=== PATIENT | female | born 1990 | race Caucasian/White ===

== ENCOUNTER 2017-02-10 19:51 | Inpatient (IN) | payer SELFPAY ==
[2017-02-10] MEDS ORDERED: LORazepam TAB(*) 1 MG PO ONE ×2 (20:29→21:17)
[2017-02-10 21:53] LABS: Hematocrit 25 % (35-47); Hemoglobin 7.6 g/dl (12.0-16.0); Mean Corpuscular HGB Conc 30 g/dl (31-36); Mean Corpuscular Hemoglobin 24 pg (27-31); Mean Corpuscular Volume 78 fL (80-97); Red Cell Distribution Width 18 % (10.5-15); White Blood Count 3.4 10^3/ul (3.5-10.8)
[2017-02-10 21:56] LABS: Comments Flag Yes
[2017-02-10 21:57] LABS: Add Diff/Slide Review? Slide Review Added
[2017-02-10 22:07] LABS: ALT 143 U/L (7-52); AST 277 U/L (13-39); Acetaminophen < 15 mcg/mL; Albumin 4.3 g/dL (3.2-5.2); Alcohol 145 mg/dL (<10); Alkaline Phosphatase 132 U/L (34-104); Anion Gap 14 mmol/L (2-11); Blood Urea Nitrogen 9 mg/dL (6-24); CO2 Carbon Dioxide 23 mmol/L (22-32); Calcium 9.3 mg/dL (8.6-10.3); Carbamazepine 4.7 mcg/mL (4.0-12.0); Chloride 99 mmol/L (101-111); Creatine Kinase 45 U/L (10-223); EGFR African American 216.6 (>60); EGFR Non-African American 168.4 (>60); Globulin 3.1 g/dL (2-4); Glucose 84 mg/dL (70-100); Potassium 3.9 mmol/L (3.5-5.0); Salicylate < 2.50 mg/dL (<30); Sodium 136 mmol/L (133-145); Total Protein 7.4 g/dL (6.4-8.9)
[2017-02-10 22:16] LABS: Mean Platelet Volume 8 um3 (7.4-10.4); TSH (Thyroid Stimulating Horm) 0.81 mcIU/mL (0.34-5.60)
[2017-02-10 22:17] LABS: Macrocytosis 1+; Microcytosis 1+
[2017-02-10 22:18] LABS: Add Path Review? YES; Spherocytes 1+; Target Cells 1+
[2017-02-10] MEDS ORDERED: Thiamine IV* 100 MG, Folic Acid IV* 1 MG, Multiple Vitamin IV ADULT* 10 ML in NS 0.9% 1... IV ONE (22:21)
[2017-02-10] MEDS ORDERED: Magnesium Sulfate 2 GM IV* 2 GM/50 ML BAG IVPB ONE (22:22)
[2017-02-10 22:49] LABS: Magnesium 1.8 mg/dL (1.9-2.7)
--- NOTE | 2017-02-10 23:26 | HP ---
H&P (Free Text) History and Physical: PCP: none Date/Time of Evaluation: 01/2300 CC: tremors, alcohol withdrawal HPI: Mrs Oneal is a 26YO homeless female alcoholic tremulous and tachycardic. She last drank one 24oz beer this AM seemingly incompatible with her current serum alcohol of 145. However, when asked how much she drank last night she replies, "That's a different story." and admits to drinking approximately seven 24oz beers last night. She states she has some discomfort with deep breathing, but denies cough, congestion, F/C, N/V, abdominal pain, chest pain, palpitations , black/bloody stool, or other issues. She took tegretol earlier to see if it would help and presented when it "didn't do much". Initially she was NSR, but with ED observation she became more tremulous and developed tachycardia in the low 100s consistent with evolving delirium tremens and will be admitted for management. PMedHx alcoholism Allergies No Known Allergies Allergy (Verified 02/10/17 20:29) Ambulatory Orders carBAMazepine ER TAB(*) [Tegretol Xr TAB(*)] 200 mg PO BID 11/06/16 PSurgHx x2 SocHx: 1/2PPD cigarettes, 6-7 24oz beers daily, denies recreational drugs; [place] full code status FamHx: Mother, Father, brothers x4, & sisters x3 all healthy. One brother passed from being "decapitated by a train". ROS: as above, otherwise reviewed and all were negative Constitutional: NAD, normally developed, malnourished, unkempt, malodorous white female vitals: Vital Signs Temp 37.2 C 02/10/17 20:32 Pulse 106 02/10/17 23:00 Resp 16 02/10/17 22:19 BP 104/62 02/10/17 23:00 Pulse Ox 96 02/10/17 23:00 Intake & Output 02/09/17 02/10/17 02/10/17 23:59 11:59 23:59 Weight 53.524 kg HEENM: atraumatic; sclera/conjunctiva: non-icteric/clear; hearing: intact; oropharynx: clear, mucosa moist Neck: soft tissue: non-tender; thyroid: normal Pulmonary: clear to auscultation bilaterally, good aeration, no accessory muscle use CV: RR/RR, normal S1S2, no carotid bruit, no jugular venous distention, 2+ B DP/ PT, no edema Abdominal: soft, non-distended, non-tender, no rebound/guarding/rigidity, normoactive bowel sounds, no hepatosplenomegaly or masses, no costovertebral angle tenderness Musculoskeletal: general: grossly intact; gait: stable Integumental: normal appearance and texture of exposed skin Psychiatric orientation: AA&O to PPS affect: calm mood: cooperative eye contact: poor content: not forthcoming responses: evasive insight: poor to fair Testing: Lab Results 02/10/17 02/10/17 02/10/17 Range/Units 21:23 21:23 21:23 WBC 3.4 L (3.5-10.8) 10^3/ul RBC 3.20 L (4.0-5.4) 10^6/ul Hgb 7.6 L (12.0-16.0) g/dl Hct 25 L (35-47) % MCV 78 L (80-97) fL MCH 24 L (27-31) pg MCHC 30 L (31-36) g/dl RDW 18 H (10.5-15) % Plt Count 90 L (150-450) 10^3/ul MPV 8 (7.4-10.4) um3 Neut % (Auto) 76.4 (38-83) % Lymph % (Auto) 13.5 L (25-47) % [place] % (Auto) 8.5 (1-9) % Eos % (Auto) 0.9 (0-6) % Baso % (Auto) 0.7 (0-2) % Absolute Neuts (auto) 2.6 (1.5-7.7) 10^3/ul Absolute Lymphs (auto) 0.5 L (1.0-4.8) 10^3/ul Absolute Monos (auto) 0.3 (0-0.8) 10^3/ul Absolute Eos (auto) 0 (0-0.6) 10^3/ul Absolute Basos (auto) 0 (0-0.2) 10^3/ul Absolute Nucleated RBC 0 10^3/ul Nucleated RBC % 0.1 Normal RBC Morphology Not Reportable Microcytosis 1+ Macrocytosis 1+ Spherocytes 1+ Target Cells 1+ Elliptocytes 1+ Hem Pathologist Commnt Pending Sodium 136 (133-145) mmol/L Potassium 3.9 (3.5-5.0) mmol/L Chloride 99 L (101-111) mmol/L Carbon Dioxide 23 (22-32) mmol/L Anion Gap 14 H (2-11) mmol/L BUN 9 (6-24) mg/dL Creatinine 0.45 L (0.51-0.95) mg/dL Est GFR ( Amer) 216.6 (>60) Est GFR (Non-Af Amer) 168.4 (>60) BUN/Creatinine Ratio 20.0 (8-20) Glucose 84 (70-100) mg/dL Lactic Acid 3.2 H* (0.5-2.0) mmol/L Calcium 9.3 (8.6-10.3) mg/dL Magnesium 1.8 L (1.9-2.7) mg/dL Total Bilirubin 0.60 (0.2-1.0) mg/dL AST 277 H (13-39) U/L ALT 143 H (7-52) U/L Alkaline Phosphatase 132 H (34-104) U/L Total Creatine Kinase 45 (10-223) U/L Total Protein 7.4 (6.4-8.9) g/dL Albumin 4.3 (3.2-5.2) g/dL Globulin 3.1 (2-4) g/dL Albumin/Globulin Ratio 1.4 (1-3) TSH 0.81 (0.34-5.60) mcIU/mL Salicylates < 2.50 (<30) mg/dL Acetaminophen < 15 mcg/mL Carbamazepine 4.7 (4.0-12.0) mcg/mL Serum Alcohol 145 H (<10) mg/dL ECG, personally reviewed: NSR rate 83, no ischemia CXR: ordered, pending Impression: 26F alcoholic experiencing withdrawal DIAGNOSIS & PLAN Primary alcohol withdrawal : AST/ALT consistent, increased from prior : replete Mg++ : WAM protocol : IVFs : social media developer consult : supportive care discomfort w/ inspiration : check CXR pancytopenia : suspect toxic marrow effect of alcohol anemia, worse, newly microcytic : suspect 2nd alcoholic gastritis vs subacute/recent GI bleed : type & screen : check anemia labs : check stool for occult blood : trend H&H Admission Rational: inpatient for alcohol withdrawal not anticipated to adequately controlled w/i 48h to allow for discharge DVTp: NORBERTO Code Status: full
--- NOTE | 2017-02-10 23:29 | ED ---
renae Ospina Timothy, scribed for Jai Yang MD on 02/10/17 at 2020 . Substance Abuse/Use - HPI Summary HPI Summary: Lor Oneal is a 26 yo female presenting to [facility] with EtOH withdrawal. She is presenting with nausea, flashes of white light, shaking, chills, diarrhea 2x today, heart palpitaions for the past few days. She had one beer this morning, two beers yesterday, and her normal 1L of vodka the day before. She is on tegretol for seizures, but has not been medicating as prescribed. She was lsat in rehab 8 months ago for 28 days, voluntarily. She denies any substance use, vomiting, fever, abd pain or rapid weight loss. She is looking to get into some kind of rehab. She states she has vitamin deficiencies. She is currently homeless. Her MHx includes seizures, asthma, Hep C, anxiety, heroin abuse, alcohol abuse, tobacco use. - History Of Current Complaint Stated Complaint: ETOH WITHDRAWL Time Seen by Provider: 02/10/17 20:20 Hx Obtained From: Patient Ingestion History: Type/Name Of Drug - EtOH Overdose Characteristics: Oral Severity Initially: Moderate Severity Currently: Moderate Associated Signs And Symptoms: Palpitations, Nausea, Diarrhea, Palpitations, Other: - white flashes of light, tremors at rest, chills Related Hx: Drug/Alcohol Last Used @ - this morning, EtOH - 1 beer - Allergies/Home Medications Allergies/Adverse Reactions: Allergies Allergy/AdvReac Type Severity Reaction Status Date / Time No Known Allergies Allergy Verified 02/10/17 20:29 PMH/Surg Hx/FS Hx/Imm Hx Respiratory History: Reports: Hx Asthma GI History: Reports: Other GI Disorders - Hepatitis C Neurological History: Reports: Hx Seizures Psychiatric History: Reports: Hx Anxiety, Hx Substance Abuse - hx heroin abuse - stopped suboxone 12/2015, etoh abuse - Surgical History Surgery Procedure, Year, and Place: x2 Infectious Disease History: Reports: Hx Hepatitis - HCV Denies: Traveled Outside the [place] in Last 30 Days - Family History Known Family History: Positive: Hypertension Negative: Other - alcohol abuse - Social History Alcohol Use: Daily Alcohol Amount: one liter of vodka per day Hx Substance Use: Yes Substance Use Type: Reports: Heroin Substance Use Comment - Amount & Last Used: former heroin use per pt Hx Tobacco Use: No Smoking Status (MU): Light Every Day Tobacco Smoker Type: Cigarettes Have You Smoked in the Last Year: Yes Review of Systems Positive: Chills, Fatigue, Other - tremors Eyes: Other - white flashes ENT: Negative Positive: Palpitations Respiratory: Negative Positive: Diarrhea, Nausea. Negative: Abdominal Pain, Vomiting Genitourinary: Negative Musculoskeletal: Negative Skin: Negative Neurological: Negative Psychological: Normal All Other Systems Reviewed And Are Negative: Yes Physical Exam - Summary Physical Exam Summary: The patient is well-nourished in no acute distress and in no acute pain, she has a tremor at rest. The skin is warm and dry and skin color reflects adequate perfusion. HEENT: The head is normocephalic and atraumatic. The pupils are equal and reactive. The conjunctivae are clear and without drainage. Nares are patent and without drainage. Mouth reveals dry mucous membranes and the throat is without erythema and exudate. The external ears are intact. The ear canals are patent and without drainage. The tympanic membranes are intact. Neck is supple with full range of motion and non-tender. There are no carotid bruits. There is no neck vein distension. Respiratory: Chest is non-tender. Lungs are clear to auscultation and breath sounds are symmetrical and equal. Cardiovascular: Heart is regular rate and rhythm. There is no murmur or rub auscultated. There is no peripheral edema and distal pulses are symmetrical and equal. Abdomen: The abdomen is soft and non-tender. There are normal bowel sounds heard in all four quadrants and there is no organomegaly palpated. Musculoskeletal: There is no back pain noted. Extremities are non-tender with full range of motion. There is good capillary refill. There is no peripheral edema or calf tenderness elicited. Neurological: Patient is alert and oriented to person, place and time. The patient has symmetrical motor strength in all four extremities. Cranial nerves are grossly intact. Deep tendon reflexes are symmetrical and equal in all four extremities. Pt can perform finger to nose with no difficulty Psychiatric: The patient has an appropriate affect and does not exhibit any anxiety or depression. Triage Information Reviewed: Yes Vital Signs On Initial Exam: Initial Vital Signs Temp 98.9 F 02/10/17 20:32 Pulse 93 02/10/17 20:32 Resp 16 02/10/17 20:32 BP 120/75 02/10/17 20:32 Pulse Ox 97 02/10/17 20:32 Vital Signs Reviewed: Yes Diagnostics - Vital Signs Vital Signs Temp Pulse Resp BP Pulse Ox 02/10/17 22:39 104 95 02/10/17 22:30 106/72 02/10/17 22:21 102 96 02/10/17 22:20 93 96 02/10/17 22:19 98 16 104/59 95 02/10/17 21:06 82 16 132/76 100 02/10/17 20:49 16 02/10/17 20:32 98.9 F 93 16 120/75 97 - Laboratory Lab Results: Lab Results 02/10/17 02/10/17 02/10/17 Range/Units 21:23 21:23 21:23 WBC 3.4 L (3.5-10.8) 10^3/ul RBC 3.20 L (4.0-5.4) 10^6/ul Hgb 7.6 L (12.0-16.0) g/dl Hct 25 L (35-47) % MCV 78 L (80-97) fL MCH 24 L (27-31) pg MCHC 30 L (31-36) g/dl RDW 18 H (10.5-15) % Plt Count 90 L (150-450) 10^3/ul MPV 8 (7.4-10.4) um3 Neut % (Auto) 76.4 (38-83) % Lymph % (Auto) 13.5 L (25-47) % [place] % (Auto) 8.5 (1-9) % Eos % (Auto) 0.9 (0-6) % Baso % (Auto) 0.7 (0-2) % Absolute Neuts (auto) 2.6 (1.5-7.7) 10^3/ul Absolute Lymphs (auto) 0.5 L (1.0-4.8) 10^3/ul Absolute Monos (auto) 0.3 (0-0.8) 10^3/ul Absolute Eos (auto) 0 (0-0.6) 10^3/ul Absolute Basos (auto) 0 (0-0.2) 10^3/ul Absolute Nucleated RBC 0 10^3/ul Nucleated RBC % 0.1 Normal RBC Morphology Not Reportable Microcytosis 1+ Macrocytosis 1+ Spherocytes 1+ Target Cells 1+ Elliptocytes 1+ Hem Pathologist Commnt Pending Sodium 136 (133-145) mmol/L Potassium 3.9 (3.5-5.0) mmol/L Chloride 99 L (101-111) mmol/L Carbon Dioxide 23 (22-32) mmol/L Anion Gap 14 H (2-11) mmol/L BUN 9 (6-24) mg/dL Creatinine 0.45 L (0.51-0.95) mg/dL Est GFR ( Amer) 216.6 (>60) Est GFR (Non-Af Amer) 168.4 (>60) BUN/Creatinine Ratio 20.0 (8-20) Glucose 84 (70-100) mg/dL Lactic Acid 3.2 H* (0.5-2.0) mmol/L Calcium 9.3 (8.6-10.3) mg/dL Magnesium 1.8 L (1.9-2.7) mg/dL Total Bilirubin 0.60 (0.2-1.0) mg/dL AST 277 H (13-39) U/L ALT 143 H (7-52) U/L Alkaline Phosphatase 132 H (34-104) U/L Total Creatine Kinase 45 (10-223) U/L Total Protein 7.4 (6.4-8.9) g/dL Albumin 4.3 (3.2-5.2) g/dL Globulin 3.1 (2-4) g/dL Albumin/Globulin Ratio 1.4 (1-3) TSH 0.81 (0.34-5.60) mcIU/mL Salicylates < 2.50 (<30) mg/dL Acetaminophen < 15 mcg/mL Carbamazepine 4.7 (4.0-12.0) mcg/mL Serum Alcohol 145 H (<10) mg/dL Result Diagrams: 02/10/17 21:23 02/10/17 21:23 Lab Statement: Any lab studies that have been ordered have been reviewed, and results considered in the medical decision making process. - EKG 2032 Cardiac Rate: NL - 83 BPM EKG Interpretation: NSR @ 83 BPM, normal axis, normal EKG. Some artifact, Pt w/ tremors Course/Dx - Course Assessment/Plan: Lor Oneal is a 26 yo female presenting [facility] with EtOH withdrawal, c/o termors, chills, ausea, flashes of white light, diarrhea 2x today, and heart palpitaions for the past few days. Her H&H was low, her LFT's were high, note high lactic acid of 3.2. Pt was shaking and exhibiting signs of alcohol withdrawal in room. Though she states she only had one beer today, her serum alcohol levels were 145. After clinical examination, normal EKG, and review of her lab work, as well as discussion with Dr. Valadez, she will be admitted to [facility] for detox with alcohol withdrawal, pancytopenia, and alcohol abuse. - Diagnoses Differential Diagnosis/HQI/PQRI: Positive: Alcohol Withdrawal Provider Diagnoses: Alcohol withdrawal, Alcohol abuse, Pancytopenia - Physician Notifications Discussed Care Of Patient With: 2220 - Dr. Valadez (hospitalist) - discussed Pt condition, agrees to admit Pt. Instructed by Provider To: Admit As Inpatient Discharge - Discharge Plan Condition: Stable Disposition: ADMITTED TO [facility] Discharge Disposition Comment: admitted for alcohol withdrawal and detoxification. The documentation as recorded by the renae diaz Timothy accurately reflects the service I personally performed and the decisions made by me, Jai Yang MD.
[2017-02-11] MEDS ORDERED: Albuterol 2.5 MG/3 ML NEB.SOL* (0.083%) INH PRN (00:19)
[2017-02-11] MEDS ORDERED: Acetaminophen TAB* 325 MG PO PRN (00:19)
[2017-02-11 00:43] LABS: Corrected Retic Count 1.2 % (0.5-1.5)
[2017-02-11 00:52] LABS: Total Iron Binding Capacity 444 mcg/dL (250-450); Transferrin 317 mg/dL (203-362)
[2017-02-11 01:14] LABS: Ferritin 41.7 ng/mL (11-307)
[2017-02-11 01:16] LABS: Iron < 15 ug/dL (50-212)
[2017-02-11 01:18] LABS: Vitamin B12 962 pg/mL (180-914)
[2017-02-11 01:52] LABS: Urine Bacteria 1+ (Absent); Urine Bilirubin Negative (Negative); Urine Glucose Negative (Negative); Urine Nitrite Positive (Negative)
[2017-02-11 02:01] LABS: Benzodiazepine Urine Screen None Detected (None Detect)
[2017-02-11 02:11] LABS: Hematocrit 24 % (35-47); Hemoglobin 7.6 g/dl (12.0-16.0)
[2017-02-11 02:17] LABS: Comments Flag Yes
[2017-02-11] MEDS ORDERED: Mouth Piece, Nicotine* 1 EACH CARTRIDGE INH ONE (03:00)
[2017-02-11] MEDS: LORazepam INJ* 2 MG/ML 1 ML VIAL IV SCH ×3 (04:03→15:56)
[2017-02-11 06:27] LABS: Hematocrit 23 % (35-47); Mean Corpuscular HGB Conc 31 g/dl (31-36); Mean Corpuscular Hemoglobin 24 pg (27-31); Mean Corpuscular Volume 77 fL (80-97); Mean Platelet Volume 9 um3 (7.4-10.4); Red Cell Distribution Width 17 % (10.5-15); White Blood Count 2.3 10^3/ul (3.5-10.8)
[2017-02-11 06:28] LABS: Comments Flag Yes
[2017-02-11] MEDS: NS 0.9% 1000 ML* 1,000 ML IV SCH ×2 (07:10→17:59)
--- NOTE | 2017-02-11 07:53 | RAD ---
INDICATION: Chest pain with inspiration COMPARISON: Rib series November 06, 2016 TECHNIQUE: An AP portable view obtained at 0053 hours is submitted. FINDINGS: Bones/Soft Tissues: There are no acute bony findings. Cardiomediastinal: The cardiomediastinal silhouette is normal. Lungs: There are no infiltrates. There is no pneumothorax Pleura: There are no pleural effusions. Other: None IMPRESSION: NEGATIVE EXAMINATION.
[2017-02-11] MEDS: Multivitamins/Minerals TAB PO SCH (08:17)
[2017-02-11] MEDS: Folic Acid TAB* 1 MG PO SCH (08:17)
[2017-02-11] MEDS: Thiamine TAB* 100 MG TAB PO SCH (08:17)
[2017-02-11] MEDS ORDERED: LORazepam TAB(*) 1 MG PO ONE (10:34)
[2017-02-11] MEDS: chlordiazePOXIDE CAP* 25 MG PO SCH ×3 (10:49→20:49)
[2017-02-11] MEDS ORDERED: Loperamide CAP* 2 MG PO ONE (11:19)
--- NOTE | 2017-02-11 12:59 | PN ---
Subjective Date of Service: 02/11/17 Interval History: Patient seen and examined at bedside. Lor is sitting on edge of bed, eating breakfast. She denies CP, SOB, abd pain. She reports that her diarrhea usually goes away when she drinks alcohol; she usually has diarrhea intermittently but has never had any workup or official diagnosis of this. She reports occasional palpitations. She expressed concern for her hair falling out and flaking seen in her hair. She reports that she has "a plan" for alcohol rehab in [place] and had a ride. She does not want to go straight from [facility] to there because she wants to go get her bag that is stored "[place]where [place] Telemetry: Sinus tachycardia 100s-120s Family History: Unchanged from Admission Social History: Unchanged from Admission Past Medical History: Unchanged from Admission Objective Active Medications: Acetaminophen (Tylenol Tab*) 650 mg PO Q4H PRN PRN Reason: PAIN Last Admin: 02/11/17 04:04 Dose: 650 mg Albuterol (Ventolin 2.5 Mg/3 Ml Neb.Jo*) 2.5 mg INH Q2H PRN PRN Reason: SOB/WHEEZING Chlordiazepoxide (Librium Cap*) 50 mg PO TID [facility] Last Admin: 02/11/17 10:49 Dose: 50 mg Folic Acid (Folvite Tab*) 1 mg PO DAILY [facility] Last Admin: 02/11/17 08:17 Dose: 1 mg Heparin Sodium (Porcine) (Heparin Flush Picc/Ml/Cvc(*)) 1 - 3 ml FLUSH 0600, 1800 [facility] PRN Reason: Protocol Sodium Chloride (Ns 0.9% 1000 Ml*) 1,000 mls @ 125 mls/hr IV PER RATE [facility] Last Admin: 02/11/17 07:10 Dose: 125 mls/hr Lorazepam (Ativan Inj*) 0 mg IV .PER WAM SCORE [facility] PRN Reason: Protocol Last Admin: 02/11/17 08:16 Dose: 2 mg Multivitamins/Minerals (Theragran/Minerals Tab*) 1 tab PO DAILY [facility] Last Admin: 02/11/17 08:17 Dose: 1 tab Nicotine (Nicotine Inhaler*) 10 mg INH Q2H PRN PRN Reason: CRAVING Thiamine HCl (Vitamin B-1 Tab*) 100 mg PO DAILY [facility] Last Admin: 03/15/17 08:17 Dose: 100 mg Vital Signs 02/10/17 02/10/17 02/10/17 23:00 23:11 23:30 Temperature Pulse Rate 106 Respiratory 14 13 Rate Blood Pressure 104/62 104/62 (mmHg) O2 Sat by Pulse 96 Oximetry 02/11/17 02/11/17 02/11/17 00:11 00:20 00:30 Temperature Pulse Rate Respiratory 16 11 Rate Blood Pressure 113/69 (mmHg) O2 Sat by Pulse Oximetry 02/11/17 02/11/17 02/11/17 01:00 01:30 01:48 Temperature Pulse Rate 174 175 106 Respiratory 18 Rate Blood Pressure (mmHg) O2 Sat by Pulse 100 100 96 Oximetry 02/11/17 02/11/17 02/11/17 01:53 02:00 02:30 Temperature 98.5 F Pulse Rate 112 161 Respiratory 18 14 Rate Blood Pressure 113/69 (mmHg) O2 Sat by Pulse 99 100 Oximetry 02/11/17 02/11/17 02/11/17 03:00 03:30 03:52 Temperature 99.1 F Pulse Rate 185 170 115 Respiratory 20 Rate Blood Pressure 124/69 (mmHg) O2 Sat by Pulse 100 100 98 Oximetry 02/11/17 02/11/17 02/11/17 04:00 04:03 04:30 Temperature Pulse Rate 156 168 Respiratory 20 Rate Blood Pressure (mmHg) O2 Sat by Pulse 100 100 Oximetry 02/11/17 02/11/17 02/11/17 05:00 05:03 05:30 Temperature Pulse Rate 168 Respiratory 39 18 18 Rate Blood Pressure (mmHg) O2 Sat by Pulse 100 Oximetry 02/11/17 02/11/17 02/11/17 06:00 06:30 07:00 Temperature Pulse Rate Respiratory 14 14 14 Rate Blood Pressure (mmHg) O2 Sat by Pulse Oximetry 02/11/17 02/11/17 02/11/17 07:28 07:30 07:52 Temperature 98.9 F Pulse Rate 97 Respiratory 19 14 16 Rate Blood Pressure 122/62 (mmHg) O2 Sat by Pulse 99 Oximetry 02/11/17 02/11/17 02/11/17 08:00 08:16 08:30 Temperature Pulse Rate Respiratory 18 18 11 Rate Blood Pressure (mmHg) O2 Sat by Pulse Oximetry 02/11/17 02/11/17 02/11/17 09:00 09:16 09:30 Temperature Pulse Rate Respiratory 19 16 15 Rate Blood Pressure (mmHg) O2 Sat by Pulse Oximetry 02/11/17 02/11/17 02/11/17 09:59 10:00 10:30 Temperature Pulse Rate Respiratory 15 17 16 Rate Blood Pressure 108/64 111/64 (mmHg) O2 Sat by Pulse Oximetry 02/11/17 02/11/17 02/11/17 10:49 11:00 11:30 Temperature Pulse Rate Respiratory 18 19 15 Rate Blood Pressure (mmHg) O2 Sat by Pulse Oximetry 02/11/17 02/11/17 02/11/17 11:54 12:00 12:30 Temperature Pulse Rate Respiratory 18 17 17 Rate Blood Pressure 112/81 (mmHg) O2 Sat by Pulse Oximetry Oxygen Devices in Use Now: None Appearance: Young female, disheveled, sitting up, in NAD Eyes: PERRLA Ears/Nose/Mouth/Throat: Mucous Membranes Moist Neck: NL Appearance and Movements; NL JVP Respiratory: Symmetrical Chest Expansion and Respiratory Effort, Clear to Auscultation Cardiovascular: NL Sounds; No Murmurs; No JVD, RRR - tachycardic Abdominal: NL Sounds; No Tenderness; No Distention Extremities: No Edema Skin: - - dry skin to BLE; alopecia and significant sebhorrheic dermatatis noted to scalp Neurological: Alert and Oriented x 3 Lines/Tubes/Other Access: Clean, Dry and Intact PICC Line - midline Nutrition: Taking PO's Result Diagrams: 02/11/17 06:17 02/10/17 21:23 Additional Lab and Data: Lab Results 02/10/17 02/10/17 02/10/17 Range/Units 21:23 21:23 21:23 WBC 3.4 L (3.5-10.8) 10^3/ul RBC 3.20 L (4.0-5.4) 10^6/ul Hgb 7.6 L (12.0-16.0) g/dl Hct 25 L (35-47) % MCV 78 L (80-97) fL MCH 24 L (27-31) pg MCHC 30 L (31-36) g/dl RDW 18 H (10.5-15) % Plt Count 90 L (150-450) 10^3/ul MPV 8 (7.4-10.4) um3 Neut % (Auto) 76.4 (38-83) % Lymph % (Auto) 13.5 L (25-47) % [place] % (Auto) 8.5 (1-9) % Eos % (Auto) 0.9 (0-6) % Baso % (Auto) 0.7 (0-2) % Absolute Neuts (auto) 2.6 (1.5-7.7) 10^3/ul Absolute Lymphs (auto) 0.5 L (1.0-4.8) 10^3/ul Absolute Monos (auto) 0.3 (0-0.8) 10^3/ul Absolute Eos (auto) 0 (0-0.6) 10^3/ul Absolute Basos (auto) 0 (0-0.2) 10^3/ul Absolute Nucleated RBC 0 10^3/ul Nucleated RBC % 0.1 Normal RBC Morphology Not Reportable Microcytosis 1+ Macrocytosis 1+ Spherocytes 1+ Target Cells 1+ Elliptocytes 1+ Hem Pathologist Commnt Pending Sodium 136 (133-145) mmol/L Potassium 3.9 (3.5-5.0) mmol/L Chloride 99 L (101-111) mmol/L Carbon Dioxide 23 (22-32) mmol/L Anion Gap 14 H (2-11) mmol/L BUN 9 (6-24) mg/dL Creatinine 0.45 L (0.51-0.95) mg/dL Est GFR ( Amer) 216.6 (>60) Est GFR (Non-Af Amer) 168.4 (>60) BUN/Creatinine Ratio 20.0 (8-20) Glucose 84 (70-100) mg/dL Lactic Acid 3.2 H* (0.5-2.0) mmol/L Calcium 9.3 (8.6-10.3) mg/dL Magnesium 1.8 L (1.9-2.7) mg/dL Total Bilirubin 0.60 (0.2-1.0) mg/dL AST 277 H (13-39) U/L ALT 143 H (7-52) U/L Alkaline Phosphatase 132 H (34-104) U/L Total Creatine Kinase 45 (10-223) U/L Total Protein 7.4 (6.4-8.9) g/dL Albumin 4.3 (3.2-5.2) g/dL Globulin 3.1 (2-4) g/dL Albumin/Globulin Ratio 1.4 (1-3) TSH 0.81 (0.34-5.60) mcIU/mL Salicylates < 2.50 (<30) mg/dL Acetaminophen < 15 mcg/mL Carbamazepine 4.7 (4.0-12.0) mcg/mL Serum Alcohol 145 H (<10) mg/dL Microbiology and Other Data: Microbiology 02/11/17 11:10 Stool Occult Blood (CONSTANZA) - Final Stool Assess/Plan/Problems-Billing Assessment: Ms. Oneal is a 26 yo female with a PMH of ETOH abuse and pancytopenia who presented to the ED on 02/10/17 with tremors and tachycardia that is likely secondary to alcohol withdrawal. - Patient Problems (1) Alcohol withdrawal Code(s): F10.239 - ALCOHOL DEPENDENCE WITH WITHDRAWAL, UNSPECIFIED Comment: WAM protocol with prn lorazepam Will add Librium, as there is currently no IV access. Order for midline placed. No seizure activity noted. Continue IVF, thiamine, fall precautions. SW consult for outpatient treatment options. (2) Pancytopenia Code(s): D61.818 - OTHER PANCYTOPENIA Comment: Stool occult negative. Suspect this is secondary to liver disease and alcohol use. Will continue to trend labs. Recheck HH today and type and screen, as anemia may be contributing to tachycardia. (3) Acute seborrheic dermatitis Code(s): L21.9 - SEBORRHEIC DERMATITIS, UNSPECIFIED Comment: With hair loss. No lice noted, though it is difficult to assess scalp, as there is significant layers of dermatitis. Patient encouraged to gently wash hair with shampoo to break up scalp dermatitis. Pharmacy does not have specialty shampoos available. (4) DVT prophylaxis Code(s): VYZ5578 - Comment: Low risk NORBERTO josephemanuel Status and Disposition: Inpatient admission. SW following. Anticipate LOS >2 days.
[2017-02-11] MEDS: Moisturizing CREAM* 120 GM JAR TOPICAL SCH ×2 (14:52→20:50)
[2017-02-11] MEDS: Nicotine Inhaler* 10 MG AMP INH PRN ×2 (15:57→20:51)
[2017-02-11 18:27] LABS: Hematocrit 24 % (35-47); Hemoglobin 7.3 g/dl (12.0-16.0); Mean Corpuscular HGB Conc 30 g/dl (31-36); Mean Corpuscular Hemoglobin 24 pg (27-31); Mean Corpuscular Volume 78 fL (80-97); Mean Platelet Volume 8 um3 (7.4-10.4); Red Blood Count 3.12 10^6/ul (4.0-5.4); Red Cell Distribution Width 18 % (10.5-15)
[2017-02-11 18:28] LABS: Comments Flag Yes; White Blood Count 2.4 10^3/ul (3.5-10.8)
[2017-02-12] MEDS: NS 0.9% 1000 ML* 1,000 ML IV SCH ×2 (02:40→10:49)
[2017-02-12 04:46] LABS: Comments Flag Yes; Hematocrit 23 % (35-47); Hemoglobin 6.9 g/dl (12.0-16.0); Mean Corpuscular HGB Conc 30 g/dl (31-36); Mean Corpuscular Hemoglobin 24 pg (27-31); Mean Corpuscular Volume 78 fL (80-97); Mean Platelet Volume 8 um3 (7.4-10.4); Red Blood Count 2.94 10^6/ul (4.0-5.4); Red Cell Distribution Width 17 % (10.5-15)
[2017-02-12 04:55] LABS: Add Diff/Slide Review? Manual Diff Added
[2017-02-12 04:57] LABS: BUN/Creatinine Ratio 12.2 (8-20); Calcium 8.9 mg/dL (8.6-10.3); EGFR African American 196.3 (>60); EGFR Non-African American 152.7 (>60); Potassium 3.5 mmol/L (3.5-5.0)
[2017-02-12 05:24] LABS: Eosinophils % 3 % (0-6); Neutrophil % 51 % (38-83)
[2017-02-12 05:25] LABS: Hypochromasia 1+; Polychromasia 1+; Reactive Lymph % 2 % (0-6)
[2017-02-12] MEDS: LORazepam INJ* 2 MG/ML 1 ML VIAL IV SCH (08:05)
[2017-02-12] MEDS: Folic Acid TAB* 1 MG PO SCH (08:05)
[2017-02-12] MEDS: Thiamine TAB* 100 MG TAB PO SCH (08:05)
[2017-02-12] MEDS: chlordiazePOXIDE CAP* 25 MG PO SCH (08:05)
[2017-02-12] MEDS: Multivitamins/Minerals TAB PO SCH (08:05)
[2017-02-12] MEDS: Moisturizing CREAM* 120 GM JAR TOPICAL SCH (08:08)
[2017-02-12 10:26] VITALS: BP 103/59
--- NOTE | 2017-02-12 11:53 | PN ---
Subjective Date of Service: 02/12/17 Interval History: Ms. Oneal states that she Family History: Unchanged from Admission Social History: Unchanged from Admission Past Medical History: Unchanged from Admission Objective Active Medications: Acetaminophen (Tylenol Tab*) 650 mg PO Q4H PRN PRN Reason: PAIN Last Admin: 02/11/17 04:04 Dose: 650 mg Albuterol (Ventolin 2.5 Mg/3 Ml Neb.Jo*) 2.5 mg INH Q2H PRN PRN Reason: SOB/WHEEZING Chlordiazepoxide (Librium Cap*) 50 mg PO TID [facility] Last Admin: 02/12/17 08:05 Dose: 50 mg Folic Acid (Folvite Tab*) 1 mg PO DAILY [facility] Last Admin: 02/12/17 08:05 Dose: 1 mg Heparin Sodium (Porcine) (Heparin Flush Picc/Ml/Cvc(*)) 1 - 3 ml FLUSH 0600, 1800 [facility] PRN Reason: Protocol Last Admin: 02/12/17 05:49 Dose: Not Given Sodium Chloride (Ns 0.9% 1000 Ml*) 1,000 mls @ 125 mls/hr IV PER RATE [facility] Last Admin: 02/12/17 10:49 Dose: 125 mls/hr Lorazepam (Ativan Inj*) 0 mg IV .PER WAM SCORE [facility] PRN Reason: Protocol Last Admin: 02/12/17 08:05 Dose: 2 mg Multi-Ingredient Ointment (Hydrocerin*) 1 applic TOPICAL TID [facility] Last Admin: 02/12/17 08:08 Dose: 1 applic Multivitamins/Minerals (Theragran/Minerals Tab*) 1 tab PO DAILY [facility] Last Admin: 02/12/17 08:05 Dose: 1 tab Nicotine (Nicotine Inhaler*) 10 mg INH Q2H PRN PRN Reason: CRAVING Last Admin: 02/11/17 20:51 Dose: 10 mg Thiamine HCl (Vitamin B-1 Tab*) 100 mg PO DAILY [facility] Last Admin: 02/12/17 08:05 Dose: 100 mg Vital Signs 02/11/17 02/11/17 02/11/17 11:54 12:00 12:30 Temperature Pulse Rate Respiratory 18 17 17 Rate Blood Pressure 112/81 (mmHg) O2 Sat by Pulse Oximetry 02/11/17 02/11/17 02/11/17 12:49 13:00 13:30 Temperature Pulse Rate Respiratory 18 21 18 Rate Blood Pressure (mmHg) O2 Sat by Pulse Oximetry 02/11/17 02/11/17 02/11/17 14:00 14:52 15:17 Temperature 99.4 F Pulse Rate 112 Respiratory 16 18 Rate Blood Pressure 113/66 114/62 (mmHg) O2 Sat by Pulse 100 Oximetry 02/11/17 02/11/17 02/11/17 15:56 16:56 17:55 Temperature 99.6 F Pulse Rate 108 Respiratory 18 18 Rate Blood Pressure 105/54 (mmHg) O2 Sat by Pulse 99 Oximetry 02/11/17 02/11/17 02/11/17 20:00 20:05 20:49 Temperature 98.9 F Pulse Rate 99 Respiratory 18 18 Rate Blood Pressure 109/64 (mmHg) O2 Sat by Pulse 100 Oximetry 02/11/17 02/11/17 02/11/17 21:58 22:00 22:49 Temperature 99.5 F Pulse Rate 92 Respiratory 17 16 Rate Blood Pressure 119/76 (mmHg) O2 Sat by Pulse 100 Oximetry 02/12/17 02/12/17 02/12/17 00:04 02:00 02:07 Temperature 98.6 F 98.4 F Pulse Rate 98 77 Respiratory 16 20 20 Rate Blood Pressure 120/69 104/62 (mmHg) O2 Sat by Pulse 99 100 Oximetry 02/12/17 02/12/17 02/12/17 04:00 04:17 06:00 Temperature 98.4 F Pulse Rate 80 Respiratory 20 20 18 Rate Blood Pressure 103/63 (mmHg) O2 Sat by Pulse 100 Oximetry 02/12/17 02/12/17 02/12/17 06:05 07:52 07:53 Temperature 98.3 F 98.9 F Pulse Rate 82 84 Respiratory 20 20 20 Rate Blood Pressure 108/67 106/59 (mmHg) O2 Sat by Pulse 99 100 Oximetry 02/12/17 02/12/17 02/12/17 08:05 09:05 10:04 Temperature 99.5 F Pulse Rate 87 Respiratory 16 20 18 Rate Blood Pressure 103/59 (mmHg) O2 Sat by Pulse 99 Oximetry 02/12/17 10:41 Temperature Pulse Rate 90 Respiratory 16 Rate Blood Pressure (mmHg) O2 Sat by Pulse 98 Oximetry Oxygen Devices in Use Now: None Result Diagrams: 02/12/17 04:30 02/12/17 04:30 Additional Lab and Data: Lab Results 02/10/17 02/10/17 02/10/17 Range/Units 21:23 21:23 21:23 WBC 3.4 L (3.5-10.8) 10^3/ul RBC 3.20 L (4.0-5.4) 10^6/ul Hgb 7.6 L (12.0-16.0) g/dl Hct 25 L (35-47) % MCV 78 L (80-97) fL MCH 24 L (27-31) pg MCHC 30 L (31-36) g/dl RDW 18 H (10.5-15) % Plt Count 90 L (150-450) 10^3/ul MPV 8 (7.4-10.4) um3 Neut % (Auto) 76.4 (38-83) % Lymph % (Auto) 13.5 L (25-47) % [place]aves % (Auto) 8.5 (1-9) % Eos % (Auto) 0.9 (0-6) % Baso % (Auto) 0.7 (0-2) % Absolute Neuts (auto) 2.6 (1.5-7.7) 10^3/ul Absolute Lymphs (auto) 0.5 L (1.0-4.8) 10^3/ul Absolute Monos (auto) 0.3 (0-0.8) 10^3/ul Absolute Eos (auto) 0 (0-0.6) 10^3/ul Absolute Basos (auto) 0 (0-0.2) 10^3/ul Absolute Nucleated RBC 0 10^3/ul Nucleated RBC % 0.1 Normal RBC Morphology Not Reportable Microcytosis 1+ Macrocytosis 1+ Spherocytes 1+ Target Cells 1+ Elliptocytes 1+ Hem Pathologist Commnt Pending Sodium 136 (133-145) mmol/L Potassium 3.9 (3.5-5.0) mmol/L Chloride 99 L (101-111) mmol/L Carbon Dioxide 23 (22-32) mmol/L Anion Gap 14 H (2-11) mmol/L BUN 9 (6-24) mg/dL Creatinine 0.45 L (0.51-0.95) mg/dL Est GFR ( Amer) 216.6 (>60) Est GFR (Non-Af Amer) 168.4 (>60) BUN/Creatinine Ratio 20.0 (8-20) Glucose 84 (70-100) mg/dL Lactic Acid 3.2 H* (0.5-2.0) mmol/L Calcium 9.3 (8.6-10.3) mg/dL Magnesium 1.8 L (1.9-2.7) mg/dL Total Bilirubin 0.60 (0.2-1.0) mg/dL AST 277 H (13-39) U/L ALT 143 H (7-52) U/L Alkaline Phosphatase 132 H (34-104) U/L Total Creatine Kinase 45 (10-223) U/L Total Protein 7.4 (6.4-8.9) g/dL Albumin 4.3 (3.2-5.2) g/dL Globulin 3.1 (2-4) g/dL Albumin/Globulin Ratio 1.4 (1-3) TSH 0.81 (0.34-5.60) mcIU/mL Salicylates < 2.50 (<30) mg/dL Acetaminophen < 15 mcg/mL Carbamazepine 4.7 (4.0-12.0) mcg/mL Serum Alcohol 145 H (<10) mg/dL Microbiology and Other Data: Microbiology 02/11/17 11:10 Stool Occult Blood (CONSTANZA) - Final Stool Assess/Plan/Problems-Billing Assessment: Ms. Oneal is a 26 yo female with a PMH of ETOH abuse and pancytopenia who presented to the ED on 02/10/17 with tremors and tachycardia that is likely secondary to alcohol withdrawal. Status and Disposition: Inpatient admission. SW following. Anticipate LOS >2 days.
--- NOTE | 2017-02-12 12:01 | PN ---
Subjective Date of Service: 02/12/17 Family History: Unchanged from Admission Social History: Unchanged from Admission Past Medical History: Unchanged from Admission Objective Active Medications: Acetaminophen (Tylenol Tab*) 650 mg PO Q4H PRN Albuterol (Ventolin 2.5 Mg/3 Ml Neb.Jo*) 2.5 mg INH Q2H PRN Chlordiazepoxide (Librium Cap*) 50 mg PO TID [facility] Folic Acid (Folvite Tab*) 1 mg PO DAILY [facility] Heparin Sodium (Porcine) (Heparin Flush Picc/Ml/Cvc(*)) 1 - 3 ml FLUSH 0600, 1800 [facility] Sodium Chloride (Ns 0.9% 1000 Ml*) 1,000 mls @ 125 mls/hr IV PER RATE [facility] Lorazepam (Ativan Inj*) 0 mg IV .PER WAM SCORE [facility] Multi-Ingredient Ointment (Hydrocerin*) 1 applic TOPICAL TID [facility] Multivitamins/Minerals (Theragran/Minerals Tab*) 1 tab PO DAILY [facility] Nicotine (Nicotine Inhaler*) 10 mg INH Q2H PRN Thiamine HCl (Vitamin B-1 Tab*) 100 mg PO DAILY [facility] Vital Signs 02/11/17 02/11/17 02/11/17 12:00 12:30 12:49 Temperature Pulse Rate Respiratory 17 17 18 Rate Blood Pressure 112/81 (mmHg) O2 Sat by Pulse Oximetry 02/11/17 02/11/17 02/11/17 13:00 13:30 14:00 Temperature Pulse Rate Respiratory 21 18 16 Rate Blood Pressure 113/66 (mmHg) O2 Sat by Pulse Oximetry 02/11/17 02/11/17 02/11/17 14:52 15:17 15:56 Temperature 99.4 F Pulse Rate 112 Respiratory 18 18 Rate Blood Pressure 114/62 (mmHg) O2 Sat by Pulse 100 Oximetry 02/11/17 02/11/17 02/11/17 16:56 17:55 20:00 Temperature 99.6 F Pulse Rate 108 Respiratory 18 18 Rate Blood Pressure 105/54 (mmHg) O2 Sat by Pulse 99 Oximetry 02/11/17 02/11/17 02/11/17 20:05 20:49 21:58 Temperature 98.9 F 99.5 F Pulse Rate 99 92 Respiratory 18 Rate Blood Pressure 109/64 119/76 (mmHg) O2 Sat by Pulse 100 100 Oximetry 02/11/17 02/11/17 02/12/17 22:00 22:49 00:04 Temperature 98.6 F Pulse Rate 98 Respiratory 17 16 16 Rate Blood Pressure 120/69 (mmHg) O2 Sat by Pulse 99 Oximetry 02/12/17 02/12/17 02/12/17 02:00 02:07 04:00 Temperature 98.4 F Pulse Rate 77 Respiratory 20 20 20 Rate Blood Pressure 104/62 (mmHg) O2 Sat by Pulse 100 Oximetry 02/12/17 02/12/17 02/12/17 04:17 06:00 06:05 Temperature 98.4 F 98.3 F Pulse Rate 80 82 Respiratory 20 18 20 Rate Blood Pressure 103/63 108/67 (mmHg) O2 Sat by Pulse 100 99 Oximetry 02/12/17 02/12/17 02/12/17 07:52 07:53 08:05 Temperature 98.9 F Pulse Rate 84 Respiratory 20 20 16 Rate Blood Pressure 106/59 (mmHg) O2 Sat by Pulse 100 Oximetry 02/12/17 02/12/17 02/12/17 09:05 10:04 10:41 Temperature 99.5 F Pulse Rate 87 90 Respiratory 20 18 16 Rate Blood Pressure 103/59 (mmHg) O2 Sat by Pulse 99 98 Oximetry Oxygen Devices in Use Now: None Appearance: Unkempt female sitting up in bed in NAD Respiratory: Symmetrical Chest Expansion and Respiratory Effort, Clear to Auscultation Cardiovascular: NL Sounds; No Murmurs; No JVD, No Edema Abdominal: NL Sounds; No Tenderness; No Distention Extremities: No Edema Skin: No Rash or Ulcers Neurological: Alert and Oriented x 3, NL Muscle Strength and Tone Nutrition: Taking PO's Result Diagrams: 02/12/17 04:30 02/12/17 04:30 Additional Lab and Data: Lab Results 02/10/17 02/10/17 02/10/17 Range/Units 21:23 21:23 21:23 WBC 3.4 L (3.5-10.8) 10^3/ul RBC 3.20 L (4.0-5.4) 10^6/ul Hgb 7.6 L (12.0-16.0) g/dl Hct 25 L (35-47) % MCV 78 L (80-97) fL MCH 24 L (27-31) pg MCHC 30 L (31-36) g/dl RDW 18 H (10.5-15) % Plt Count 90 L (150-450) 10^3/ul MPV 8 (7.4-10.4) um3 Neut % (Auto) 76.4 (38-83) % Lymph % (Auto) 13.5 L (25-47) % Cotton % (Auto) 8.5 (1-9) % Eos % (Auto) 0.9 (0-6) % Baso % (Auto) 0.7 (0-2) % Absolute Neuts (auto) 2.6 (1.5-7.7) 10^3/ul Absolute Lymphs (auto) 0.5 L (1.0-4.8) 10^3/ul Absolute Monos (auto) 0.3 (0-0.8) 10^3/ul Absolute Eos (auto) 0 (0-0.6) 10^3/ul Absolute Basos (auto) 0 (0-0.2) 10^3/ul Absolute Nucleated RBC 0 10^3/ul Nucleated RBC % 0.1 Normal RBC Morphology Not Reportable Microcytosis 1+ Macrocytosis 1+ Spherocytes 1+ Target Cells 1+ Elliptocytes 1+ Hem Pathologist Commnt Pending Sodium 136 (133-145) mmol/L Potassium 3.9 (3.5-5.0) mmol/L Chloride 99 L (101-111) mmol/L Carbon Dioxide 23 (22-32) mmol/L Anion Gap 14 H (2-11) mmol/L BUN 9 (6-24) mg/dL Creatinine 0.45 L (0.51-0.95) mg/dL Est GFR ( Amer) 216.6 (>60) Est GFR (Non-Af Amer) 168.4 (>60) BUN/Creatinine Ratio 20.0 (8-20) Glucose 84 (70-100) mg/dL Lactic Acid 3.2 H* (0.5-2.0) mmol/L Calcium 9.3 (8.6-10.3) mg/dL Magnesium 1.8 L (1.9-2.7) mg/dL Total Bilirubin 0.60 (0.2-1.0) mg/dL AST 277 H (13-39) U/L ALT 143 H (7-52) U/L Alkaline Phosphatase 132 H (34-104) U/L Total Creatine Kinase 45 (10-223) U/L Total Protein 7.4 (6.4-8.9) g/dL Albumin 4.3 (3.2-5.2) g/dL Globulin 3.1 (2-4) g/dL Albumin/Globulin Ratio 1.4 (1-3) TSH 0.81 (0.34-5.60) mcIU/mL Salicylates < 2.50 (<30) mg/dL Acetaminophen < 15 mcg/mL Carbamazepine 4.7 (4.0-12.0) mcg/mL Serum Alcohol 145 H (<10) mg/dL Microbiology and Other Data: Microbiology 02/11/17 11:10 Stool Occult Blood (CONSTANZA) - Final Stool Assess/Plan/Problems-Billing Assessment: Ms. Oneal is a 26 yo female with a PMH of ETOH abuse and pancytopenia who presented to the ED on 02/10/17 with tremors and tachycardia that is likely secondary to alcohol withdrawal. - Patient Problems (1) Alcohol withdrawal Comment: Resolved. Patient anxious to get out of hospital to get more beer. SW consult for outpatient treatment options, patient apparently working to get into [facility] program though we have been unable to confirm this. (2) Pancytopenia Comment: Chronic though worsening. Stool occult negative. Iron < 15. Suspect this is secondary to liver disease and alcohol use and iron deficiency. Patient would benefit from a Hem Onc consult but is planning to leave AMA today. (3) Alcoholic liver damage Comment: Alcoholic liver disease and Hep C. Appreciate GI input. (4) Acute seborrheic dermatitis Comment: With hair loss. No lice noted, though it is difficult to assess scalp, as there is significant layers of dermatitis. Patient encouraged to gently wash hair with shampoo to break up scalp dermatitis. Pharmacy does not have specialty shampoos available. (5) DVT prophylaxis Comment: Low risk (6) Full code status Status and Disposition: Discharge AMA. Paperwork signed.
--- NOTE | 2017-02-13 02:42 | DS ---
HOSPITAL MEDICINE DISCHARGE SUMMARY: DATE OF ADMISSION: 02/10/17 DATE OF DISCHARGE: 02/12/17 PRIMARY CARE PHYSICIAN: None. ATTENDING PHYSICIAN: Alan Brantley MD *(dictation provided by Louise Landry NP ) PRIMARY DIAGNOSIS: Alcohol withdrawal. SECONDARY DIAGNOSES: 1. Severe pancytopenia. 2. Hepatitis C. 3. x2. 4. Alcoholism. 5. Smoking history. MEDICATIONS AT THE TIME OF DISCHARGE: None. HOSPITAL COURSE: Ms. Oneal is a 26-year-old female who presented to the emergency room with tremors and alcohol withdrawal on 02/10/17. Please see the dictated H and P from Dr. Sal Valadez for complete details. In brief, the patient has had reported significant alcohol intake and has significant history of alcoholism and was noted to be tremulous and tachycardic in the emergency department. Ms. Oneal was admitted to the hospital and treated with intravenous fluids and Ativan p.r.n. with this, her symptoms have improved and she only needed 1 dose of medication this morning. During this admission, Ms. Oneal had continuation of her ongoing chronic pancytopenia. Her white blood cell count on 02/12/17 today is 2.0, hemoglobin 6.9, hematocrit 23, and platelet count 63. Ms. Oneal has had consultation with Dr. Sullivan from Hematology back in September 2016. At that time, he speculated that her chronic pancytopenia was due to her alcoholism and there was no evidence of malignancy, but he did recommend that the patient have further followup if her counts remain low after being off alcohol for at least 2 weeks. Ms. Oneal has stated that she jennifer be leaving against medical advice today. She reports she will be leaving hospital to stay with her friend and then following up with [facility] regarding treatment program in [facility]. The patient believes that she is close to getting into this treatment program as looking forward to doing that. She understands that she has severe chronic alcoholism causing severe medical problems including her severe pancytopenia. She does not have a primary care physician and is not sure how she would follow up with one. She does plan to follow up with medical care as part of her treatment program. In the meantime, I have encouraged her to follow up with the [facility] if possible and to return certainly to the hospital should she have any concerning symptoms. DISPOSITION: To stay with a friend, AMA. DIET: Regular. ACTIVITY: As tolerated. FOLLOWUP PLANS: Please follow up at [facility] regarding treatment program both for treatment and for medical care. TIME SPENT: Approximately 60 minutes was spent in the discharge of this patient , more than half of the time was spent with the patient at the bedside reviewing the events leading up to this hospitalization, performing the physical examination, and reviewing my [place] [id number]/CPS #: [id number] JERAMIE
== END 2017-02-12 12:16 | disposition left against medical advice (07) | DRG 894 ==
LOC: ED 19:51 → MEDTELE 22:50
PROVIDERS: ADMIT Hospitalist; ATTEND Internal Medicine
DX: F10.239 Alcohol dependence with withdrawal, unspecified (principal); D61.818 Other pancytopenia; K70.9 Alcoholic liver disease, unspecified; B19.20 Unspecified viral hepatitis C without hepatic coma; F17.210 Nicotine dependence, cigarettes, uncomplicated; F11.90 Opioid use, unspecified, uncomplicated; D64.9 Anemia, unspecified; L21.9 Seborrheic dermatitis, unspecified; Z59.0 Homelessness
CPT/HCPCS: 36415; 71010; 80048; 80053; 80156; 80307; 80320; 80329; 81003; 81015; 82272; 82550; 82607; 82728; 82746; 83540; 83550; 83605; 83615; 83735; 84443; 84702; 85014; 85018; 85025; 85027; 85045; 85060; 86850; 86900; 86901; 87086; 93005; A9270-GY; G0480; J2060; J3411; J3475

== ENCOUNTER 2017-12-29 16:50 | Emergency (ER) | payer OTHER ==
[2017-12-29 17:02] VITALS: BP 136/80
[2017-12-29] MEDS ORDERED: Al Hydrox/Mg Hydrox/Simet LIQ* 30 ML UDC PO ONE (19:34)
[2017-12-29] MEDS ORDERED: Lidocaine 2% VISCOUS* 15 ML UDC PO ONE (19:34)
[2017-12-29 20:18] LABS: Urine Appearance Clear; Urine Blood 2+ (Negative); Urine Color Straw; Urine Ketones Negative (Negative); Urine Protein Negative (Negative); Urine Specific Gravity 1.003 (1.010-1.030); Urine Urobilinogen Negative (Negative)
--- NOTE | 2017-12-29 21:01 | RAD ---
INDICATION: Extreme dizziness. COMPARISON: There are no prior studies available for comparison. TECHNIQUE: Contiguous axial sections of the brain were obtained from the skull base to the vertex without contrast. FINDINGS: The ventricles, cisterns and sulci are enlarged consistent with diffuse atrophy. No significant focal abnormality or mass effect is seen. There is no evidence for hemorrhage. No significant focal osseous abnormality is seen. The visualized portion of the paranasal sinuses and mastoid air cells appear clear. IMPRESSION: 1. NO EVIDENCE FOR ACUTE INTRACRANIAL ABNORMALITY. 2. ATROPHY.
--- NOTE | 2017-12-29 21:08 | RAD ---
INDICATION: Dizziness. COMPARISON: There are no prior studies available for comparison. TECHNIQUE: Dual-energy PA and lateral views of the chest were obtained. FINDINGS: The heart is within normal limits in size. Mediastinal and hilar contours appear within normal limits. The lungs are clear. No pleural effusion is present. IMPRESSION: NO EVIDENCE FOR ACTIVE CARDIOPULMONARY DISEASE.
[2017-12-29 21:46] LABS: INR 0.83 (0.77-1.02)
[2017-12-29 21:55] LABS: Hematocrit 30 % (35-47); Hemoglobin 9.2 g/dl (12.0-16.0); Mean Corpuscular HGB Conc 31 g/dl (31-36); Mean Corpuscular Hemoglobin 21 pg (27-31); Mean Corpuscular Volume 70 fL (80-97); Red Cell Distribution Width 20 % (10.5-15)
[2017-12-29 21:56] LABS: ABS Basophils 0 10^3/ul (0-0.2); ABS Eosinophils 0 10^3/ul (0-0.6); ABS Lymphocytes 1.3 10^3/ul (1.0-4.8); ABS Monocytes 0.1 10^3/ul (0-0.8); ABS Neutrophils 0.6 10^3/ul (1.5-7.7); ABS Nucleated RBC 0 10^3/ul; Eosinophil % 0.4 % (0-6); Lymphocyte % 65.3 % (25-47); Mean Platelet Volume 8 um3 (7.4-10.4); Nucleated Red Blood Cells % 0.2; Platelet Count 56 10^3/ul (150-450)
--- NOTE | 2017-12-29 22:22 | ED ---
[place] Ospina Thomas, scribed for Woodrow Ray on 12/29/17 at 1938 . Dizziness - HPI Summary HPI Summary: The patient is a 27 year old female presenting to the emergency department complaining of dizziness, swollen hands bilaterally, and generalized illness for the last week. The patient additionally complains of shortness of breath. The patient denies chest pain. The patient is a current smoker and drinks daily. - History Of Current Complaint Chief Complaint: EDDizziness Stated Complaint: DIZZINESS/SWOLLEN HANDS Time Seen by Provider: 12/29/17 19:15 Hx Obtained From: Patient Onset/Duration: Still Present Timing: Weeks - 1 Severity Initially: Moderate Severity Currently: Moderate Alleviating Factor(s): Nothing Associated Signs And Symptoms: Positive: SOB, Other: - Swollen hands, generalized illness. Negative: Chest Pain - Allergies/Home Medications Allergies/Adverse Reactions: Allergies Allergy/AdvReac Type Severity Reaction Status Date / Time No Known Allergies Allergy Verified 02/10/17 20:29 PMH/Surg Hx/FS Hx/Imm Hx Endocrine/Hematology History: Reports: Hx Anemia, Other Endocrine/Hematological Disorders - pancytopenia Respiratory History: Reports: Hx Asthma GI History: Reports: Other GI Disorders - Hepatitis C Neurological History: Reports: Hx Headaches, Hx Seizures - r/t etoh detox Psychiatric History: Reports: Hx Anxiety, Hx Substance Abuse - hx heroin abuse - stopped suboxone 12/2015, etoh abuse - Surgical History Surgery Procedure, Year, and Place: x2 Infectious Disease History: No Infectious Disease History: Reports: Hx Hepatitis - HCV Denies: Traveled Outside the [place] in Last 30 Days - Family History Known Family History: Positive: Hypertension Negative: Other - alcohol abuse - Social History Alcohol Use: Daily Alcohol Amount: one liter of vodka per day Hx Substance Use: Yes Substance Use Type: Reports: None Substance Use Comment - Amount & Last Used: former heroin use per pt Hx Tobacco Use: No Smoking Status (MU): Light Every Day Tobacco Smoker Type: Cigarettes Have You Smoked in the Last Year: Yes Review of Systems Negative: Fever Negative: Chest Pain Positive: Shortness Of Breath Positive: Other - swollen hands Neurological: Other - Dizziness All Other Systems Reviewed And Are Negative: Yes Physical Exam - Summary Physical Exam Summary: Appearance: Well appearing, no pain distress Skin: warm, dry, reflects adequate perfusion Head/face: normal Eyes: EOMI, MARY ENT: normal Neck: supple, non-tender Respiratory: CTA, breath sounds present Cardiovascular: RRR, pulses symmetrical Abdomen: non-tender, soft Bowel: present Musculoskeletal: normal, strength/ROM intact Extremities: She has erythematous hands bilaterally. Neuro: normal, sensory motor intact, A&Ox3 Triage Information Reviewed: Yes Vital Signs On Initial Exam: Initial Vitals Temp Pulse Resp BP Pulse Ox 97.3 F 88 18 136/80 99 12/29/17 16:59 12/29/17 16:59 12/29/17 16:59 12/29/17 16:59 12/29/17 16:59 Vital Signs Reviewed: Yes Diagnostics - Vital Signs Vital Signs Temp Pulse Resp BP Pulse Ox 12/29/17 16:59 97.3 F 88 18 136/80 99 - Laboratory Lab Results: Lab Results 12/29/17 12/29/17 12/29/17 Range/Units 19:52 21:20 21:20 WBC 2.0 L (3.5-10.8) 10^3/ul RBC 4.30 (4.0-5.4) 10^6/ul Hgb 9.2 L (12.0-16.0) g/dl Hct 30 L (35-47) % MCV 70 L (80-97) fL MCH 21 L (27-31) pg MCHC 31 (31-36) g/dl RDW 20 H (10.5-15) % Plt Count 56 L (150-450) 10^3/ul MPV 8 (7.4-10.4) um3 Neut % (Auto) 29.0 L (38-83) % Lymph % (Auto) 65.3 H (25-47) % [place] % (Auto) 5.3 (1-9) % Eos % (Auto) 0.4 (0-6) % Baso % (Auto) 0 (0-2) % Absolute Neuts (auto) 0.6 L* (1.5-7.7) 10^3/ul Absolute Lymphs (auto) 1.3 (1.0-4.8) 10^3/ul Absolute Monos (auto) 0.1 (0-0.8) 10^3/ul Absolute Eos (auto) 0 (0-0.6) 10^3/ul Absolute Basos (auto) 0 (0-0.2) 10^3/ul Absolute Nucleated RBC 0 10^3/ul Nucleated RBC % 0.2 Hem Pathologist Commnt Pending INR (Anticoag Therapy) 0.83 (0.77-1.02) APTT 34.0 (26.0-36.3) seconds Sodium (133-145) mmol/L Potassium (3.5-5.0) mmol/L Chloride (101-111) mmol/L Carbon Dioxide (22-32) mmol/L Anion Gap (2-11) mmol/L BUN (6-24) mg/dL Creatinine (0.51-0.95) mg/dL Est GFR ( Amer) (>60) Est GFR (Non-Af Amer) (>60) BUN/Creatinine Ratio (8-20) Glucose (70-100) mg/dL Calcium (8.6-10.3) mg/dL Magnesium (1.9-2.7) mg/dL Total Bilirubin (0.2-1.0) mg/dL AST (13-39) U/L ALT (7-52) U/L Alkaline Phosphatase (34-104) U/L Total Creatine Kinase (10-223) U/L Troponin I (<0.04) ng/mL Total Protein (6.4-8.9) g/dL Albumin (3.2-5.2) g/dL Globulin (2-4) g/dL Albumin/Globulin Ratio (1-3) TSH (0.34-5.60) mcIU/mL Beta HCG, Quant mIU/mL Urine Color Straw Urine Appearance Clear Urine pH 6.0 (5-9) Ur Specific [place] 1.003 L (1.010-1.030) Urine Protein Negative (Negative) Urine Ketones Negative (Negative) Urine Blood 2+ H (Negative) Urine Nitrate Negative (Negative) Urine Bilirubin Negative (Negative) Urine Urobilinogen Negative (Negative) Ur Leukocyte Esterase Negative (Negative) Urine WBC (Auto) Absent (Absent) Urine RBC (Auto) Trace(0-2/hpf) (Absent) Ur Squamous Epith Cells Present H (Absent) Urine Bacteria 1+ H (Absent) Urine Glucose Negative (Negative) 12/29/17 Range/Units 21:20 WBC (3.5-10.8) 10^3/ul RBC (4.0-5.4) 10^6/ul Hgb (12.0-16.0) g/dl Hct (35-47) % MCV (80-97) fL MCH (27-31) pg MCHC (31-36) g/dl RDW (10.5-15) % Plt Count (150-450) 10^3/ul MPV (7.4-10.4) um3 Neut % (Auto) (38-83) % Lymph % (Auto) (25-47) % [place] % (Auto) (1-9) % Eos % (Auto) (0-6) % Baso % (Auto) (0-2) % Absolute Neuts (auto) (1.5-7.7) 10^3/ul Absolute Lymphs (auto) (1.0-4.8) 10^3/ul Absolute Monos (auto) (0-0.8) 10^3/ul Absolute Eos (auto) (0-0.6) 10^3/ul Absolute Basos (auto) (0-0.2) 10^3/ul Absolute Nucleated RBC 10^3/ul Nucleated RBC % Hem Pathologist Commnt INR (Anticoag Therapy) (0.77-1.02) APTT (26.0-36.3) seconds Sodium 137 (133-145) mmol/L Potassium 3.8 (3.5-5.0) mmol/L Chloride 99 L (101-111) mmol/L Carbon Dioxide 27 (22-32) mmol/L Anion Gap 11 (2-11) mmol/L BUN 7 (6-24) mg/dL Creatinine 0.42 L (0.51-0.95) mg/dL Est GFR ( Amer) 232.8 (>60) Est GFR (Non-Af Amer) 181.0 (>60) BUN/Creatinine Ratio 16.7 (8-20) Glucose 86 (70-100) mg/dL Calcium 9.6 (8.6-10.3) mg/dL Magnesium 1.9 (1.9-2.7) mg/dL Total Bilirubin 0.70 (0.2-1.0) mg/dL AST 443 H (13-39) U/L ALT 184 H (7-52) U/L Alkaline Phosphatase 177 H (34-104) U/L Total Creatine Kinase 76 (10-223) U/L Troponin I 0.00 (<0.04) ng/mL Total Protein 8.6 (6.4-8.9) g/dL Albumin 4.4 (3.2-5.2) g/dL Globulin 4.2 H (2-4) g/dL Albumin/Globulin Ratio 1.0 (1-3) TSH 0.64 (0.34-5.60) mcIU/mL Beta HCG, Quant < 0.60 mIU/mL Urine Color Urine Appearance Urine pH (5-9) Ur Specific [place] (1.010-1.030) Urine Protein (Negative) Urine Ketones (Negative) Urine Blood (Negative) Urine Nitrate (Negative) Urine Bilirubin (Negative) Urine Urobilinogen (Negative) Ur Leukocyte Esterase (Negative) Urine WBC (Auto) (Absent) Urine RBC (Auto) (Absent) Ur Squamous Epith Cells (Absent) Urine Bacteria (Absent) Urine Glucose (Negative) Result Diagrams: 12/29/17 21:20 12/29/17 21:20 Lab Statement: Any lab studies that have been ordered have been reviewed, and results considered in the medical decision making process. - Radiology CXR Xray Interpretation: No Acute Changes - NO EVIDENCE FOR ACUTE CARDIOPULMONARY DISEASE. Dr. Ray has reviewed this report. Radiology Interpretation Completed By: Radiologist - CT CT Brain CT Interpretation: No Acute Changes - 1. NO EVIDENCE FOR ACUTE INTRACRANIAL ABNORMALITY. 2. ATROPHY. Dr. Ray has reviewed this report. CT Interpretation Completed By: Radiologist - EKG 18:43 Cardiac Rate: NL EKG Rhythm: Sinus Rhythm - at 69 BPM EKG Interpretation: No acute changes. Dizzy Course/Dx - Course Assessment/Plan: The patient is a 27 year old female presenting to the emergency department complaining of dizziness, swollen hands bilaterally, and generalized illness for the last week. In the ED course the patient was given Maalox and viscous lidocaine. Bloodwork and urinalysis were obtained. EKG shows sinus rhythm with no acute changes. CT Brain shows 1. NO EVIDENCE FOR ACUTE INTRACRANIAL ABNORMALITY. 2. ATROPHY. CXR shows NO EVIDENCE FOR ACUTE CARDIOPULMONARY DISEASE. The patient is diagnosed with pancytopenia, alcohol abuse, and hepatitis C. I discussed the case with Dr. Seymour, hospitalist, and she states there are no indications for admission. The patient will be follow up with her primary care physician in the next three days. - Diagnoses Differential Diagnosis/HQI/PQRI: Anxiety, Labyrinthitis, Vasovagal Reaction, Other - vertigo/dizziness Provider Diagnoses: Pancytopenia, Hepatitis C, Alcohol abuse - Provider Notifications Discussed Care Of Patient With: Hilary Seymour Time Discussed With Above Provider: 22:13 Instructed by Provider To: Other - I discussed the case with Dr. Seymour, hospitalist, and she states there are no indications for admission at this time. Discharge - Discharge Plan Condition: Stable Disposition: HOME Patient Education Materials: Abuse of Alcohol (ED), Pancytopenia (DC) Referrals: Sonu Paige NP [Primary Care Provider] - 3 Days Additional Instructions: Follow up with Sonu Paige in the next three days. Return to the emergency department for any new or worsening symptoms. The documentation as recorded by the [place] diaz Thomas accurately reflects the service I personally performed and the decisions made by , Woodrow Ray.
== END 2017-12-29 22:23 | disposition home or self-care (01) ==
LOC: ED 16:50
DX: D61.818 Other pancytopenia (principal); B19.20 Unspecified viral hepatitis C without hepatic coma; F10.10 Alcohol abuse, uncomplicated; R06.02 Shortness of breath; R42 Dizziness and giddiness; F17.210 Nicotine dependence, cigarettes, uncomplicated
CPT/HCPCS: 36415; 70450; 71046; 80053; 81003; 81015; 82550; 83735; 84443; 84484; 84702; 85025; 85060; 85610; 85730; 87077; 87086; 87186; 93005; 99282

== ENCOUNTER 2018-02-08 23:28 | Inpatient (IN) | payer OTHER ==
[2018-02-09] MEDS ORDERED: Ibuprofen TAB* 600 MG PO ONE (00:11)
[2018-02-09] MEDS ORDERED: Vancomycin(*) 1,000 MG in NS 0.9% 250 ML* 250 ML IVPB ONE (00:24)
[2018-02-09] MEDS ORDERED: Piperacillin/Tazobac ADVAN(*) 3.375 GM in NS 0.9% 100 ML* 100 ML IVPB ONE (00:24)
[2018-02-09] MEDS ORDERED: NS 0.9% 100 ML* 100 ML ONE (00:48)
[2018-02-09] MEDS ORDERED: Ibuprofen PED LIQ 100 MG/5 ML UDC ONE (01:18)
[2018-02-09] MEDS: NS 0.9% 1000 ML* 1,500 ML IV ONE ×2 (02:39→03:46)
[2018-02-09 02:50] LABS: INR 1.15 (0.77-1.02)
[2018-02-09 02:59] LABS: EGFR Non-African American 107.4 (>60)
[2018-02-09 03:00] LABS: Hematocrit 20 % (35-47); Hemoglobin 6.4 g/dl (12.0-16.0); Mean Corpuscular HGB Conc 32 g/dl (31-36); Mean Corpuscular Hemoglobin 22 pg (27-31); Mean Corpuscular Volume 69 fL (80-97); Mean Platelet Volume 9 um3 (7.4-10.4); Platelet Count 68 10^3/ul (150-450); Red Blood Count 2.93 10^6/ul (4.0-5.4); Red Cell Distribution Width 20 % (10.5-15)
[2018-02-09] MEDS ORDERED: Piperacillin/Tazobac ADVAN(*) 3.375 GM in NS 0.9% 50 ML* 50 ML IVPB ONE (03:00)
[2018-02-09 03:13] LABS: Monocytes % 7 % (0-7)
[2018-02-09] MEDS ORDERED: LORazepam INJ* 2 MG/ML 1 ML VIAL IV PUSH ONE (03:25)
[2018-02-09] MEDS ORDERED: MEROPENEM IV ONE (03:40)
[2018-02-09] MEDS ORDERED: Meropenem 500MG PREMIX(*) 500 MG/50 ML BAG IV ONE (04:00)
--- NOTE | 2018-02-09 04:43 | ED ---
Marii Ospina Julia, scribed for Elfar, Abdul, MD on 02/09/18 at 0004 . Influenza-Like Illness - HPI Summary HPI Summary: This patient is a 27 year old F BIBA to [facility] accompanied by her with a chief complaint of influenza like symptoms for the best five days. Patient reports dizziness, cough, fever, n/v/d, fatigue, sore throat beginning three days ago. Patient denies bloody diarrhea. The patient rates the pain 10/10 in severity. Patient has history of hepatitis C, alcoholism since the age of 16 and a history of IV drug use. - History of Current Complaint Chief Complaint: EDFever Time Seen by Provider: 02/08/18 23:48 Hx Obtained From: Patient Onset/Duration: Lasting Days, Still Present Associated Signs & Symptoms: Fever, Cough, Sore Throat, Vomiting, Diarrhea - Allergy/Home Medications Allergies/Adverse Reactions: Allergies Allergy/AdvReac Type Severity Reaction Status Date / Time No Known Allergies Allergy Verified 02/08/18 23:57 Home Medications: Home Medications NK [No Home Medications Reported] 02/09/18 [History Confirmed 02/09/18] PMH/Surg Hx/FS Hx/Imm Hx Endocrine/Hematology History: Reports: Hx Anemia, Other Endocrine/Hematological Disorders - pancytopenia Respiratory History: Reports: Hx Asthma GI History: Reports: Other GI Disorders - Hepatitis C Neurological History: Reports: Hx Headaches, Hx Seizures - r/t etoh detox Psychiatric History: Reports: Hx Anxiety, Hx Substance Abuse - hx heroin abuse - stopped suboxone 12/2015, etoh abuse - Surgical History Surgery Procedure, Year, and Place: x2 Infectious Disease History: Yes Infectious Disease History: Reports: Hx Hepatitis - HCV Denies: Traveled Outside the [place] in Last 30 Days - Family History Known Family History: Positive: Hypertension Negative: Other - alcohol abuse - Social History Alcohol Use: Daily Alcohol Amount: one liter of vodka per day Hx Substance Use: Yes Substance Use Type: Reports: None Substance Use Comment - Amount & Last Used: former heroin use per pt Hx Tobacco Use: No Smoking Status (MU): Light Every Day Tobacco Smoker Type: Cigarettes Have You Smoked in the Last Year: Yes Review of Systems Positive: Fever Positive: Sore Throat Positive: Cough Gastrointestinal: Negative - bloody stool, Other - hematemsis Positive: Vomiting, Diarrhea, Nausea, Other All Other Systems Reviewed And Are Negative: Yes Physical Exam - Summary Physical Exam Summary: VITAL SIGNS: Reviewed. GENERAL: Patient is a well-developed and nourished female who is lying comfortable in the stretcher. Patient is not in any acute respiratory distress. HEAD AND FACE: No signs of trauma. No ecchymosis, hematomas or skull depressions. No sinus tenderness. EYES: PERRLA, EOMI x 2, No injected conjunctiva, no nystagmus. Scleral icterus EARS: Hearing grossly intact. Ear canals and tympanic membranes are within normal limits. MOUTH: Oropharynx within normal limits. NECK: Supple, trachea is midline, no adenopathy, no JVD, no carotid bruit, no c- spine tenderness, neck with full ROM. Pharyngeal erythema with questionable exudates. CHEST: Symmetric, no tenderness at palpation LUNGS: Clear to auscultation bilaterally. No wheezing or crackles. CVS: Regular rate and rhythm, S1 and S2 present, no murmurs or gallops appreciated. ABDOMEN: Soft, non-tender. No signs of distention. No rebound no guarding, and no masses palpated. Bowel sounds are normal. EXTREMITIES: FROM in all major joints, no edema, no cyanosis or clubbing. NEURO: Alert and oriented x 3. No acute neurological deficits. Speech is normal and follows commands. SKIN: Dry and warm Triage Information Reviewed: Yes Vital Signs On Initial Exam: Initial Vitals Temp Pulse Resp BP Pulse Ox 100.7 F 126 16 109/65 95 02/08/18 23:40 02/08/18 23:40 02/08/18 23:40 02/08/18 23:40 02/08/18 23:40 Vital Signs Reviewed: Yes Diagnostics - Vital Signs Vital Signs Temp Pulse Resp BP Pulse Ox 02/08/18 23:56 124 94 02/08/18 23:54 109/65 02/08/18 23:40 100.7 F 126 16 109/65 95 - Laboratory Lab Results: Lab Results 02/09/18 02/09/18 02/09/18 Range/Units 01:27 02:20 02:20 WBC (3.5-10.8) 10^3/ul RBC (4.0-5.4) 10^6/ul Hgb (12.0-16.0) g/dl Hct (35-47) % MCV (80-97) fL MCH (27-31) pg MCHC (31-36) g/dl RDW (10.5-15) % Plt Count (150-450) 10^3/ul MPV (7.4-10.4) um3 Neut % (Auto) Lymph % (Auto) [place] % (Auto) Eos % (Auto) Baso % (Auto) Absolute Neuts (auto) Absolute Lymphs (auto) Absolute Monos (auto) Absolute Eos (auto) Absolute Basos (auto) Absolute Nucleated RBC Immature Gran % (0-9) % Neutrophils % (38-83) % Band Neutrophils % (0-8) % Lymphocytes % (25-47) % Monocytes % (0-7) % Nucleated RBC % Toxic Granulation Normal RBC Morphology Hypochromasia Microcytosis Target Cells INR (Anticoag Therapy) 1.15 H (0.77-1.02) APTT 28.1 (26.0-36.3) seconds Sodium 130 L (133-145) mmol/L Potassium 3.0 L (3.5-5.0) mmol/L Chloride 98 L (101-111) mmol/L Carbon Dioxide 22 (22-32) mmol/L Anion Gap 10 (2-11) mmol/L BUN 11 (6-24) mg/dL Creatinine 0.66 (0.51-0.95) mg/dL Est GFR ( Amer) 138.2 (>60) Est GFR (Non-Af Amer) 107.4 (>60) BUN/Creatinine Ratio 16.7 (8-20) Glucose 112 H (70-100) mg/dL Lactic Acid (0.5-2.0) mmol/L Calcium 7.9 L (8.6-10.3) mg/dL Total Bilirubin 4.20 H (0.2-1.0) mg/dL AST 144 H (13-39) U/L ALT 84 H (7-52) U/L Alkaline Phosphatase 696 H (34-104) U/L C-Reactive Protein 170.47 H (< 5.00) mg/L Total Protein 6.5 (6.4-8.9) g/dL Albumin 2.2 L (3.2-5.2) g/dL Globulin 4.3 H (2-4) g/dL Albumin/Globulin Ratio 0.5 L (1-3) Beta HCG, Quant 2.19 mIU/mL Serum Alcohol 40 H (<10) mg/dL Influenza A (Rapid) Negative (Negative) Influenza B (Rapid) Negative (Negative) Group A Strep Rapid (Negative) 02/09/18 02/09/18 02/09/18 Range/Units 02:20 02:20 02:58 WBC 15.0 H (3.5-10.8) 10^3/ul RBC 2.93 L (4.0-5.4) 10^6/ul Hgb 6.4 L* (12.0-16.0) g/dl Hct 20 L (35-47) % MCV 69 L (80-97) fL MCH 22 L (27-31) pg MCHC 32 (31-36) g/dl RDW 20 H (10.5-15) % Plt Count 68 L (150-450) 10^3/ul MPV 9 (7.4-10.4) um3 Neut % (Auto) Not Reportable Lymph % (Auto) Not Reportable [place] % (Auto) Not Reportable Eos % (Auto) Not Reportable Baso % (Auto) Not Reportable Absolute Neuts (auto) Not Reportable Absolute Lymphs (auto) Not Reportable Absolute Monos (auto) Not Reportable Absolute Eos (auto) Not Reportable Absolute Basos (auto) Not Reportable Absolute Nucleated RBC Not Reportable Immature Gran % 2 (0-9) % Neutrophils % 85 H (38-83) % Band Neutrophils % 2 (0-8) % Lymphocytes % 6 L (25-47) % Monocytes % 7 (0-7) % Nucleated RBC % Not Reportable Toxic Granulation 1+ Normal RBC Morphology Not Reportable Hypochromasia 2+ Microcytosis 1+ Target Cells 1+ INR (Anticoag Therapy) (0.77-1.02) APTT (26.0-36.3) seconds Sodium (133-145) mmol/L Potassium (3.5-5.0) mmol/L Chloride (101-111) mmol/L Carbon Dioxide (22-32) mmol/L Anion Gap (2-11) mmol/L BUN (6-24) mg/dL Creatinine (0.51-0.95) mg/dL Est GFR ( Amer) (>60) Est GFR (Non-Af Amer) (>60) BUN/Creatinine Ratio (8-20) Glucose (70-100) mg/dL Lactic Acid 1.4 (0.5-2.0) mmol/L Calcium (8.6-10.3) mg/dL Total Bilirubin (0.2-1.0) mg/dL AST (13-39) U/L ALT (7-52) U/L Alkaline Phosphatase (34-104) U/L C-Reactive Protein (< 5.00) mg/L Total Protein (6.4-8.9) g/dL Albumin (3.2-5.2) g/dL Globulin (2-4) g/dL Albumin/Globulin Ratio (1-3) Beta HCG, Quant mIU/mL Serum Alcohol (<10) mg/dL Influenza A (Rapid) (Negative) Influenza B (Rapid) (Negative) Group A Strep Rapid Negative (Negative) Result Diagrams: 02/09/18 02:20 02/09/18 02:20 Lab Statement: Any lab studies that have been ordered have been reviewed, and results considered in the medical decision making process. - Radiology CXR Radiology Interpretation Completed By: ED Physician - No acute process. - Additional Comments Diagnostic Additional Comments: An abdominal US reveals, as per radiologist: Splenomegaly with echogenicity suggesting diffuse fat infiltration. ED Physician has reviewed this report. Flu Symptom Course/Dx - Course Course Of Treatment: Patient presents with influenza like symptoms for the best five days. Patient reports dizziness, cough, fever, n/v/d, fatigue, sore throat , and hematemesis beginning three days ago. Patient has history of hepatitis C , alcoholism and IV drug use. Patient has fever and RUQ abdominal pain. US is consistent with cholangitis. Lab results reveal Hgb of 6.4. Patient is given Ativan, Meropenem, and Motrin. - Diagnoses Provider Diagnoses: Fever, Anemia, possible ascending cholangitis - Physician Notifications Discussed Care Of Patient With: Sal Valadez - hospitalist Time Discussed With Above Provider: 03:09 Instructed by Provider To: Admit As Inpatient Discharge - Discharge Plan Condition: Fair Disposition: ADMITTED TO [facility] Referrals: Sonu Paige, JANE [Primary Care Provider] - The documentation as recorded by the Marii diaz Julia accurately reflects the service I personally performed and the decisions made by me, Luther Blackwood MD.
[2018-02-09] MEDS ORDERED: Albuterol 2.5 MG/3 ML NEB.SOL* (0.083%) INH PRN (05:15)
[2018-02-09] MEDS ORDERED: CMCS: Melatonin (NF) 3 MG TAB PO PRN (05:15)
[2018-02-09] MEDS ORDERED: Morphine INJ* 2 MG/ML 1 ML CARPUJECT IV PRN (05:15)
--- NOTE | 2018-02-09 05:35 | HP ---
H&P (Free Text) History and Physical: PCP: JIM Paige NP Date/Time: 02/09/2018 0500 CC: N/V/D & abdominal pain HPI: Ms Oneal is a 27YO homeless female HX of alcoholism who presents reporting 4-5 days of progressive RUQ abdominal pain associated with N/V/D, F/C , & sweats. She reports occasional black stools and an episode of black emesis ~ 4 days ago. She denies the routine use of aspirin, ibuprofen, or naproxen. She states she has not had any alcohol today and only 3 beers yesterday which is inconsistent with her current blood alcohol level of 40. She otherwise denies chest pain, SOB, cough, congestion, known sick contacts, or other issues. PMedHx alcoholism Ambulatory Orders NK [No Home Medications Reported] 02/09/18 Allergies No Known Allergies Allergy (Verified 02/08/18 23:57) PSurgHx x2 SocHx: 1/4PPD cigarettes, frequent alcohol, denies recreational drugs; [facility]; full code status FamHx: negative per patient ROS: as above, otherwise reviewed and all were negative vitals: Vital Signs Temp 38.2 C 02/08/18 23:40 Pulse 92 02/09/18 05:00 Resp 16 02/09/18 03:34 BP 110/67 02/09/18 05:00 Pulse Ox 98 02/09/18 05:00 Intake & Output 02/08/18 02/08/18 02/09/18 11:59 23:59 11:59 Intake Total 3100 Balance 3100 Weight 46.72 kg Intake: IV Fluids 3100 Constitutional: NAD, normally developed, thin white female HEENM: atraumatic; sclera/conjunctiva: mildly icteric/clear; hearing: intact; oropharynx: clear, mucosa tacky Neck: soft tissue: no nuchal rigidity; thyroid: normal Pulmonary: clear to auscultation bilaterally, good aeration, no accessory muscle use CV: RR/RR, normal S1S2, 2/6 ejection murmur, no carotid bruit, no jugular venous distention, 2+ B DP/PT, no edema Abdominal: soft, mildly distended, moderately diffusely tender worst in the RUQ , no rebound/guarding/rigidity, normoactive bowel sounds, no costovertebral angle tenderness Musculoskeletal: general: grossly intact, no tenderness to palpation Integumental: no jaundice, normal appearance and texture of exposed skin Psychiatric orientation: AA&O to PPS affect: flat mood: unpleasant eye contact: poor content: unreliable responses: timely insight: poor Testing: Lab Results 02/09/18 02/09/18 02/09/18 Range/Units 01:27 02:20 02:20 WBC (3.5-10.8) 10^3/ul RBC (4.0-5.4) 10^6/ul Hgb (12.0-16.0) g/dl Hct (35-47) % MCV (80-97) fL MCH (27-31) pg MCHC (31-36) g/dl RDW (10.5-15) % Plt Count (150-450) 10^3/ul MPV (7.4-10.4) um3 Neut % (Auto) Lymph % (Auto) [place] % (Auto) Eos % (Auto) Baso % (Auto) Absolute Neuts (auto) Absolute Lymphs (auto) Absolute Monos (auto) Absolute Eos (auto) Absolute Basos (auto) Absolute Nucleated RBC Immature Gran % (0-9) % Neutrophils % (38-83) % Band Neutrophils % (0-8) % Lymphocytes % (25-47) % Monocytes % (0-7) % Nucleated RBC % Toxic Granulation Normal RBC Morphology Hypochromasia Microcytosis Target Cells INR (Anticoag Therapy) 1.15 H (0.77-1.02) APTT 28.1 (26.0-36.3) seconds Sodium 130 L (133-145) mmol/L Potassium 3.0 L (3.5-5.0) mmol/L Chloride 98 L (101-111) mmol/L Carbon Dioxide 22 (22-32) mmol/L Anion Gap 10 (2-11) mmol/L BUN 11 (6-24) mg/dL Creatinine 0.66 (0.51-0.95) mg/dL Est GFR ( Amer) 138.2 (>60) Est GFR (Non-Af Amer) 107.4 (>60) BUN/Creatinine Ratio 16.7 (8-20) Glucose 112 H (70-100) mg/dL Lactic Acid (0.5-2.0) mmol/L Calcium 7.9 L (8.6-10.3) mg/dL Total Bilirubin 4.20 H (0.2-1.0) mg/dL AST 144 H (13-39) U/L ALT 84 H (7-52) U/L Alkaline Phosphatase 696 H (34-104) U/L C-Reactive Protein 170.47 H (< 5.00) mg/L Total Protein 6.5 (6.4-8.9) g/dL Albumin 2.2 L (3.2-5.2) g/dL Globulin 4.3 H (2-4) g/dL Albumin/Globulin Ratio 0.5 L (1-3) Beta HCG, Quant 2.19 mIU/mL Serum Alcohol 40 H (<10) mg/dL Influenza A (Rapid) Negative (Negative) Influenza B (Rapid) Negative (Negative) Group A Strep Rapid (Negative) Blood Type Antibody Screen Crossmatch 02/09/18 02/09/18 02/09/18 Range/Units 02:20 02:20 02:20 WBC 15.0 H (3.5-10.8) 10^3/ul RBC 2.93 L (4.0-5.4) 10^6/ul Hgb 6.4 L* (12.0-16.0) g/dl Hct 20 L (35-47) % MCV 69 L (80-97) fL MCH 22 L (27-31) pg MCHC 32 (31-36) g/dl RDW 20 H (10.5-15) % Plt Count 68 L (150-450) 10^3/ul MPV 9 (7.4-10.4) um3 Neut % (Auto) Not Reportable Lymph % (Auto) Not Reportable [place] % (Auto) Not Reportable Eos % (Auto) Not Reportable Baso % (Auto) Not Reportable Absolute Neuts (auto) Not Reportable Absolute Lymphs (auto) Not Reportable Absolute Monos (auto) Not Reportable Absolute Eos (auto) Not Reportable Absolute Basos (auto) Not Reportable Absolute Nucleated RBC Not Reportable Immature Gran % 2 (0-9) % Neutrophils % 85 H (38-83) % Band Neutrophils % 2 (0-8) % Lymphocytes % 6 L (25-47) % Monocytes % 7 (0-7) % Nucleated RBC % Not Reportable Toxic Granulation 1+ Normal RBC Morphology Not Reportable Hypochromasia 2+ Microcytosis 1+ Target Cells 1+ INR (Anticoag Therapy) (0.77-1.02) APTT (26.0-36.3) seconds Sodium (133-145) mmol/L Potassium (3.5-5.0) mmol/L Chloride (101-111) mmol/L Carbon Dioxide (22-32) mmol/L Anion Gap (2-11) mmol/L BUN (6-24) mg/dL Creatinine (0.51-0.95) mg/dL Est GFR ( Amer) (>60) Est GFR (Non-Af Amer) (>60) BUN/Creatinine Ratio (8-20) Glucose (70-100) mg/dL Lactic Acid 1.4 (0.5-2.0) mmol/L Calcium (8.6-10.3) mg/dL Total Bilirubin (0.2-1.0) mg/dL AST (13-39) U/L ALT (7-52) U/L Alkaline Phosphatase (34-104) U/L C-Reactive Protein (< 5.00) mg/L Total Protein (6.4-8.9) g/dL Albumin (3.2-5.2) g/dL Globulin (2-4) g/dL Albumin/Globulin Ratio (1-3) Beta HCG, Quant mIU/mL Serum Alcohol (<10) mg/dL Influenza A (Rapid) (Negative) Influenza B (Rapid) (Negative) Group A Strep Rapid (Negative) Blood Type B Positive Antibody Screen Negative Crossmatch See Detail 02/09/18 Range/Units 02:58 WBC (3.5-10.8) 10^3/ul RBC (4.0-5.4) 10^6/ul Hgb (12.0-16.0) g/dl Hct (35-47) % MCV (80-97) fL MCH (27-31) pg MCHC (31-36) g/dl RDW (10.5-15) % Plt Count (150-450) 10^3/ul MPV (7.4-10.4) um3 Neut % (Auto) Lymph % (Auto) [place] % (Auto) Eos % (Auto) Baso % (Auto) Absolute Neuts (auto) Absolute Lymphs (auto) Absolute Monos (auto) Absolute Eos (auto) Absolute Basos (auto) Absolute Nucleated RBC Immature Gran % (0-9) % Neutrophils % (38-83) % Band Neutrophils % (0-8) % Lymphocytes % (25-47) % Monocytes % (0-7) % Nucleated RBC % Toxic Granulation Normal RBC Morphology Hypochromasia Microcytosis Target Cells INR (Anticoag Therapy) (0.77-1.02) APTT (26.0-36.3) seconds Sodium (133-145) mmol/L Potassium (3.5-5.0) mmol/L Chloride (101-111) mmol/L Carbon Dioxide (22-32) mmol/L Anion Gap (2-11) mmol/L BUN (6-24) mg/dL Creatinine (0.51-0.95) mg/dL Est GFR ( Amer) (>60) Est GFR (Non-Af Amer) (>60) BUN/Creatinine Ratio (8-20) Glucose (70-100) mg/dL Lactic Acid (0.5-2.0) mmol/L Calcium (8.6-10.3) mg/dL Total Bilirubin (0.2-1.0) mg/dL AST (13-39) U/L ALT (7-52) U/L Alkaline Phosphatase (34-104) U/L C-Reactive Protein (< 5.00) mg/L Total Protein (6.4-8.9) g/dL Albumin (3.2-5.2) g/dL Globulin (2-4) g/dL Albumin/Globulin Ratio (1-3) Beta HCG, Quant mIU/mL Serum Alcohol (<10) mg/dL Influenza A (Rapid) (Negative) Influenza B (Rapid) (Negative) Group A Strep Rapid Negative (Negative) Blood Type Antibody Screen Crossmatch CXR, personally reviewed: no acute process US RUQ: FINDINGS: Liver is mildly enlarged measuring 20cm in length. Liver is echogenic suggesting diffuse fatty infiltration. There is normal vascular activity in the liver. Ther is echogenic material within the dependent gallbladder. There is no gallbladder wall thickening. The chief cardiopulmonary technologist indicates the absence of a Moreno Sign. Common bile duct is 4mm which is normal. Right kidney appears normal. Pancreas appears normal. The aorta and inferior vena cava appear normal. Impression: 27YO alcoholic female presenting with abdominal pain, N/V/D, F/C, & sweats of 4-5 days duration; ED work up is most consistent with acute alcoholic hepatitis, less likely ascending cholangiitis DIAGNOSIS & PLAN Primary abdominal pain, N/V/D, F/C, & sweats w/ elevated LFTs/bili : MRCP in AM : NPO : pipercillin/tazobactam : IVFs : blood CXs : pain control progressive microcytic anemia : suspect chronic blood loss from alcoholic gastritis : transfuse 2 units pRBCs : trend H&H : obtain stool for occult blood : consider GI consult in AM Secondary alcoholism : foster care social worker consult Admission Rational: inpatient for acutely ill young female not anticipated to be adequately improved w/i 48h to allow for discharge DVTp: NORBERTO Code Status: full
[2018-02-09] MEDS ORDERED: Piperacillin/Tazobac ADVAN(*) 3.375 GM in NS 0.9% 100 ML* 100 ML IVPB SCH (06:00)
[2018-02-09] MEDS ORDERED: Pantoprazole IV* 40 MG IV ONE (06:45)
[2018-02-09] MEDS ORDERED: Piperacillin/Tazobactam 13.5 GM IV 24 hour continuous infusion IVPB SCH ×2 (08:00)
--- NOTE | 2018-02-09 08:16 | RAD ---
INDICATION: Jaundice COMPARISON: December 28, 2015 TECHNIQUE: Longitudinal and transverse scans of the right upper quadrant were obtained. Doppler interrogation of the hepatic and portal venous system was performed. FINDINGS: Liver: There is hepatomegaly with hepatic steatosis. There are no masses . The liver measures 19.9 cm in cephalocaudal dimension. Vessels: There is normal hepatic and portal venous flow. Bile ducts: There is no evidence of intrahepatic or extrahepatic ductal dilatation. The common duct measures 0.4 cm. Gallbladder: There is gallbladder gravel or a small amount of sludge. There is no thickening gallbladder wall or pericholecystic fluid. Pancreas: The visualized pancreas appears normal Right kidney: The right kidney is normal in size and echogenicity. There are no masses or calculi. There is no evidence of hydronephrosis. The right kidney measures 12.1 x 5.0 x 6.3 cm. IVC and aorta: The aorta and superior vena cava appear normal. Fluid: There is no ascites. Other: None. IMPRESSION: GALLBLADDER SLUDGE OR GRAVEL. HEPATOMEGALY WITH HEPATIC STEATOSIS.
--- NOTE | 2018-02-09 08:22 | RAD ---
INDICATION: Fever COMPARISON: December 29, 2017 TECHNIQUE: An AP portable view obtained at 0325 hours is submitted. FINDINGS: Bones/Soft Tissues: There are no acute bony findings. Cardiomediastinal: The cardiomediastinal silhouette is normal. Lungs: There are no infiltrates. Pleura: There are no pleural effusions. Other: None IMPRESSION: NO ACTIVE DISEASE.
[2018-02-09] MEDS: Pantoprazole IV* 80 MG in NS 0.9% 250 ML* 250 ML IVPB SCH ×2 (08:45→22:16)
[2018-02-09] MEDS ORDERED: Pantoprazole IV* 40 MG IV SCH (09:00)
[2018-02-09] MEDS: NS 0.9% 1000 ML* 1,000 ML IV SCH ×2 (09:00→17:36)
[2018-02-09] MEDS ORDERED: Thiamine IV* 100 MG/ML 2 ML VIAL IV ONE (09:58)
[2018-02-09] MEDS ORDERED: KCL 20 MEQ/100 ML IVPREMIX* 20 MEQ/100 ML BAG IV SCH (10:00)
[2018-02-09] MEDS: Ondansetron INJ* 2 MG/ML VIAL IV PRN (10:14)
--- NOTE | 2018-02-09 10:21 | PN ---
Subjective Date of Service: 02/09/18 Interval History: Pt c/o epigastric pain and N/V x 2 weeks now. Hematemesis with bright red blood 2 days ago. Has had loose BM's past several days, but denies melena, BRBPR. c/o epigastric "soreness" for several days Objective Active Medications: Albuterol (Ventolin 2.5 Mg/3 Ml Neb.Jo*) 2.5 mg INH Q2H PRN PRN Reason: SOB/WHEEZING Folic Acid (Folic Acid Iv 1 Mg*) 1 mg IV ONCE ONE Stop: 02/09/18 12:01 Folic Acid (Folvite Tab*) 1 mg PO DAILY [facility] Sodium Chloride (Ns 0.9% 1000 Ml*) 1,000 mls @ 125 mls/hr IV PER RATE [facility] Last Admin: 02/09/18 09:00 Dose: 125 mls/hr Pantoprazole Sodium 80 mg/ (Sodium Chloride) 250 mls @ 25 mls/hr IVPB Q10H [facility] Last Admin: 02/09/18 08:45 Dose: 25 mls/hr Piperacillin Sod/Tazobactam (Sod 3.375 gm/ Sodium Chloride) 50 mls @ 100 mls/ hr IVPB Q6H [facility] Potassium Chloride 40 meq/ (Sodium Chloride) 270 mls @ 67.5 mls/hr IVPB ONCE ONE Stop: 02/09/18 14:59 Lorazepam (Ativan Inj*) 0 - 6 mg IM .[facility] PROTOCOL LUC PRN Reason: Protocol Melatonin (Melatonin (Nf)) 3 mg PO BEDTIME PRN; Protocol PRN Reason: Sleep Morphine Sulfate (Morphine Inj (Syringe)*) 2 mg IV Q4H PRN PRN Reason: PAIN - MILD Ondansetron HCl (Zofran Inj*) 4 mg IV Q6H PRN PRN Reason: NAUSEA Thiamine HCl (Vitamin B-1 Tab*) 100 mg PO DAILY [facility] Vital Signs - 8 hr 02/09/18 02/09/18 02/09/18 05:30 05:46 06:00 Temperature Pulse Rate 93 96 Respiratory Rate Blood Pressure 117/69 116/71 (mmHg) O2 Sat by Pulse 96 95 Oximetry 02/09/18 02/09/18 02/09/18 06:04 06:05 07:00 Temperature 99.5 F Pulse Rate 105 98 89 Respiratory 16 Rate Blood Pressure 116/71 115/83 (mmHg) O2 Sat by Pulse 96 99 92 Oximetry 02/09/18 08:00 Temperature 99.2 F Pulse Rate 93 Respiratory 16 Rate Blood Pressure 121/76 (mmHg) O2 Sat by Pulse 100 Oximetry Oxygen Devices in Use Now: None Appearance: 27 yo F in NAD, AAOx3 Eyes: PERRLA Ears/Nose/Mouth/Throat: NL Teeth, Lips, Gums, - - mucosa dry Neck: NL Appearance and Movements; NL JVP, Trachea Midline Respiratory: Clear to Auscultation Cardiovascular: NL Sounds; No Murmurs; No JVD, RRR Abdominal: - - tender in epigastrium, no rebound, no guarding, BS+ Extremities: No Clubbing, Cyanosis, - - trace pedal edema b/l Skin: No Nodules or Sclerosis Neurological: Alert and Oriented x 3, NL Muscle Strength and Tone Result Diagrams: 02/09/18 02:20 02/09/18 02:20 Additional Lab and Data: Lab Results 02/09/18 02/09/18 02/09/18 Range/Units 01:27 02:20 02:20 WBC (3.5-10.8) 10^3/ul RBC (4.0-5.4) 10^6/ul Hgb (12.0-16.0) g/dl Hct (35-47) % MCV (80-97) fL MCH (27-31) pg MCHC (31-36) g/dl RDW (10.5-15) % Plt Count (150-450) 10^3/ul MPV (7.4-10.4) um3 Neut % (Auto) Lymph % (Auto) [place] % (Auto) Eos % (Auto) Baso % (Auto) Absolute Neuts (auto) Absolute Lymphs (auto) Absolute Monos (auto) Absolute Eos (auto) Absolute Basos (auto) Absolute Nucleated RBC Immature Gran % (0-9) % Neutrophils % (38-83) % Band Neutrophils % (0-8) % Lymphocytes % (25-47) % Monocytes % (0-7) % Nucleated RBC % Toxic Granulation Normal RBC Morphology Hypochromasia Microcytosis Target Cells INR (Anticoag Therapy) 1.15 H (0.77-1.02) APTT 28.1 (26.0-36.3) seconds Sodium 130 L (133-145) mmol/L Potassium 3.0 L (3.5-5.0) mmol/L Chloride 98 L (101-111) mmol/L Carbon Dioxide 22 (22-32) mmol/L Anion Gap 10 (2-11) mmol/L BUN 11 (6-24) mg/dL Creatinine 0.66 (0.51-0.95) mg/dL Est GFR ( Amer) 138.2 (>60) Est GFR (Non-Af Amer) 107.4 (>60) BUN/Creatinine Ratio 16.7 (8-20) Glucose 112 H (70-100) mg/dL Lactic Acid (0.5-2.0) mmol/L Calcium 7.9 L (8.6-10.3) mg/dL Total Bilirubin 4.20 H (0.2-1.0) mg/dL AST 144 H (13-39) U/L ALT 84 H (7-52) U/L Alkaline Phosphatase 696 H (34-104) U/L C-Reactive Protein 170.47 H (< 5.00) mg/L Total Protein 6.5 (6.4-8.9) g/dL Albumin 2.2 L (3.2-5.2) g/dL Globulin 4.3 H (2-4) g/dL Albumin/Globulin Ratio 0.5 L (1-3) Beta HCG, Quant 2.19 mIU/mL Serum Alcohol 40 H (<10) mg/dL Influenza A (Rapid) Negative (Negative) Influenza B (Rapid) Negative (Negative) Group A Strep Rapid (Negative) 02/09/18 02/09/18 02/09/18 Range/Units 02:20 02:20 02:58 WBC 15.0 H (3.5-10.8) 10^3/ul RBC 2.93 L (4.0-5.4) 10^6/ul Hgb 6.4 L* (12.0-16.0) g/dl Hct 20 L (35-47) % MCV 69 L (80-97) fL MCH 22 L (27-31) pg MCHC 32 (31-36) g/dl RDW 20 H (10.5-15) % Plt Count 68 L (150-450) 10^3/ul MPV 9 (7.4-10.4) um3 Neut % (Auto) Not Reportable Lymph % (Auto) Not Reportable [place] % (Auto) Not Reportable Eos % (Auto) Not Reportable Baso % (Auto) Not Reportable Absolute Neuts (auto) Not Reportable Absolute Lymphs (auto) Not Reportable Absolute Monos (auto) Not Reportable Absolute Eos (auto) Not Reportable Absolute Basos (auto) Not Reportable Absolute Nucleated RBC Not Reportable Immature Gran % 2 (0-9) % Neutrophils % 85 H (38-83) % Band Neutrophils % 2 (0-8) % Lymphocytes % 6 L (25-47) % Monocytes % 7 (0-7) % Nucleated RBC % Not Reportable Toxic Granulation 1+ Normal RBC Morphology Not Reportable Hypochromasia 2+ Microcytosis 1+ Target Cells 1+ INR (Anticoag Therapy) (0.77-1.02) APTT (26.0-36.3) seconds Sodium (133-145) mmol/L Potassium (3.5-5.0) mmol/L Chloride (101-111) mmol/L Carbon Dioxide (22-32) mmol/L Anion Gap (2-11) mmol/L BUN (6-24) mg/dL Creatinine (0.51-0.95) mg/dL Est GFR ( Amer) (>60) Est GFR (Non-Af Amer) (>60) BUN/Creatinine Ratio (8-20) Glucose (70-100) mg/dL Lactic Acid 1.4 (0.5-2.0) mmol/L Calcium (8.6-10.3) mg/dL Total Bilirubin (0.2-1.0) mg/dL AST (13-39) U/L ALT (7-52) U/L Alkaline Phosphatase (34-104) U/L C-Reactive Protein (< 5.00) mg/L Total Protein (6.4-8.9) g/dL Albumin (3.2-5.2) g/dL Globulin (2-4) g/dL Albumin/Globulin Ratio (1-3) Beta HCG, Quant mIU/mL Serum Alcohol (<10) mg/dL Influenza A (Rapid) (Negative) Influenza B (Rapid) (Negative) Group A Strep Rapid Negative (Negative) Assess/Plan/Problems-Billing Assessment: 27 yo alcoholic presents with hematemesis, abd pain - Patient Problems (1) Upper GI bleed Comment: Poss Louise Solis tear cont ice chips only diet and protonix gtt Dr. Peñaloza to eval for possible EGD (2) Acute blood loss anemia Comment: due to GI bleed 2 U PRBC ordered to transfuse (3) Epigastric pain Comment: suspect gastritis, but alk phos elevated and there is gallbladder sludge on US. MRCP pending, cont Zosyn for now. No significant ascites on exam to place SBP on differential (4) Alcohol withdrawal Comment: very mild tremor noted today. Cont WAM, thiamine, folate (5) LFT elevation Comment: suspect due to ETOH hepatitis, but alk phos and bili siginficantly elevated c/w AST. MRCP pending (6) DVT prophylaxis Comment: Low risk, SCD's
[2018-02-09 10:51] LABS: Urine Appearance Clear; Urine Blood 2+ (Negative); Urine Color Amber; Urine Ketones Negative (Negative); Urine Protein 1+(30 mg/dL) (Negative); Urine Urobilinogen Negative (Negative)
[2018-02-09] MEDS ORDERED: Potassium Chloride IV* 40 MEQ in NS 0.9% 250 ML* 250 ML IVPB ONE (11:00)
[2018-02-09] MEDS: Piperacillin/Tazobac ADVAN(*) 3.375 GM in NS 0.9% 50 ML* 50 ML IVPB SCH ×3 (11:34→22:29)
[2018-02-09 11:41] LABS: Hematocrit 20 % (35-47); Hemoglobin 6.1 g/dl (12.0-16.0); Mean Corpuscular HGB Conc 31 g/dl (31-36); Mean Corpuscular Hemoglobin 22 pg (27-31); Mean Corpuscular Volume 70 fL (80-97); Mean Platelet Volume 8 um3 (7.4-10.4); Platelet Count 62 10^3/ul (150-450); Red Cell Distribution Width 20 % (10.5-15); White Blood Count 12.2 10^3/ul (3.5-10.8)
[2018-02-09] MEDS ORDERED: Folic Acid IV* 1 MG/0.2 ML SYRINGE IV ONE (12:00)
[2018-02-09 12:02] LABS: EGFR Non-African American 87.3 (>60)
[2018-02-09 12:54] LABS: Monocytes % 5 % (0-7)
[2018-02-09] MEDS: LORazepam INJ* 2 MG/ML 1 ML VIAL IM SCH (13:06)
[2018-02-09] MEDS ORDERED: Acetaminophen TAB* 325 MG PO PRN (14:49)
[2018-02-09] MEDS: Acetaminophen ADULT LIQ* 650 MG/20.3 ML UDC PO PRN ×2 (15:15→22:16)
[2018-02-09] MEDS ORDERED: diPHENhydraMINE LIQ* 12.5 MG/5 ML UDC PO PRN (16:20)
[2018-02-09] MEDS: Sucralfate TAB* 1 GM PO SCH (17:36)
[2018-02-09] MEDS ORDERED: Iohexol 300* (CONTRAST) 10 ML SDV IV ONE (17:36)
[2018-02-09 18:04] LABS: Hematocrit 23 % (35-47); Hemoglobin 7.3 g/dl (12.0-16.0)
--- NOTE | 2018-02-09 21:34 | PN ---
Progress Note - Progress Note Date of Service: 02/09/18 Note: Radiologist called notifying that Ms Oneal's CT abd/pel reveals a thickened gallbladder wall possibly representing acute cholecystitis. Also, there is heterogeneity of B kidneys concerning for B pyelonephritis (although UA was negative for bacteria and nitrates, positive WBC/RBCs), liver/spleen. Discussed with Vanessa Ledesma MD who agreed she will need an MRCP (one was ordered at admission, but she refused it today), continue ABX, & he will arrange surgical evaluation in AM. Additionally, in order to get the CT done tonight which she was refusing, I D/C' d her morphine.
--- NOTE | 2018-02-09 21:34 | RAD ---
INDICATION: Elevated liver function tests, epigastric pain evaluate for cholecystitis. COMPARISON: Comparison is made with a prior abdominal ultrasound from February 09, 2018. TECHNIQUE: A CT scan of the abdomen and pelvis was performed with intravenous and oral contrast following intravenous injection of 65 ml of Omnipaque 300 nonionic contrast. Contiguous axial sections were obtained from the lung bases through the symphysis pubis. Images were reconstructed in the coronal and sagittal planes. FINDINGS: There are patchy bilateral groundglass infiltrates present in both lower lobes. There is a trace right pleural effusion. The liver and spleen are moderately enlarged. The liver is decreased in attenuation consistent with fatty infiltration. No calcified gallstones are seen. There is thickening of the wall of the gallbladder. The pancreas appears to be within normal limits. The adrenal glands appear normal in size. The kidneys appear slightly enlarged. There is heterogeneous enhancement of the kidneys with areas of decreased attenuation present in both kidneys suspicious for pyelonephritis. There is mild bilateral perinephric stranding right greater than left. No hydronephrosis is seen. The aorta is normal in caliber and demonstrates homogeneous contrast opacification. There are mildly enlarged retroperitoneal lymph nodes which are most prominent in the left periaortic region measuring up to 1.4 cm in size. The stomach, small and large bowel appear nondistended. The appendix is not well seen. There is mild sigmoid diverticulosis without evidence for diverticulitis. The uterus is anteverted and normal in size. There is a small amount of free intraperitoneal fluid in the pelvis. No free intraperitoneal air is seen. No significant focal osseous abnormality is seen. The results of this exam were discussed Dr. Valadez. IMPRESSION: 1. BILATERAL LOWER LOBE GROUNDGLASS INFILTRATES AND TRACE RIGHT PLEURAL EFFUSION. 2. THICKENING OF THE WALL OF THE GALLBLADDER SUGGESTING THE POSSIBILITY OF ACUTE CHOLECYSTITIS. 3. HETEROGENEOUS ENHANCEMENT OF THE KIDNEYS SUGGESTIVE OF PYELONEPHRITIS. 4. HEPATOSPLENOMEGALY AND HEPATIC STEATOSIS. 5. MILDLY ENLARGED RETROPERITONEAL LYMPH NODES.
--- NOTE | 2018-02-09 22:55 | CONS ---
GASTROENTEROLOGY CONSULT: DATE: 02/09/18 CONSULTING PHYSICIAN: Enedina Sosa REASON FOR CONSULTATION: Profound microcytic anemia in a woman who reported some coffee-ground emesis 4 days ago and who has also noted intermittent dark stool with her complaint of diarrhea, which is predominantly brown to yellow. HISTORY OF PRESENT ILLNESS: This 27-year-old woman, homeless, living in the skilled nursing apparently in the last 2 months and continuing to abuse alcohol in a major way (blood alcohol 40 despite stating she has not been able to drink for 24 to 48 hours). was found to have profound anemia with hemoglobin 6.4, hematocrit 20, MCV 69. She, however, has had hemoglobins in the 7s for a year or two with MCVs under 80. She states she has been vomiting most days. Last time, it was black was 4 days ago. She denies bright red emesis. She denies NSAID use though the alcohol inconsistency is again noted. She states she has been having diarrhea right along, predominantly yellow. She has had numerous admissions for alcoholism. PAST MEDICAL HISTORY: 1. Alcoholism. 2. Alcoholic steatosis. 3. Tobacco abuse. 4. Homeless status. 5. Multiple implanted titanium jewellery appliances. 6. x2. 7. Thrombocytopenia - attributed to alcohol. SOCIAL HISTORY: Not obtainable beyond above without corroboration. No one was in the room with her today. She was asked if anyone had been able to influence her drinking or behavior and said in a rather clipped quick statement "I am an adult, I can do what I want and no one can tell me what to do." REVIEW OF SYSTEMS: No documented history of cardiac, pulmonary, or renal disease. She has had hepatitis C, followed by Dr. Patterson in the past. PHYSICAL EXAMINATION: She is a slender, chronically ill-appearing woman, lying in bed and at this time uncooperative. She is upset that people are disturbing her consistently, she cannot sleep. She is mildly icteric. There is no adenopathy. Breath sounds are intact and symmetric. Heart sounds are regular at 90. Abdomen is prominently rounded, symmetric, firm and the right upper quadrant is slightly tender. There is no involuntary guarding. She will not permit a rectal exam and had a fair amount of colloquial language stated emphatically for emphasis. LABORATORY DATA: Labs: AST 144, ALT 84, alkaline phosphatase 696, bilirubin 4.2. BUN 11, creatinine 0.66, potassium 3.0. Serum alcohol 40 (normal less than 10). IMPRESSION: This 27-year-old woman is profoundly debilitated in multiple ways from the ravages of chronic, sustained high level alcohol abuse. She has had nutritional chronic disease anemia into the 7s with an MCV under 80 for a long time such that the current hemoglobin does not appear to be the effects of massive gastrointestinal blood loss. Clearly, she could have had a Louise- Solis tear or gastritis (corroboration of her outside history would be of great interest), but there is nothing to suggest the severe, acute bleed. In that light, there is no priority to doing endoscopy urgently or emergently. It is still appropriate to give her an empiric PPI drip and get her through withdrawal. She appears to have alcoholic hepatitis, cholestatic form. The picture does not suggest acetaminophen superimposition or any other drug, although if any reliable witness comes forward, it would be of interest to get more history. Her ability to make judgements for herself has to be questioned, especially if she attempts to discharge herself in the next few days. [id number]/[facility] #: [id number] MTDD
[2018-02-10] MEDS: Piperacillin/Tazobac ADVAN(*) 3.375 GM in NS 0.9% 50 ML* 50 ML IVPB SCH ×4 (04:12→22:18)
[2018-02-10] MEDS: Acetaminophen ADULT LIQ* 650 MG/20.3 ML UDC PO PRN ×3 (04:12→18:55)
[2018-02-10] MEDS: NS 0.9% 1000 ML* 1,000 ML IV SCH ×3 (05:16→16:37)
[2018-02-10 07:56] LABS: Hematocrit 26 % (35-47); Hemoglobin 8.4 g/dl (12.0-16.0); Mean Corpuscular HGB Conc 33 g/dl (31-36); Mean Corpuscular Hemoglobin 24 pg (27-31); Mean Corpuscular Volume 73 fL (80-97); Mean Platelet Volume 9 um3 (7.4-10.4); Platelet Count 55 10^3/ul (150-450); Red Blood Count 3.52 10^6/ul (4.0-5.4); Red Cell Distribution Width 20 % (10.5-15)
[2018-02-10] MEDS ORDERED: Potassium Chloride IV* 40 MEQ in NS 0.9% 250 ML* 250 ML IVPB ONE (08:00)
[2018-02-10] MEDS ORDERED: KCL 20 MEQ/100 ML IVPREMIX* 20 MEQ/100 ML BAG IV SCH (08:00)
[2018-02-10 08:03] LABS: EGFR Non-African American 95.6 (>60)
[2018-02-10 08:21] LABS: Monocytes % 2 % (0-7)
[2018-02-10] MEDS: Folic Acid TAB* 1 MG PO SCH (08:25)
[2018-02-10] MEDS: Sucralfate TAB* 1 GM PO SCH ×3 (08:25→16:37)
[2018-02-10] MEDS: Thiamine TAB* 100 MG TAB PO SCH (08:26)
[2018-02-10] MEDS: Pantoprazole IV* 80 MG in NS 0.9% 250 ML* 250 ML IVPB SCH ×2 (09:16→11:44)
--- NOTE | 2018-02-10 09:30 | PN ---
Subjective Date of Service: 02/10/18 Interval History: Pt had a fever of 102 this aM. Had brown liquid diarrhea, no blood, or melena noted in stool.Abd pain is improved. Objective Active Medications: Acetaminophen (Tylenol Adult Liq*) 650 mg PO Q6H PRN PRN Reason: FEVER Last Admin: 02/10/18 04:12 Dose: 650 mg Albuterol (Ventolin 2.5 Mg/3 Ml Neb.Jo*) 2.5 mg INH Q2H PRN PRN Reason: SOB/WHEEZING Diphenhydramine HCl (Benadryl Liq*) 25 mg PO Q6H PRN PRN Reason: Allergy Symptoms Last Admin: 02/09/18 17:40 Dose: 25 mg Folic Acid (Folvite Tab*) 1 mg PO DAILY [facility] Last Admin: 02/10/18 08:25 Dose: Not Given Sodium Chloride (Ns 0.9% 1000 Ml*) 1,000 mls @ 125 mls/hr IV PER RATE [facility] Last Admin: 02/10/18 05:16 Dose: 125 mls/hr Pantoprazole Sodium 80 mg/ (Sodium Chloride) 250 mls @ 25 mls/hr IVPB Q10H [facility] Last Admin: 02/10/18 09:16 Dose: 25 mls/hr Piperacillin Sod/Tazobactam (Sod 3.375 gm/ Sodium Chloride) 50 mls @ 100 mls/ hr IVPB Q6H [facility] Last Admin: 02/10/18 04:12 Dose: 100 mls/hr Potassium Chloride 40 meq/ (Sodium Chloride) 270 mls @ 67.5 mls/hr IVPB ONCE ONE Stop: 02/10/18 11:59 Last Admin: 02/10/18 09:18 Dose: 67.5 mls/hr Lorazepam (Ativan Inj*) 0 - 6 mg IM .PER [facility] PROTOCOL LUC PRN Reason: Protocol Last Admin: 02/09/18 13:06 Dose: 0.5 mg Melatonin (Melatonin (Nf)) 3 mg PO BEDTIME PRN; Protocol PRN Reason: Sleep Ondansetron HCl (Zofran Inj*) 4 mg IV Q6H PRN PRN Reason: NAUSEA Last Admin: 02/09/18 10:14 Dose: 4 mg Sucralfate (Carafate*) 1 gm PO TID AC [facility] Last Admin: 02/10/18 08:25 Dose: Not Given Thiamine HCl (Vitamin B-1 Tab*) 100 mg PO DAILY [facility] Last Admin: 02/10/18 08:26 Dose: Not Given Vital Signs - 8 hr 02/10/18 02/10/18 02/10/18 01:56 02:31 04:07 Temperature 100.5 F 100.0 F 102.6 F Pulse Rate 85 73 81 Respiratory 15 16 Rate Blood Pressure 132/76 137/78 136/82 (mmHg) O2 Sat by Pulse 96 97 97 Oximetry 02/10/18 02/10/18 02/10/18 06:01 08:00 08:10 Temperature 99.7 F 100.2 F Pulse Rate 86 74 Respiratory 17 16 16 Rate Blood Pressure 141/81 136/80 (mmHg) O2 Sat by Pulse 99 98 Oximetry Oxygen Devices in Use Now: None Appearance: 27 yo f in nAD, aAOx3 Eyes: No Scleral Icterus, PERRLA Ears/Nose/Mouth/Throat: NL Teeth, Lips, Gums, Mucous Membranes Moist Neck: NL Appearance and Movements; NL JVP, Trachea Midline Respiratory: Symmetrical Chest Expansion and Respiratory Effort, Clear to Auscultation Cardiovascular: NL Sounds; No Murmurs; No JVD, RRR Abdominal: - - tender in epigastrium , no rebound, no guarding, BS+. Mild ascites present-new from yesterday Lymphatic: No Cervical Adenopathy Extremities: No Clubbing, Cyanosis, - - b/l hand and feet edema Result Diagrams: 02/10/18 07:27 02/10/18 07:27 Additional Lab and Data: Lab Results 02/09/18 02/09/18 02/09/18 Range/Units 01:27 02:20 02:20 WBC (3.5-10.8) 10^3/ul RBC (4.0-5.4) 10^6/ul Hgb (12.0-16.0) g/dl Hct (35-47) % MCV (80-97) fL MCH (27-31) pg MCHC (31-36) g/dl RDW (10.5-15) % Plt Count (150-450) 10^3/ul MPV (7.4-10.4) um3 Neut % (Auto) Lymph % (Auto) [place] % (Auto) Eos % (Auto) Baso % (Auto) Absolute Neuts (auto) Absolute Lymphs (auto) Absolute Monos (auto) Absolute Eos (auto) Absolute Basos (auto) Absolute Nucleated RBC Immature Gran % (0-9) % Neutrophils % (38-83) % Band Neutrophils % (0-8) % Lymphocytes % (25-47) % Monocytes % (0-7) % Nucleated RBC % Toxic Granulation Normal RBC Morphology Hypochromasia Microcytosis Target Cells INR (Anticoag Therapy) 1.15 H (0.77-1.02) APTT 28.1 (26.0-36.3) seconds Sodium 130 L (133-145) mmol/L Potassium 3.0 L (3.5-5.0) mmol/L Chloride 98 L (101-111) mmol/L Carbon Dioxide 22 (22-32) mmol/L Anion Gap 10 (2-11) mmol/L BUN 11 (6-24) mg/dL Creatinine 0.66 (0.51-0.95) mg/dL Est GFR ( Amer) 138.2 (>60) Est GFR (Non-Af Amer) 107.4 (>60) BUN/Creatinine Ratio 16.7 (8-20) Glucose 112 H (70-100) mg/dL Lactic Acid (0.5-2.0) mmol/L Calcium 7.9 L (8.6-10.3) mg/dL Total Bilirubin 4.20 H (0.2-1.0) mg/dL AST 144 H (13-39) U/L ALT 84 H (7-52) U/L Alkaline Phosphatase 696 H (34-104) U/L C-Reactive Protein 170.47 H (< 5.00) mg/L Total Protein 6.5 (6.4-8.9) g/dL Albumin 2.2 L (3.2-5.2) g/dL Globulin 4.3 H (2-4) g/dL Albumin/Globulin Ratio 0.5 L (1-3) Beta HCG, Quant 2.19 mIU/mL Serum Alcohol 40 H (<10) mg/dL Influenza A (Rapid) Negative (Negative) Influenza B (Rapid) Negative (Negative) Group A Strep Rapid (Negative) 02/09/18 02/09/18 02/09/18 Range/Units 02:20 02:20 02:58 WBC 15.0 H (3.5-10.8) 10^3/ul RBC 2.93 L (4.0-5.4) 10^6/ul Hgb 6.4 L* (12.0-16.0) g/dl Hct 20 L (35-47) % MCV 69 L (80-97) fL MCH 22 L (27-31) pg MCHC 32 (31-36) g/dl RDW 20 H (10.5-15) % Plt Count 68 L (150-450) 10^3/ul MPV 9 (7.4-10.4) um3 Neut % (Auto) Not Reportable Lymph % (Auto) Not Reportable [place] % (Auto) Not Reportable Eos % (Auto) Not Reportable Baso % (Auto) Not Reportable Absolute Neuts (auto) Not Reportable Absolute Lymphs (auto) Not Reportable Absolute Monos (auto) Not Reportable Absolute Eos (auto) Not Reportable Absolute Basos (auto) Not Reportable Absolute Nucleated RBC Not Reportable Immature Gran % 2 (0-9) % Neutrophils % 85 H (38-83) % Band Neutrophils % 2 (0-8) % Lymphocytes % 6 L (25-47) % Monocytes % 7 (0-7) % Nucleated RBC % Not Reportable Toxic Granulation 1+ Normal RBC Morphology Not Reportable Hypochromasia 2+ Microcytosis 1+ Target Cells 1+ INR (Anticoag Therapy) (0.77-1.02) APTT (26.0-36.3) seconds Sodium (133-145) mmol/L Potassium (3.5-5.0) mmol/L Chloride (101-111) mmol/L Carbon Dioxide (22-32) mmol/L Anion Gap (2-11) mmol/L BUN (6-24) mg/dL Creatinine (0.51-0.95) mg/dL Est GFR ( Amer) (>60) Est GFR (Non-Af Amer) (>60) BUN/Creatinine Ratio (8-20) Glucose (70-100) mg/dL Lactic Acid 1.4 (0.5-2.0) mmol/L Calcium (8.6-10.3) mg/dL Total Bilirubin (0.2-1.0) mg/dL AST (13-39) U/L ALT (7-52) U/L Alkaline Phosphatase (34-104) U/L C-Reactive Protein (< 5.00) mg/L Total Protein (6.4-8.9) g/dL Albumin (3.2-5.2) g/dL Globulin (2-4) g/dL Albumin/Globulin Ratio (1-3) Beta HCG, Quant mIU/mL Serum Alcohol (<10) mg/dL Influenza A (Rapid) (Negative) Influenza B (Rapid) (Negative) Group A Strep Rapid Negative (Negative) Microbiology and Other Data: Microbiology 02/09/18 14:50 Transfusion Reaction Culture - Preliminary Blood Bag Culture Under Incubation Transfusion Reaction Gram Stain - Final Assess/Plan/Problems-Billing Assessment: 27 yo alcoholic presents with hematemesis, abd pain - Patient Problems (1) Upper GI bleed Comment: Poss Louise Solis tear, but due to no recurrence of hematemesis cont medcical management and no EGD as per Dr. Peñaloza cont ice chips only diet and protonix gtt (2) Acute blood loss anemia Comment: due to GI bleed s/p 2 U PRBC transfused on 02/09/18 (3) Epigastric pain Comment: suspect gastritis, but alk phos elevated and there is gallbladder sludge on US. MRCP -unable to perform due to muliple piercings that pt refused to remove CT shows cholecystitis, Dr. Alejandra recommends HIDA. (4) Alcohol withdrawal Comment: very mild tremor noted today. Cont WAM, thiamine, folate (5) LFT elevation Comment: cholangitis vs cholecystitis vs ATOH hepatitis( alk phos is higher than AST elevation, makes GB disease more likely) (6) Pancytopenia Comment: Chronic though worsening due to recent hematemesis (hepatosplenomegaly and hepatic steatosis on CT) suspect due to alcoholism (7) DVT prophylaxis Comment: Low risk, SCD's
--- NOTE | 2018-02-10 09:35 | PN ---
Progress Note - Progress Note Date of Service: 02/10/18 - Gastroenterology Note: Patient seen and examined. C/o fever. Denies abdominal pain this am but admits to bloating. Bowel movements are soft brown and at times harder in consistency. Tolerating liquids. No hematemesis/nausea/emesis/melena/rectal bleeding. Vital Signs: Temp Pulse Resp BP Pulse Ox 99.7 F 86 17 141/81 99 02/10/18 06:01 02/10/18 06:01 02/10/18 06:01 02/10/18 06:01 02/10/18 06:01 Physical Examination: GENERAL: NAD. AAOx3. CV: RRR. PULM: CTAB. ABDOMEN: +BS. +distention. No R/G/R. No ttp. Negative Moreno's sign. EXTREMITIES: Warm to touch, No edema. Laboratory Last Values WBC 11.0 10^3/ul (3.5-10.8) H 02/10/18 07:27 RBC 3.52 10^6/ul (4.0-5.4) L 02/10/18 07:27 Hgb 8.4 g/dl (12.0-16.0) L 02/10/18 07:27 Hct 26 % (35-47) L 02/10/18 07:27 MCV 73 fL (80-97) L 02/10/18 07:27 MCH 24 pg (27-31) L 02/10/18 07:27 MCHC 33 g/dl (31-36) 02/10/18 07:27 RDW 20 % (10.5-15) H 02/10/18 07:27 Plt Count 55 10^3/ul (150-450) L 02/10/18 07:27 MPV 9 um3 (7.4-10.4) 02/10/18 07:27 Neut % (Auto) Not Reportable 02/10/18 07:27 Lymph % (Auto) Not Reportable 02/10/18 07:27 [place] % (Auto) Not Reportable 02/10/18 07:27 Eos % (Auto) Not Reportable 02/10/18 07:27 Baso % (Auto) Not Reportable 02/10/18 07:27 Absolute Neuts (auto) Not Reportable 02/10/18 07:27 Absolute Lymphs (auto) Not Reportable 02/10/18 07:27 Absolute Monos (auto) Not Reportable 02/10/18 07:27 Absolute Eos (auto) Not Reportable 02/10/18 07:27 Absolute Basos (auto) Not Reportable 02/10/18 07:27 Absolute Nucleated RBC Not Reportable 02/10/18 07:27 Immature Gran % 13 % (0-9) H 02/10/18 07:27 Neutrophils % 74 % (38-83) 02/10/18 07:27 Band Neutrophils % 10 % (0-8) H 02/10/18 07:27 Lymphocytes % 10 % (25-47) L 02/10/18 07:27 Monocytes % 2 % (0-7) 02/10/18 07:27 Eosinophils % 1 % (0-6) 02/10/18 07:27 Basophils % 0 % (0-2) 02/10/18 07:27 Myelocytes % 3 % (0-1) H 02/10/18 07:27 Nucleated RBC % Not Reportable 02/10/18 07:27 Abs Neuts (Manual) 8.1 10^3/ul (1.5-7.7) H 02/10/18 07:27 Abs Monocytes (Manual) 0.2 10^3/ul (0-0.8) 02/10/18 07:27 Absolute Eos (Manual) 0.1 10^3/ul (0-0.6) 02/10/18 07:27 Abs Basophils (Manual) 0 10^3/ul (0-0.2) 02/10/18 07:27 Toxic Granulation 2+ 02/09/18 11:15 Normal RBC Morphology Not Reportable 02/10/18 07:27 Polychromasia 1+ 02/09/18 11:15 Hypochromasia 1+ 02/10/18 07:27 Anisocytosis 1+ 02/10/18 07:27 Microcytosis 1+ 02/09/18 02:20 Target Cells 1+ 02/10/18 07:27 Stomatocytes 2+ 02/09/18 11:15 INR (Anticoag Therapy) 1.15 (0.77-1.02) H 02/09/18 02:20 APTT 28.1 seconds (26.0-36.3) 02/09/18 02:20 Sodium 132 mmol/L (133-145) L 02/10/18 07:27 Potassium 3.2 mmol/L (3.5-5.0) L 02/10/18 07:27 Chloride 104 mmol/L (101-111) 02/10/18 07:27 Carbon Dioxide 22 mmol/L (22-32) 02/10/18 07:27 Anion Gap 6 mmol/L (2-11) 02/10/18 07:27 BUN 4 mg/dL (6-24) L 02/10/18 07:27 Creatinine 0.73 mg/dL (0.51-0.95) 02/10/18 07:27 Est GFR ( Amer) 123.0 (>60) 02/10/18 07:27 Est GFR (Non-Af Amer) 95.6 (>60) 02/10/18 07:27 BUN/Creatinine Ratio 5.5 (8-20) L 02/10/18 07:27 Glucose 81 mg/dL (70-100) 02/10/18 07:27 Lactic Acid 1.4 mmol/L (0.5-2.0) 02/09/18 02:20 Calcium 6.9 mg/dL (8.6-10.3) L 02/10/18 07:27 Magnesium 1.1 mg/dL (1.9-2.7) L 02/10/18 07:27 Total Bilirubin 5.20 mg/dL (0.2-1.0) H 02/10/18 07:27 Direct Bilirubin 3.60 mg/dL (0.03-0.18) H 02/09/18 11:15 Indirect Bilirubin 1.2 mg/dL (0.3-1.0) H 02/09/18 11:15 AST 130 U/L (13-39) H 02/10/18 07:27 ALT 73 U/L (7-52) H 02/10/18 07:27 Alkaline Phosphatase 585 U/L (34-104) H 02/10/18 07:27 Ammonia 39 mol/L (16-53) 02/10/18 07:27 C-Reactive Protein 170.47 mg/L (< 5.00) H 02/09/18 02:20 Total Protein 5.8 g/dL (6.4-8.9) L 02/10/18 07:27 Albumin 1.9 g/dL (3.2-5.2) L 02/10/18 07:27 Globulin 3.9 g/dL (2-4) 02/10/18 07:27 Albumin/Globulin Ratio 0.5 (1-3) L 02/10/18 07:27 Lipase 32 U/L (11.0-82.0) 02/10/18 07:27 Beta HCG, Quant 2.19 mIU/mL 02/09/18 02:20 Urine Color [place]lin 02/09/18 09:18 Urine Appearance Clear 02/09/18 09:18 Urine pH 5.0 (5-9) 02/09/18 09:18 Ur Specific [place] 1.010 (1.010-1.030) 02/09/18 09:18 Urine Protein 1+(30 mg/dl) (Negative) A 02/09/18 09:18 Urine Ketones Negative (Negative) 02/09/18 09:18 Urine Blood 2+ (Negative) A 02/09/18 09:18 Urine Nitrate Negative (Negative) 02/09/18 09:18 Urine Bilirubin Negative (Negative) 02/09/18 09:18 Urine Urobilinogen Negative (Negative) 02/09/18 09:18 Ur Leukocyte Esterase 3+ (Negative) A 02/09/18 09:18 Urine WBC (Auto) 3+(>20/hpf) (Absent) A 02/09/18 09:18 Urine RBC (Auto) 3+(>10/hpf) (Absent) A 02/09/18 09:18 Ur Squamous Epith Cells Present (Absent) A 02/09/18 09:18 Urine Bacteria Absent (Absent) 02/09/18 09:18 Urine Glucose Negative (Negative) 02/09/18 09:18 Urine Opiates Screen None detected (None Detect) 02/09/18 09:18 Ur Barbiturates Screen None detected (None Detect) 02/09/18 09:18 Ur Phencyclidine Scrn None detected (None Detect) 02/09/18 09:18 Ur Amphetamines Screen None detected (None Detect) 02/09/18 09:18 U Benzodiazepines Scrn None detected (None Detect) 02/09/18 09:18 Urine Cocaine Screen None detected (None Detect) 02/09/18 09:18 U Cannabinoids Screen None detected (None Detect) 02/09/18 09:18 Serum Alcohol 40 mg/dL (<10) H 02/09/18 02:20 Influenza A (Rapid) Negative (Negative) 02/09/18 01:27 Influenza B (Rapid) Negative (Negative) 02/09/18 01:27 Group A Strep Rapid Negative (Negative) 02/09/18 02:58 Blood Type B Positive 02/09/18 02:20 Antibody Screen Negative 02/09/18 02:20 Crossmatch See Detail 02/09/18 02:20 Donor Unit # [id number] 02/09/18 14:50 Post-Trans Blood Type B Positive 02/09/18 14:50 Post-Trans GENE Negative 02/09/18 14:50 27 yo female who is homeless with etoh abuse presented with coffee-ground emesis , elevated LFTs and HCV. CT revealed possible acute cholecystitis. Surgery was consulted for further evaluation. Tolerating clear liquids without emesis since admission. She was also noted to be anemic and is s/p 2 units or prbcs. 1. Coffee-ground emesis - resolved. ~Resolved since admission. ~Tolerating clear liquids. 2. Acute blood loss anemia ~Hgb 6.1-->8.4 today s/p 2 units of prbcs. ~No evidence of active bleeding. ~I had an extensive discussion with patient and she is refusing EGD for further evaluation to rule out esophageal varices vs PUD vs Louise Solis Tear. Discussed with Dr. Sosa. Will hold off on EGD since emesis has resolved and hgb remains stable for now. 3. Elevated LFTs with thrombocytopenia ~Likely from alcoholic hepatitis with underlying untreated HCV. ~Patient has symptomatically improved. ~INR 1.3 on admission. ~HIDA was negative for acute cholecystitis. Surgery recs appreciated. No plans for surgery. ~Abdominal US and CT imaging revealed hepatic steatosis and hepatosplenomegaly. No hepatic masses were seen. ~Discussed with Dr. Sosa. Patient has a previous history of HCV. Recommend repeating hepatitis panel. Viral load and genotyping may be done as outpatient. Will also need an AFP for HCC surveillance. ~Monitor LFTs. 4. ETOH-abuse ~[facility] protocol 5. Hx of HCV D/w Dr. Sosa. Please call any issues or concerns. Shadia Jin D.O.
--- NOTE | 2018-02-10 10:30 | CONSULT ---
Consult Consult: Surgical consult dictated Impression/Plan: RUQ abdominal pain Elevated LFTs, more total juana and alk phosph than transaminases; ? possible cholecystitis HIDA scan already arranged Fever, continue antipyretics and antibiotics No signs of acute abdomen Will continue to follow
[2018-02-10] MEDS ORDERED: Mouth Piece, Nicotine* 1 EACH CARTRIDGE INH PRN ×2 (13:57)
[2018-02-10] MEDS: Nicotine Inhaler* 10 MG AMP INH PRN ×2 (14:13→16:37)
--- NOTE | 2018-02-10 15:07 | RAD ---
INDICATION: Abdominal pain evaluate for cholecystitis. Comparison: Comparison is made with a prior CT of the abdomen and pelvis from February 09, 2018. Technique: The patient was given an intravenous injection of 6.8 mCi of technetium 99m Choletec intravenously and multiple images of the right upper quadrant were obtained. FINDINGS: The images demonstrate normal homogeneous uptake of radiopharmaceutical in the liver. No significant focal abnormality is seen. There is also prompt visualization of the extrahepatic bile ducts and gallbladder. There is delayed visualization of the small bowel which is not seen and distal approximately 3 hours postinjection. IMPRESSION: 1. NORMAL FILLING OF THE GALLBLADDER WITH RADIOPHARMACEUTICAL, NO EVIDENCE FOR ACUTE CHOLECYSTITIS. 2. DELAYED VISUALIZATION OF THE SMALL BOWEL.
--- NOTE | 2018-02-10 17:38 | CONS ---
CC: Dr. Peñaloza, GI * CONSULTATION REPORT: DATE OF CONSULT: 02/10/18 PATIENT OF: Sal Valadez MD REFERRED TO: Joe Alejandra MD REASON FOR CONSULT: 1. Elevated liver enzymes. 2. Right upper quadrant pain. 3. Concern for cholecystitis. CHIEF COMPLAINT: Abdominal pain and jaundice. HISTORY OF PRESENT ILLNESS: Lor is a 27-year-old female who presented to the emergency room last night with complaints of 4 to 5 days' history of progressively worsening right upper quadrant abdominal pain. The patient has been living in the [facility] in the past 2 months and has a significant past medical history of chronic alcoholism. She has been describing worsening abdominal pain localized to the right upper quadrant with associated nausea, vomiting, diarrhea as well as fever and chills. She also reports occasional black stools with 1 episode of coffee-black emesis 4 days ago. She described the pain as being dull, achy with sharp episodes and not related to food consumption. She has had similar pains in the past localized to her right side that she contributed to a known liver disease. She has history of hepatitis C due to remote history of IV drug abuse. She denies any use of aspirin or other NSAID's lately. She notes that she has not had any alcohol for the past 2 days and has been taking only 3 beers on average daily, trying to quit drinking altogether. She was noted to have a blood alcohol level of 40 during her ED visit. Given her ongoing symptoms and laboratory workup that showed significant elevated liver enzymes including bilirubin of 4 as well as clinical jaundice, the patient was admitted under medical services for further evaluation. The patient was seen last night in consultation with GI by Dr. Peñaloza. It was thought that the patient did not have any evidence of an acute GI blood loss, but was found also to be profoundly anemic with hemoglobin of 6.4. She received 2 units of packed red blood cells and she was feeling much better this morning. She continued to have intermittent pain, however, her fever and chills has not resolved despite taking Tylenol on a regular basis. She had a CT scan of the abdomen and pelvis last night as well that revealed a thickened gallbladder wall as well as sludge in the common bile duct with possibility of acute cholecystitis. Given the findings of her CT scan , we were asked to see the patient for further evaluation of possible cholecystitis versus cholestasis. PAST MEDICAL HISTORY: As mentioned above, significant for chronic alcoholism; however, the patient notes not having any alcohol for the past couple of days, in contrast to her blood alcohol level of 40 during her ED visit last night. She also had history of hepatitis C due to a remote use of IV drugs. PAST SURGICAL HISTORY: Significant for C-sections x2. CURRENT MEDICATIONS: She does not take any medications at home. ALLERGIES: There is no known drug allergies. FAMILY HISTORY: Noncontributory. SOCIAL HISTORY: The patient is a smoker who smokes on an average, few cigarettes to a quarter pack per day. She notes again not having any alcohol in the past couple of days and has been cutting it down to 3 beers per day for the past couple of weeks. She has remote history of IV drug abuse; however, she denies any recreational drugs at this time. She has been staying at the [facility] for the past 2 months; however, she informs me that her fiance and herself are getting an apartment leased this Thursday. REVIEW OF SYSTEMS: See HPI, otherwise negative. She denies any headache, dizziness, blurred vision or double vision. She admits to occasional palpitation and light tremors, but denies any chest pain, shortness of breath, cough or wheezing. She admits to sore throat at times due to frequent vomiting in the past, but denies any recent contact with flu or strep throat. She admits to right upper quadrant abdominal pain with associated nausea, vomiting, fever and chills. Denies any back pain, flank pain, dysuria, hematuria, or urinary frequency. PHYSICAL EXAM: General: She is a pleasant young female, appears stated age and in no acute distress or discomfort at the time of consultation. Vitals: Her recent set of vital signs was temperature of 100.2, pulse of 74, blood pressure of 136/80, respirations of 16 and O2 saturation of 98% on room air. HEENT: Head is normocephalic, atraumatic. Sclerae icteric. PERRLA, EOMs intact. Oropharynx pink and moist. Neck: Supple, trachea midline. No cervical adenopathy noted. Lungs: Clear to auscultation bilaterally. Heart: Regular rate and rhythm. Normal S1, S2 without rubs, murmurs or gallops. Back : With normal curvature. No CVA tenderness. Breast exam: Deferred at this time. Abdomen: Soft and nondistended. There is moderate right upper quadrant tenderness noted with deep palpation. The lower hepatic edge is noted to be at least 3 fingerbreadths below the costal margin. There is no hernias, masses, or evidence of Caput medusae. Moreno's sign was positive. Extremities: Without cyanosis or clubbing. There is some 1+ edema noted to both hands bilaterally extending from the rest to the dorsum, more prominent on her left hand. Neurologic: Grossly intact. There was no evidence of any resting tremor or agitation. Rectal exam: Deferred at this time. DIAGNOSTIC STUDIES/LAB DATA: Her most recent CBC this morning was white count of 11,000; hemoglobin of 8.4, corrected from 6.4 last night; hematocrit of 26; platelets of 55,000. Her INR is 1.15. Her comprehensive metabolic panel was sodium of 132, potassium 3.2, BUN of 4, creatinine of 0.7. Her LFTs with total bilirubin up to 5.2 this morning from 4.2 last night. Her transaminases are slightly high with 130 and 73 respectively. Alkaline phosphatase is 585 and her C- reactive protein is 170. Accessory diagnostic data: The patient had a CT scan and an ultrasound last night. Her ultrasound of the right upper quadrant revealed evidence of gallbladder sludge as well as hepatomegaly and hepatic steatosis. Her CT scan that was done later on the same night revealed evidence of thickening of the gallbladder wall suggesting possible acute cholecystitis. ASSESSMENT AND PLAN: A 27-year-old female with longstanding history of chronic alcoholism and hepatitis C who was admitted last night with worsening right upper quadrant abdominal pain, fever, elevated liver enzymes and possibility for a GI blood loss with profound anemia. I went on and discussed with the patient the finding of her exam. She appears to be comfortable at this time; however, there was some concern regarding the possibility of acute cholecystitis versus cholestasis. She appears to be clinically jaundiced with markedly elevated LFTs, more so than her transaminases suggesting the possibility of biliary obstruction. Case was discussed with Dr. Alejandra and we will obtain a HIDA scan this morning. I discussed with her rationale, indication, risks and benefits of any surgical intervention if needed. I also discussed with her the possibility of cholecystotomy tube insertion if her LFT numbers do not come down. Again, she has multiple comorbidities related to her chronic alcoholism and will be all addressed with the medical and GI team. Thank you for this consultation. MONTSERRAT SALAZAR [id number]/CPS #: [id number] MTDAndi
[2018-02-10] MEDS: Omeprazole CAP* 20 MG PO SCH (20:51)
[2018-02-10] MEDS: LORazepam INJ* 2 MG/ML 1 ML VIAL IM SCH (22:28)
[2018-02-11] MEDS: Acetaminophen ADULT LIQ* 650 MG/20.3 ML UDC PO PRN ×4 (01:51→22:51)
[2018-02-11] MEDS: LORazepam INJ* 2 MG/ML 1 ML VIAL IM SCH (01:54)
[2018-02-11] MEDS: Piperacillin/Tazobac ADVAN(*) 3.375 GM in NS 0.9% 50 ML* 50 ML IVPB SCH ×4 (04:14→22:39)
[2018-02-11 06:26] LABS: Hematocrit 29 % (35-47); Hemoglobin 9.6 g/dl (12.0-16.0); Mean Corpuscular HGB Conc 33 g/dl (31-36); Mean Corpuscular Hemoglobin 25 pg (27-31); Mean Corpuscular Volume 74 fL (80-97); Mean Platelet Volume 9 um3 (7.4-10.4); Platelet Count 72 10^3/ul (150-450); Red Blood Count 3.94 10^6/ul (4.0-5.4); Red Cell Distribution Width 20 % (10.5-15)
[2018-02-11 06:30] LABS: EGFR Non-African American 132.6 (>60)
[2018-02-11] MEDS ORDERED: Magnesium Sulf 4 GM/100 ML IV* 4,000 MG/100 ML BAG IVPB ONE (07:22)
[2018-02-11] MEDS: Magnesium Oxide TAB* 400 MG PO SCH (08:12)
[2018-02-11] MEDS: Folic Acid TAB* 1 MG PO SCH (08:12)
[2018-02-11] MEDS: Omeprazole CAP* 20 MG PO SCH ×2 (08:12→22:39)
[2018-02-11] MEDS: Sucralfate TAB* 1 GM PO SCH ×3 (08:13→16:48)
[2018-02-11] MEDS: Thiamine TAB* 100 MG TAB PO SCH (08:13)
--- NOTE | 2018-02-11 09:12 | PN ---
Progress Note - Progress Note Date of Service: 02/11/18 SOAP: Subjective: Patient seen and examined at bedside. Reports doing much better today. Minimal RUQ pain, less frequent, still has intermittent fever over night. Denies nausea or vomiting. HIDA scan reviewed from yesterday, normal GB filling. Objective: Awake and alert, eating breakfast, clear liquids, comfortable Temp 100.8, no tachycardia Abdomen soft, ND, mild RUQ tenderness No guarding or rigidity. Labs noted, total bili trending down to 3.9, WBC normal HIDA scan reviewed Assessment: A 27 y/o female with RUQ abdominal pain, likely related to her alcoholic hepatitis, no evidence of cholecystitis Plan: Medical management per hospitalist team Please call us if any surgical concerns Sign off patient.
--- NOTE | 2018-02-11 13:50 | PN ---
Subjective Date of Service: 02/11/18 Interval History: Pt feels much better. appetite good, abd pain resolved Objective Active Medications: Acetaminophen (Tylenol Adult Liq*) 650 mg PO Q6H PRN PRN Reason: FEVER Last Admin: 02/11/18 08:12 Dose: 650 mg Albuterol (Ventolin 2.5 Mg/3 Ml Neb.Jo*) 2.5 mg INH Q2H PRN PRN Reason: SOB/WHEEZING Device (Nicotine Mouth Piece*) 1 each INH .USE WITH NICOTROL PRN PRN Reason: CRAVING Last Admin: 02/10/18 14:13 Dose: 1 each Diphenhydramine HCl (Benadryl Liq*) 25 mg PO Q6H PRN PRN Reason: Allergy Symptoms Last Admin: 02/09/18 17:40 Dose: 25 mg Folic Acid (Folvite Tab*) 1 mg PO DAILY [facility] Last Admin: 02/11/18 08:12 Dose: 1 mg Piperacillin Sod/Tazobactam (Sod 3.375 gm/ Sodium Chloride) 50 mls @ 100 mls/ hr IVPB Q6H [facility] Last Admin: 02/11/18 10:47 Dose: 100 mls/hr Lorazepam (Ativan Inj*) 0 - [address] [facility] PROTOCOL [facility] PRN Reason: Protocol Last Admin: 02/11/18 01:54 Dose: 0.5 mg Magnesium Oxide (Magox 400 Tab*) 800 mg PO DAILY [facility] Last Admin: 02/11/18 08:12 Dose: 800 mg Melatonin (Melatonin (Nf)) 3 mg PO BEDTIME PRN; Protocol PRN Reason: Sleep Nicotine (Nicotine Inhaler*) 10 mg INH Q2H PRN PRN Reason: CRAVING Last Admin: 02/10/18 16:37 Dose: 10 mg Omeprazole (Prilosec Cap*) 20 mg PO BID [facility] Last Admin: 02/11/18 08:12 Dose: 20 mg Ondansetron HCl (Zofran Inj*) 4 mg IV Q6H PRN PRN Reason: NAUSEA Last Admin: 02/09/18 10:14 Dose: 4 mg Sucralfate (Carafate*) 1 gm PO TID AC [facility] Last Admin: 02/11/18 10:47 Dose: 1 gm Thiamine HCl (Vitamin B-1 Tab*) 100 mg PO DAILY [facility] Last Admin: 02/11/18 08:13 Dose: 100 mg Vital Signs - 8 hr 02/11/18 02/11/18 02/11/18 06:08 08:00 08:06 Temperature 100.8 F Pulse Rate 79 63 Respiratory 16 12 Rate Blood Pressure 135/85 130/74 (mmHg) O2 Sat by Pulse 100 96 98 Oximetry 02/11/18 10:00 Temperature Pulse Rate Respiratory 16 Rate Blood Pressure (mmHg) O2 Sat by Pulse Oximetry Oxygen Devices in Use Now: None Appearance: 27 yo F in nAD, aAOx3 Eyes: PERRLA Ears/Nose/Mouth/Throat: NL Teeth, Lips, Gums, Mucous Membranes Moist Neck: NL Appearance and Movements; NL JVP, Trachea Midline Respiratory: Symmetrical Chest Expansion and Respiratory Effort, - - faint baibasiliar crackles Cardiovascular: NL Sounds; No Murmurs; No JVD, RRR Abdominal: - - small ascites noted, NT Lymphatic: No Cervical Adenopathy Extremities: No Clubbing, Cyanosis, - - hand and feet edema resolving Skin: No Nodules or Sclerosis, - - jaundice Neurological: Alert and Oriented x 3, NL Muscle Strength and Tone Result Diagrams: 02/11/18 06:06 02/11/18 06:06 Additional Lab and Data: Lab Results 02/09/18 02/09/18 02/09/18 Range/Units 01:27 02:20 02:20 WBC (3.5-10.8) 10^3/ul RBC (4.0-5.4) 10^6/ul Hgb (12.0-16.0) g/dl Hct (35-47) % MCV (80-97) fL MCH (27-31) pg MCHC (31-36) g/dl RDW (10.5-15) % Plt Count (150-450) 10^3/ul MPV (7.4-10.4) um3 Neut % (Auto) Lymph % (Auto) [place] % (Auto) Eos % (Auto) Baso % (Auto) Absolute Neuts (auto) Absolute Lymphs (auto) Absolute Monos (auto) Absolute Eos (auto) Absolute Basos (auto) Absolute Nucleated RBC Immature Gran % (0-9) % Neutrophils % (38-83) % Band Neutrophils % (0-8) % Lymphocytes % (25-47) % Monocytes % (0-7) % Nucleated RBC % Toxic Granulation Normal RBC Morphology Hypochromasia Microcytosis Target Cells INR (Anticoag Therapy) 1.15 H (0.77-1.02) APTT 28.1 (26.0-36.3) seconds Sodium 130 L (133-145) mmol/L Potassium 3.0 L (3.5-5.0) mmol/L Chloride 98 L (101-111) mmol/L Carbon Dioxide 22 (22-32) mmol/L Anion Gap 10 (2-11) mmol/L BUN 11 (6-24) mg/dL Creatinine 0.66 (0.51-0.95) mg/dL Est GFR ( Amer) 138.2 (>60) Est GFR (Non-Af Amer) 107.4 (>60) BUN/Creatinine Ratio 16.7 (8-20) Glucose 112 H (70-100) mg/dL Lactic Acid (0.5-2.0) mmol/L Calcium 7.9 L (8.6-10.3) mg/dL Total Bilirubin 4.20 H (0.2-1.0) mg/dL AST 144 H (13-39) U/L ALT 84 H (7-52) U/L Alkaline Phosphatase 696 H (34-104) U/L C-Reactive Protein 170.47 H (< 5.00) mg/L Total Protein 6.5 (6.4-8.9) g/dL Albumin 2.2 L (3.2-5.2) g/dL Globulin 4.3 H (2-4) g/dL Albumin/Globulin Ratio 0.5 L (1-3) Beta HCG, Quant 2.19 mIU/mL Serum Alcohol 40 H (<10) mg/dL Influenza A (Rapid) Negative (Negative) Influenza B (Rapid) Negative (Negative) Group A Strep Rapid (Negative) 02/09/18 02/09/18 02/09/18 Range/Units 02:20 02:20 02:58 WBC 15.0 H (3.5-10.8) 10^3/ul RBC 2.93 L (4.0-5.4) 10^6/ul Hgb 6.4 L* (12.0-16.0) g/dl Hct 20 L (35-47) % MCV 69 L (80-97) fL MCH 22 L (27-31) pg MCHC 32 (31-36) g/dl RDW 20 H (10.5-15) % Plt Count 68 L (150-450) 10^3/ul MPV 9 (7.4-10.4) um3 Neut % (Auto) Not Reportable Lymph % (Auto) Not Reportable [place] % (Auto) Not Reportable Eos % (Auto) Not Reportable Baso % (Auto) Not Reportable Absolute Neuts (auto) Not Reportable Absolute Lymphs (auto) Not Reportable Absolute Monos (auto) Not Reportable Absolute Eos (auto) Not Reportable Absolute Basos (auto) Not Reportable Absolute Nucleated RBC Not Reportable Immature Gran % 2 (0-9) % Neutrophils % 85 H (38-83) % Band Neutrophils % 2 (0-8) % Lymphocytes % 6 L (25-47) % Monocytes % 7 (0-7) % Nucleated RBC % Not Reportable Toxic Granulation 1+ Normal RBC Morphology Not Reportable Hypochromasia 2+ Microcytosis 1+ Target Cells 1+ INR (Anticoag Therapy) (0.77-1.02) APTT (26.0-36.3) seconds Sodium (133-145) mmol/L Potassium (3.5-5.0) mmol/L Chloride (101-111) mmol/L Carbon Dioxide (22-32) mmol/L Anion Gap (2-11) mmol/L BUN (6-24) mg/dL Creatinine (0.51-0.95) mg/dL Est GFR ( Amer) (>60) Est GFR (Non-Af Amer) (>60) BUN/Creatinine Ratio (8-20) Glucose (70-100) mg/dL Lactic Acid 1.4 (0.5-2.0) mmol/L Calcium (8.6-10.3) mg/dL Total Bilirubin (0.2-1.0) mg/dL AST (13-39) U/L ALT (7-52) U/L Alkaline Phosphatase (34-104) U/L C-Reactive Protein (< 5.00) mg/L Total Protein (6.4-8.9) g/dL Albumin (3.2-5.2) g/dL Globulin (2-4) g/dL Albumin/Globulin Ratio (1-3) Beta HCG, Quant mIU/mL Serum Alcohol (<10) mg/dL Influenza A (Rapid) (Negative) Influenza B (Rapid) (Negative) Group A Strep Rapid Negative (Negative) Microbiology and Other Data: Microbiology 02/09/18 14:50 Transfusion Reaction Culture - Preliminary Blood Bag Culture Under Incubation Transfusion Reaction Gram Stain - Final Assess/Plan/Problems-Billing Assessment: 27 yo alcoholic presents with hematemesis, abd pain - Patient Problems (1) Upper GI bleed Comment: Poss Louise Solis tear, but due to no recurrence of hematemesis cont medical management and no EGD . Pt refused tolerating soft diet , on PPI BID (2) Acute blood loss anemia Comment: due to GI bleed s/p 2 U PRBC transfused on 02/09/18 (3) Epigastric pain Comment: suspect gastritis, resolved (4) Alcohol withdrawal Comment: no tremor noted today. cont thiamine, folate (5) LFT elevation Comment: ETOH hepatitis. Gallbladder disease r/o by HIDA scan (6) Pancytopenia Comment: Chronic though worsening due to recent hematemesis (hepatosplenomegaly and hepatic steatosis on CT) suspect due to alcoholism (7) Fever Comment: Had SIRS at admission. H/o vomiting with b/l lower lobe infitrates on CT-suspect pt has aspiration pneumonia that was present at admission cont Zosyn (8) DVT prophylaxis Comment: Low risk, SCD's Status and Disposition: inpatient
[2018-02-11] MEDS: LORazepam TAB(*) 0.5 MG PO PRN (16:48)
[2018-02-12] MEDS: Piperacillin/Tazobac ADVAN(*) 3.375 GM in NS 0.9% 50 ML* 50 ML IVPB SCH ×2 (04:53→11:25)
[2018-02-12] MEDS: LORazepam TAB(*) 0.5 MG PO PRN (04:58)
[2018-02-12] MEDS: Nicotine Inhaler* 10 MG AMP INH PRN (04:58)
[2018-02-12 08:32] LABS: EGFR Non-African American 151.5 (>60)
[2018-02-12] MEDS ORDERED: Magnesium Sulfate IV* 3 GM in NS 0.9% 100 ML* 100 ML IVPB ONE (09:26)
[2018-02-12] MEDS ORDERED: Magnesium Sulfate 2 GM IV IVPB ONE (09:45)
[2018-02-12] MEDS: Omeprazole CAP* 20 MG PO SCH (10:07)
[2018-02-12] MEDS: Magnesium Oxide TAB* 400 MG PO SCH (10:07)
[2018-02-12] MEDS: Folic Acid TAB* 1 MG PO SCH (10:07)
[2018-02-12] MEDS: Sucralfate TAB* 1 GM PO SCH ×2 (10:07→14:15)
[2018-02-12] MEDS: Thiamine TAB* 100 MG TAB PO SCH (10:08)
[2018-02-12] MEDS ORDERED: Magnesium Sulfate 1 GM IV* 1 GM/100 ML BAG IV ONE (10:45)
[2018-02-12] MEDS: Ondansetron INJ* 2 MG/ML VIAL IV PRN (11:25)
[2018-02-12] MEDS: Acetaminophen ADULT LIQ* 650 MG/20.3 ML UDC PO PRN (11:25)
[2018-02-12 15:00] VITALS: BP 121/67
--- NOTE | 2018-02-13 07:44 | DS ---
CC: Dr. Christina; Dr. Jin; Dr. Peñaloza; Dr. Alejandra DISCHARGE SUMMARY: DATE OF ADMISSION: 02/09/18 DATE OF DISCHARGE: 02/12/18 PRIMARY CARE PROVIDER: Dr. Christina. DISCHARGE DIAGNOSES: 1. Elevation of liver function tests, likely due to alcoholic hepatitis, which was acute. 2. Microcytic anemia due to acute gastrointestinal bleed, likely due to gastritis or Louise-Solis tear in a patient with a history of chronic anemia and pancytopenia related to alcoholism. 3. Severe hypomagnesemia. 4. Mild hyponatremia. 5. Aspiration pneumonia. 6. Alcohol withdrawal. SECONDARY DIAGNOSES: 1. History of alcoholism. 2. History of pancytopenia due to alcoholism. 3. History of hepatitis C. MEDICATIONS AT DISCHARGE: Include: 1. Thiamine 100 mg p.o. daily. 2. Folic acid 1 mg daily. 3. Augmentin 500 mg b.i.d. for a total of 5 days. 4. BuSpar 7.5 mg b.i.d. 5. Magnesium oxide 800 mg daily. 6. Prilosec 20 mg b.i.d. 7. Carafate 1 g 3 times a day with meals. The patient is recommended to have complete metabolic panel drawn in approximately 5 days with results to be sent to Dr. Christina. The patient is scheduled with Dr. Christina for first visit for her primary care provider appointment on 02/23/18 at 1:45 p.m. CONSULTATIONS DURING THE HOSPITAL STAY: Included: 1. Dr. Peñaloza from Gastroenterology. 2. Dr. Jin from Gastroenterology. 3. Dr. Alejandra from Surgery. LABORATORY DATA AND STUDIES PERFORMED DURING THE HOSPITAL STAY: Included, on , sodium of 127, potassium 3.6, chloride 98, carbon dioxide 20, BUN 4, creatinine 0.49, calcium of 7.3, magnesium of 1.5 prior to IV repletion. At discharge, total bilirubin of 3.3, AST of 79, ALT of 51, alkaline phosphatase of 552. Lipase was noted to be 32 on 02/10/18. Quantitative beta-HCG was 2.19 on admission. Influenza testing was negative on admission. CBC at the time of discharge showed a white blood cell count of 7.0, hemoglobin of 9.6, hematocrit of 29, MCV of 74, and platelets of 72. Urine tox screen was negative. Serum alcohol was at 40 on admission. HIDA scan obtained on 02/10/18, impression: "Normal distribution of the radiopharmaceutical in the gallbladder . No evidence of acute cholecystitis. Delayed visualization of the small bowel." CT of the abdomen and pelvis obtained on 02/09/18, impression: "Bilateral lower lobe ground-glass infiltrates and trace of right pleural effusion. Thickening of wall of the gallbladder suggesting possibility of acute cholecystitis. Heterogeneous enhancement of the kidney suggestive of pyelonephritis. Hepatosplenomegaly and hepatic steatosis. Mildly enlarged retroperitoneal lymph nodes." Microbiology test showed stool that was negative for blood on 02/10/18. Blood cultures obtained on 02/09/18 were negative for growth. Urine cultures obtained on 02/09/18 showed no growth. Abdominal ultrasound obtained on admission, impression: "Gallbladder sludge or gravel. Hepatomegaly with hepatic steatosis. The common bile duct measured 0.4 cm." Portable chest x-ray on admission, impression: "No active disease." HOSPITALIZATION COURSE: Lor Oneal is a 27-year-old female with a history of alcoholism, hepatitis C, and pancytopenia due to chronic liver disease due to alcoholism, who presented to the hospital complaining of severe abdominal pain and nausea and vomiting for several days. The patent had been drinking alcohol including larger beers and hard liquor up to admission. She was noted to have marked elevation of liver function tests and on initial abdominal ultrasound, there is question cholecystitis. With an LFT elevation, the lipase was obtained, which was unremarkable. Subsequent CT of the abdomen also questioned cholecystitis and Surgery was asked to consult the patient's case. Dr. Alejandra recommended HIDA scan, which was unremarkable. At this point, gallbladder disease was ruled out. The patient also complained of hemoptysis a couple of days prior to admission. With hemoglobin at 6 on admission, it was likely related to gastritis or Louise - Solis tear. Gastroenterology was consulted by Dr. Davin Anguiano, who saw the patient in consultation. Initially, the patient was not a good candidate for procedures due to withdrawal and later on, she refused to have an upper endoscopy. Having said that, her subsequent stool occult for blood was negative. She was transfused 2 units during her hospital stay and continued to have stable hemoglobin thereafter. She was initially placed on Protonix drips which then were transitioned to proton pump inhibitor twice a day with good results. She also was placed on Carafate with good results and tolerated diet without any problems at the time of discharge and with no abdominal pain or tenderness at discharge. In regards to her alcoholism withdrawal, the patient was placed on Ativan withdrawal protocol as well as thiamine and folate. She had mild withdrawal symptoms and was treated with Ativan accordingly. production line worker saw the patient in consultation and the patient refused any further help with her alcohol problem. She stated that she is aware of the need of not to drink. She was also counseled by myself multiple times during the hospital stay and she was told by myself that she could suffer a liver failure if she does not stop drinking. She is well aware of that and she has promised me that she is not going to drink alcohol after discharge. The patient had continued fevers for several days during her hospital stay. Initially, it was thought to be cholecystitis and she was placed on Zosyn. Nevertheless, cholecystitis was ruled out as noted above. She was noted to have bilateral ground-glass patchy opacities on her lungs and with her history of nausea and vomiting while intoxicated, aspiration pneumonia likely present on admission was diagnosed. The patient was continued to be treated with Zosyn with good results throughout her hospital stay. She is going to be discharged on Augmentin for the next 5 days. The patient's magnesium level was very low during the patient's hospital stay and that was repleted with intravenous magnesium. She is also going to be continued on magnesium p.o., as an outpatient. The patient has a history of anxiety and used BuSpar in the past. I prescribed the patient BuSpar at discharge. PHYSICAL EXAMINATION AT THE TIME OF DISCHARGE: Blood pressure 137/87, heart rate of 66 and regular, respiratory rate 16, oxygen saturation 100% on room air , temperature 98.7. General: The patient is a very pleasant, 27-year-old female who is in no acute distress. Alert, awake, and oriented x3. HEENT: Head is atraumatic, normocephalic. Eyes: Pupils are equal and reactive to light and accommodation. Oropharynx clear. Mucosa moist. Neck: Supple. No JVD, no bruits bilaterally. Cardiovascular: Regular rate and rhythm. No murmur. Respiratory: Clear to auscultation bilaterally. Abdomen: Slightly protuberant, soft, nontender. Bowel sounds in all 4 quadrants. Extremities: There is no edema, pulses +2 bilaterally. There is no clubbing or cyanosis. Evaluation of the skin, the patient is slightly jaundiced with no evidence of ecchymotic areas or rashes. Neuro Evaluation: Speech clear. Cranial nerves II through XII grossly intact. Motor strength is 5/5 bilaterally. Please also note that on the day of discharge, the patient's sodium level was noted to be 127. She has history of mild hyponatremia and had also in the past in the low 130s levels. At this point, I do not suspect that this is an acute change that needs to be further monitored as an intpatient especially if the patient feels so much better and is pain free. I recommended for the patient to drink plenty of liquids and continue with regular diet as tolerated. Her complete metabolic panel, she should have as an outpatient drawn in approximately 5 days and follow up with Dr. Christina with a visit 5 days later. Please note that this is short summary of this patient's hospitalization. Please refer to further medical records for details. TIME SPENT: Approximately 45 minutes was spent on the patient's discharge. [id number]/[facility] #: [id number] JERAMIE
== END 2018-02-12 14:40 | disposition home or self-care (01) | DRG 280 ==
LOC: ED 23:28 → MED 02-09 05:11
PROVIDERS: ADMIT Hospitalist; ATTEND Internal Medicine
PROC: 30233N1 Transfusion of Nonautologous Red Blood Cells into Peripheral Vein, Percutaneous Approach (ICD-10-PCS; principal; 2018-02-09)
DX: K70.10 Alcoholic hepatitis without ascites (principal); K29.71 Gastritis, unspecified, with bleeding; J69.0 Pneumonitis due to inhalation of food and vomit; D61.818 Other pancytopenia; J90 Pleural effusion, not elsewhere classified; K22.6 Gastro-esophageal laceration-hemorrhage syndrome; D62 Acute posthemorrhagic anemia; F10.239 Alcohol dependence with withdrawal, unspecified; E87.1 Hypo-osmolality and hyponatremia; F41.9 Anxiety disorder, unspecified; Y90.2 Blood alcohol level of 40-59 mg/100 ml; D50.9 Iron deficiency anemia, unspecified; F17.210 Nicotine dependence, cigarettes, uncomplicated; R25.1 Tremor, unspecified; N28.89 Other specified disorders of kidney and ureter; R16.2 Hepatomegaly with splenomegaly, not elsewhere classified; K76.0 Fatty (change of) liver, not elsewhere classified; R59.0 Localized enlarged lymph nodes; Z82.49 Family history of ischemic heart disease and other diseases of the circulatory system; Z72.89 Other problems related to lifestyle; Z86.19 Personal history of other infectious and parasitic diseases; Z59.0 Homelessness; E83.42 Hypomagnesemia
CPT/HCPCS: 36415; 71045; 74177; 76705; 78226; 80048; 80053; 80076; 80307; 80320; 81003; 81015; 82140; 82272; 83605; 83690; 83735; 84702; 85014; 85018; 85025; 85027; 85610; 85730; 86078; 86140; 86850; 86900; 86901; 86922; 87040; 87086; 87502; 87651; 99284; 99406; A9270-GY; A9537; G0480; J2060; J2185; J2405; J2543; J3411; J3475; J3480; P9040; Q9967

== ENCOUNTER 2019-03-29 16:48 | Observation (INO) | payer OTHER ==
--- NOTE | 2019-03-29 20:01 | ED ---
Neurological HPI - HPI Summary HPI Summary: This patient is a 28 year old F presenting to ED with a chief complaint of seizure at 1500 today. Patient reports recently being unable to hold down food. She admits to vomiting, nausea, and dizziness. She drank a few sips of alcohol today prior to the seizure. Per spouse, patient experienced dizzy spell after drinking alcohol. Patient rates the pain 0/10 in intensity. Patient was supposed to receive bloodwork to check liver enzymes two months ago due to PMHx of hepatitis C and acute liver failure requiring blood transfusion. She has also previously had one seizure but has not seen a neurologist. Patient does not use drugs but she does smoke tobacco. Patient currently takes Ativan, Suboxone, and gabapentin. PMHx of anemia, pancytopenia, asthma, hepatitis C, seizures r/t EtOH detox, headaches, anxiety, and substance abuse (heroin/EtOH), but no DM, HTN. PSHx of x2. FHx of HTN. Patient states she drinks one pint vodka daily, however her claims she drinks one half-gallon per day. She is a light every day tobacco smoker, and a former heroin user. - History of Current Complaint Chief Complaint: EDSeizure Stated Complaint: SEIZURE,LIVER PER PT Time Seen by Provider: 03/29/19 19:44 Hx Obtained From: Patient, Family/Sand Technologist Onset/Duration: Sudden Onset, Started hours ago - 1500 today Timing: Sudden Onset Current Severity: Mild Number of Seizures: 1 - Lasting 5 minutes, per nurse Pain Intensity: 3 Pain Scale Used: 0-10 Numeric Character: Dizzy, Other: - Nausea, Vomiting Aggravating: Alcohol/Drug Ingestion, Alcohol/Drug Withdrawal Alleviating: Nothing Associated Signs and Symptoms: Positive: Dizziness, Seizure, Nausea/Vomiting, Decreased Oral Intake, Change in Diet - Unable to hold food down Similar Episode/Dx as: One year ago, per spouse Related Hx: Alcohol/Drug Abuse, Seizure - Additional Pertinent History Primary Care Physician: CRISTA - Allergy/Home Medications Allergies/Adverse Reactions: Allergies Allergy/AdvReac Type Severity Reaction Status Date / Time No Known Allergies Allergy Verified 03/29/19 17:07 PMH/Surg Hx/FS Hx/Imm Hx Endocrine/Hematology History: Reports: Hx Anemia, Other Endocrine/Hematological Disorders - pancytopenia Denies: Hx Diabetes Cardiovascular History: Denies: Hx Hypertension Respiratory History: Reports: Hx Asthma GI History: Reports: Other GI Disorders - Hepatitis C Sensory History: Denies: Hx Contacts or Glasses, Hx Hearing Aid, Other Sensory Impairments Opthamlomology History: Denies: Hx Contacts or Glasses, Other Sensory Impairments Neurological History: Reports: Hx Headaches, Hx Seizures - r/t etoh detox Psychiatric History: Reports: Hx Anxiety, Hx Substance Abuse - hx heroin abuse - stopped suboxone 12/2015, etoh abuse - Surgical History Surgery Procedure, Year, and Place: x2 Hx Anesthesia Reactions: No - Immunization History Date of Tetanus Vaccine: unk Date of Influenza Vaccine: unk Infectious Disease History: No Infectious Disease History: Reports: Hx Hepatitis - Hepatits C Denies: Hx Human Immunodeficiency Virus (HIV), Hx of Known/Suspected MRSA, Hx Shingles, Hx Tuberculosis, Hx Known/Suspected VRE, Traveled Outside the [place] in Last 30 Days - Family History Known Family History: Positive: Hypertension Negative: Other - alcohol abuse - Social History Alcohol Use: Daily Alcohol Amount: one pint of vodka per day Hx Substance Use: Yes Substance Use Type: Reports: None Substance Use Comment - Amount & Last Used: former heroin use per pt Hx Tobacco Use: Yes Smoking Status (MU): Light Every Day Tobacco Smoker Type: Cigarettes Have You Smoked in the Last Year: Yes Review of Systems Negative: Fever Positive: Vomiting, Nausea Neurological: Other - Dizziness All Other Systems Reviewed And Are Negative: Yes Physical Exam - Summary Physical Exam Summary: VITAL SIGNS: Reviewed. GENERAL: Patient is a well-developed and nourished female who is lying comfortable in the stretcher.Patient is not in any acute respiratory distress. HEAD AND FACE: No signs of trauma. No ecchymosis, hematomas or skull depressions. No sinus tenderness. EYES: PERRLA, EOMI x 2, No injected conjunctiva, no nystagmus. No photophobia. EARS: Hearing grossly intact. Ear canals and tympanic membranes are within normal limits. MOUTH: Oropharynx within normal limits. NECK: Supple, trachea is midline, no adenopathy, no JVD, no carotid bruit, no c- spine tenderness, neck with full ROM. No meningeal signs, no Kernig's or brudzinskis signs. CHEST: Symmetric, no tenderness at palpation LUNGS: Clear to auscultation bilaterally. No wheezing or crackles. CVS: Regular rate and rhythm, S1 and S2 present, no murmurs or gallops appreciated. ABDOMEN: Soft, non-tender. No signs of distention. No rebound no guarding, and no masses palpated. Bowel sounds are normal. EXTREMITIES: FROM in all major joints, no edema, no cyanosis or clubbing. NEURO: Alert and oriented x 3. No acute neurological deficits. Speech is normal and follows commands. SKIN: Dry and warm GCS: 15 Triage Information Reviewed: Yes Vital Signs On Initial Exam: Initial Vitals Temp Pulse Resp BP Pulse Ox 98.0 F 120 16 124/93 96 03/29/19 16:59 03/29/19 16:59 03/29/19 16:59 03/29/19 16:59 03/29/19 16:59 Vital Signs Reviewed: Yes Procedures - Ultrasound No standard instances Ultrasound: normal - Bedside US was used to establish IV access and obtain bloodwork Diagnostics - Vital Signs Vital Signs Temp Pulse Resp BP Pulse Ox 03/29/19 19:02 98.3 F 99 15 118/80 98 03/29/19 16:59 98.0 F 120 16 124/93 96 - Laboratory Result Diagrams: 03/29/19 20:33 03/29/19 20:33 Lab Statement: Any lab studies that have been ordered have been reviewed, and results considered in the medical decision making process. - EKG 2147 Cardiac Rate: NL - 87 BPM EKG Rhythm: Sinus Rhythm ST Segment: Normal Summary of EKG Findings: NSR 87 BPM, no ST elevation, normal axis Re-Evaluation - Re-Evaluation First Eval Re-Evaluation Time: 19:59 Comment: Bedside US was used to place IV and obtain bloodwork. Second Eval Re-Evaluation Time: 21:34 Comment: Discussed results with patient. Patient will be admitted to hospital under Dr. Velasquez. Patient understands and agrees with this plan. Course/Dx - Course Assessment/Plan: This patient is a 28-year-old female who presents to the emergency department with a chief complaint of having a seizure. The patient reports that she is an alcoholic and the last drink she had was this morning. Patient has a history 1 seizure before when she was withdrawing. Patient also reports that she has history of liver failure. She has no other complaints. And blood work shows a wbcs of 3.4, red blood cells of 3.3, hemoglobin 11.1, hematocrit 33 and platelets. Sodium 129, potassium at 3.2 for which the patient was given potassium chloride by mouth. Glucose is 102, lactic acid is 2.9, total bilirubin is 2.1, GGT is 602, AST 178, AST of 69, alkaline phosphatase of 181, ammonia 65, serum alcohol is 58. In the ED course the patient was given IV fluids, and she has remained hemodynamically stable. In the ED course the patient was given lactulose. I discussed my physical exam findings and test results with Dr. Velasquez and she accepted the patient for admission. I also spoke with the patient about getting detox appropriately through inpatient detox and she understands and agrees. - Diagnoses Provider Diagnoses: Hepatic encephalopathy, Liver failure, Jaundice, Hypokalemia - Physician Notifications Discussed Care Of Patient With: Meaghan Velasquez Time Discussed With Above Provider: 21:32 Instructed by Provider To: Admit As Inpatient - Discussed the patient case with Dr. Velasquez hospitalist who accepted the patient for admission. Patient will be admitted with dx of hepatic encephalopathy, liver failure, jaundice, and hypokalemia. Discharge - Sign-Out/Discharge Documenting (check all that apply): Patient Departure - admit Patient Received Moderate/Deep Sedation with Procedure: No - Discharge Plan Condition: Good Disposition: ADMITTED TO [facility] Referrals: Jenn Morgan NP [Primary Care Provider] - - Billing Disposition and Condition Condition: GOOD Disposition: Admitted to [facility] - Attestation Statements Document Initiated by Zhange: Yes Documenting Scribe: Jose C Gong Provider For Whom Joe is Documenting (Include Credential): Torey Gomez MD Scribe Attestation: I, Jose C Gong, scribed for Torey Gomez MD on 03/29/19 at 2200. Scribe Documentation Reviewed: Yes Provider Attestation: The documentation as recorded by the joe, Jose C Gong accurately reflects the service I personally performed and the decisions made by me, Torey Gomez MD Status of Scribe Document: Viewed
[2019-03-29] MEDS ORDERED: NS 0.9% 1000 ML** 1,000 ML IV ONE (20:33)
[2019-03-29 20:59] LABS: Hematocrit 33 % (33-41); Hemoglobin 11.1 g/dL (12.0-16.0); Mean Corpuscular HGB Conc 34 g/dL (31-36); Mean Corpuscular Hemoglobin 34 pg (27-31); Mean Corpuscular Volume 100 fL (80-97); Red Cell Distribution Width 18 % (10.5-15); White Blood Count 3.4 10^3/uL (3.5-10.8)
[2019-03-29 21:00] LABS: Activated Partial Thrombo Time 28.3 seconds (26.0-36.3); INR 1.15 (0.82-1.09)
[2019-03-29 21:06] LABS: Albumin 3.3 g/dL (3.2-5.2); Albumin/Globulin Ratio 0.8 (1-3); BUN/Creatinine Ratio 6.9 (8-20); Calcium 8.6 mg/dL (8.6-10.3); EGFR African American 116.7 (>60); EGFR Non-African American 96.5 (>60); Globulin 4.1 g/dL (2-4); Potassium 3.2 mmol/L (3.5-5.0); Total Bilirubin 2.1 mg/dL (0.2-1.0); Total Protein 7.4 g/dL (6.4-8.9)
[2019-03-29] MEDS ORDERED: Potassium Chlor TAB* 20 MEQ TAB.ER PO ONE (21:20)
[2019-03-29 21:22] LABS: ABS Basophils 0 10^3/ul (0-0.2); ABS Eosinophils 0 10^3/ul (0-0.6); ABS Lymphocytes 1.3 10^3/ul (1.0-4.8); ABS Monocytes 0.3 10^3/ul (0-0.8); ABS Neutrophils 1.7 10^3/ul (1.5-7.7); ABS Nucleated RBC 0 10^3/ul; Alcohol 58 mg/dL (<10); Eosinophil % 0.6 %; Lymphocyte % 39.9 %; Mean Platelet Volume 10.5 fL (7.4-10.4); Nucleated Red Blood Cells % 0.4; Platelet Count 38 10^3/uL (150-450)
[2019-03-29 21:49] LABS: Magnesium 1.4 mg/dL (1.9-2.7)
[2019-03-29] MEDS ORDERED: Acetaminophen TAB* 325 MG ONE (22:09)
[2019-03-29] MEDS ORDERED: Acetaminophen TAB* 325 MG PO ONE (22:11)
[2019-03-29 22:17] LABS: Urine Appearance Cloudy; Urine Bacteria 2+ (Absent); Urine Bilirubin Negative (Negative); Urine Blood 1+ (Negative); Urine Color Amber; Urine Glucose Negative (Negative); Urine Ketones Negative (Negative); Urine Nitrite Positive (Negative); Urine Protein 1+(30 mg/dL) (Negative); Urine Red Blood Cell Trace(0-2/hpf) (Absent); Urine Specific Gravity 1.011 (1.010-1.030); Urine Squamous Epithelial Cell Present (Absent); Urine Urobilinogen Positive (Negative); Urine White Blood Cell 2+(11-20/hpf) (Absent)
[2019-03-29 22:48] LABS: C Reactive Protein 2.42 mg/L (<8.01)
[2019-03-29 22:56] LABS: HCG Pregnancy < 0.60 mIU/mL
[2019-03-30] MEDS ORDERED: NS 0.9% 1000 ML** 1,000 ML IV SCH (00:15)
[2019-03-30] MEDS ORDERED: Acetaminophen TAB* 325 MG PO PRN (00:20)
[2019-03-30] MEDS ORDERED: Thiamine IV* 100 MG/ML 2 ML VIAL IM ONE (00:20)
[2019-03-30] MEDS ORDERED: LORazepam INJ* 2 MG/ML 1 ML VIAL IV PUSH SCH (01:00)
[2019-03-30] MEDS ORDERED: Lorazepam PYXIS KEY PRN (01:09)
[2019-03-30] MEDS ORDERED: Ondansetron INJ* 2 MG/ML VIAL IV PRN (01:18)
[2019-03-30] MEDS ORDERED: NICOTINE 4 MG MT PRN (06:10)
--- NOTE | 2019-03-30 06:33 | HP ---
HISTORY AND PHYSICAL: DATE OF ADMISSION: 03/29/19 PRIMARY CARE PROVIDER: CÉSAR Anna, NIGHAT Durbin. CAR INSTALLATIONS SUPERVISOR: Hillary Chand, patient's mother. CODE STATUS: Full. SOURCE OF INFORMATION: HPI is obtained from chart as well as interview with the patient, who is a fair historian. CHIEF COMPLAINT: Seizure. HISTORY OF PRESENT ILLNESS: This is a 28-year-old female with past medical history of polysubstance abuse with distant IV drug abuse, currently in remission on medication-assisted therapy, and with current ongoing alcohol use disorder; severe with dependence, chronic hepatitis C who presents tonight with witnessed seizure in the setting of alcohol use. She and her were at [facility] getting toiletries and she went to the bathroom. She felt odd and asked for help and staff there said as she lowered to the ground, she began to have a tonic-clonic seizure for roughly 5 minutes. No bladder or bowel incontinence and was noted to have upper extremity and lower extremity mild shaking. No tongue biting and responsive somewhat during the event, although she has no recollection of that. She has no headaches and no vision changes as a result, and because of the witnessed seizure at [facility], she was sent to the emergency room. Patient reports she has had a seizure in the past and this is also in the setting of alcohol use, but has never been diagnosed as having seizure disorder and did not have seizures as a child. Furthermore, she says that she usually drinks a pint of vodka daily, but for the last 2 days, she has been feeling more weak and lethargic and that she has been drinking less, really only a couple of beers per day, and she has felt like she has been going into mild alcohol withdrawal with shaking and nausea. Otherwise, she denies chest pain, new belly or urinary tract symptoms, or new neurologic symptoms. ER COURSE: In the emergency room, temperature is 99, heart rate 73, respiratory rate is 18, satting 100% on room air, blood pressure is 121/67. Labs are drawn , which show hyponatremia, hypokalemia, ammonia is elevated at 65, LFTs are elevated, and she has an elevated lactic acid, and UA was done which was concerning for UTI. Furthermore, she has pancytopenia. An EKG was done, which shows sinus tachycardia. The hospitalists were asked to evaluate this patient for concern for acute alcohol withdrawal with multiple electrolyte abnormalities. PAST MEDICAL HISTORY: 1. Polysubstance use disorder with heroin and IV drug use in the past, in remission for 8 years, on intermittent medication-assisted therapy. 2. Alcohol use disorder, severe, current/ongoing, complicated by dependence. 3. Anxiety. 4. Elevated LFTs. 5. Hepatitis C, chronic. 6. Pancytopenia. PAST SURGICAL HISTORY: . MEDICATIONS: The patient reports: 1. Folic acid 1 mg p.o. daily. 2. Omeprazole 20 mg p.o. b.i.d. 3. Sucralfate 1 g p.o. t.i.d. 4. Thiamine 100 mg p.o. daily. 5. Buspirone 7.5 mg p.o. b.i.d. 6. Magnesium oxide 800 mg p.o. daily. The patient reports she does not take any of these medications, although she does report that she takes Suboxone 8 mg strips divided up over the course of the day. I did check her [employer] and there is no evidence of her being prescribed Suboxone, although she reports she gets it at [facility]. ALLERGIES: No known drug allergies. FAMILY HISTORY: Reports that her parents are healthy. SOCIAL HISTORY: Patient lives with her , currently domiciled and on disability. Alcohol use is currently daily with daily consumption of 1 pint of vodka. Tobacco use is quarter pack per day with a [id number] history. Illicits: She currently denies IV drug use. Does have a history of heroin abuse. REVIEW OF SYSTEMS: Constitutional: Positive for malaise. Negative for fevers or chills. HEENT: Denies headaches, vision changes, sore throat. Cardiovascular: Denies chest pain, palpitations, orthopnea. Respiratory: Denies shortness of breath, cough, pleuritic chest pain. GI: Denies nausea, vomiting, diarrhea, or abdominal pain. : Denies dysuria or hematuria. Musculoskeletal: Denies myalgias, arthralgias. Skin: Denies any rashes or lesions. Neurologic: Denies focal weakness or numbness, although does report the witnessed seizure, although she has no postictal component. Psychiatric: Denies depression or anxiety. Endocrine: Denies polyuria or polydipsia. Heme: Denies new bruising, bleeding, or lymphadenopathy. PHYSICAL EXAMINATION GENERAL APPEARANCE: This is a well-appearing, slightly tremulous young woman, sitting up in bed, in no acute distress. at bedside. She is A and O x3. VITAL SIGNS: At the time of physical exam are temperature 98.3, blood pressure 118/80, pulse rate 99, oxygen saturation 98% on room air, respiratory rate 15. HEENT: Normocephalic, atraumatic. Pupils are equal and reactive. Extraocular muscles intact. Sclerae are faintly icteric. She has dry mucous membranes and no other oral lesions. NECK: Supple with no supraclavicular or cervical lymphadenopathy. CHEST: Chest has diffuse rhonchi throughout right lung, but no other crackles or areas of focal consolidation. CARDIAC: Sinus tachycardia with no murmurs, rubs, or gallops. ABDOMEN: Belly is soft and nontender, nondistended. She does have a possible positive fluid wave. No caput. No spider angiomata. No tenderness to palpation in right upper quadrant, although she does have palpable liver edge. EXTREMITIES: She has no lower extremity edema and 2+ pedal pulses bilaterally. MUSCULOSKELETAL: She moves all 4 extremities spontaneously. NEUROLOGIC: Her cranial nerves II through XII are intact. She has 5/5 strength in all 4 extremities and sensation is intact. She does have mild [id number] tremulousness and she has no asterixis noted. She is A and O x4. Her speech is fluent and clear. DIAGNOSTIC STUDIES/LAB DATA: White blood cell count is 3.4, hemoglobin is 11.1 , hematocrit is 33, platelets are 38. INR is 1.15. Sodium is 129, potassium is 3.2, chloride is 94, carbon dioxide is 25, anion gap is 10, BUN is 5, creatinine 0.72, glucose 102, lactic acid is 2.9. Total bilirubin is 2.10, GTT is 602, AST is 178, ALT is 69, alkaline phosphatase 181, ammonia 65, lipase is 48. UA is done which is positive for proteins, blood, nitrites, leuk esterase, white blood cells, and bacteria with squamous epithelial cells. EKG was done which showed sinus tachycardia with no acute findings. Labs and EKG reviewed by myself. ASSESSMENT AND PLAN: This is a 28-year-old female with past medical history of polysubstance abuse, currently with ongoing alcohol use disorder and dependence , chronic hepatitis C, and history of elevated LFTs and pancytopenia who presents tonight with a witnessed seizure, likely secondary to alcohol withdrawal, also with electrolyte abnormalities, elevated LFTs. 1. Seizure. The patient had a witnessed seizure and has no postictal state. Her neurologic exam is intact and she is A and O x4. Most likely, this is in the setting of known alcohol withdrawal. We will continue to monitor her from an alcohol withdrawal protocol and we will hold on neurology consult at this time. 2. Alcohol use disorder, current withdrawal. Patient has signs and symptoms of mild withdrawal on admission. We will place her on [facility] with IV lorazepam, thiamine, folate, fluid resuscitation, and electrolyte resuscitation. A social work consult has been placed. Patient is already placed in some form of groups with [facility]. She has done, she reports, 13 inpatient rehabilitation stays and none of them has been successful. Last period of extended sobriety was several years ago with her first child, unable to be sustained. She expresses very little interest in inpatient rehabilitation, although she reports that she would continue with intensive outpatient rehabilitation if she was able to withdraw safely within the hospital. 3. Elevated LFTs, history of known chronic hepatitis C as well as signs of decompensation with possible positive ascites, new jaundice, prolonged INR, and symptoms concerning for advancing to cirrhosis. An abdominal ultrasound was ordered and we will follow up on these images as needed. 4. Electrolyte abnormalities. We will replete potassium and magnesium and hydrate with IV fluids to correct lactic acidosis. 5. Pancytopenia. This is most likely secondary in the setting of bone marrow suppression from chronic alcohol use disorder and we will continue to monitor. 6. Polysubstance use disorder. The patient reports she is on medication- assistive therapy with Suboxone. She has no prescription for Suboxone seen in the [facility] [employer] monitoring system, so we will hold currently on this admission. She reports that it is prescribed to her. We can reach out to the [facility] tomorrow to see if this is, in fact, part of her treatment plan. I have a low threshold to resume medication-assisted therapy if she is to also withdraw from opiates. 7. DVT prophylaxis. We will ambulate this patient. She is low risk and her platelets are low at baseline. 8. Diet. N.p.o. for ultrasound status. 9. Disposition. She is stable for admission to the [address] [place] [address]. 10. Code status. Full. TIME SPENT: Forty minutes were spent in the planning of this admission with over half of that spent at the bedside of the patient providing direct patient care. The plan of care was discussed with the patient and her , who are agreeable to inpatient admission and further help with sobriety and safe withdrawal. [id number]/[facility] #: [id number] JERAMIE
[2019-03-30] MEDS ORDERED: Nicotine PATCH 14 MG/24 HR* PATCH ONE (06:54)
[2019-03-30] MEDS: Nicotine PATCH 14 MG/24 HR* PATCH TRANSDERM SCH ×3 (06:56→07:42)
[2019-03-30] MEDS ORDERED: Permethrin 1% LOTION* 59 ML BTL TOPICAL ONE (08:54)
[2019-03-30] MEDS ORDERED: Folic Acid TAB* 1 MG PO SCH (09:00)
[2019-03-30] MEDS ORDERED: Magnesium Oxide TAB* 400 MG PO SCH (09:00)
[2019-03-30] MEDS ORDERED: busPIRone TAB* 15 MG PO SCH (09:00)
--- NOTE | 2019-03-30 09:03 | PN ---
Subjective Date of Service: 03/30/19 Interval History: HOSPITALIST PROGRESS NOTE Patient seen and examined at bedside. Care reviewed and d/w Alis Jimenez RN. She offers no complaints at this time. Has had multiple seizures in the past and was treated with Tegretol. She stopped taking it 3 years ago because "it didn't make me feel well". States she had only 2 "big" seizures, the others were "small". Contacted her PCP - patient is on Lorazepam as outpatient, but continues to drink. She was treated for lice as outpatient, but reportedly still has significant infestation. Family History: Unchanged from Admission Social History: Unchanged from Admission Past Medical History: Unchanged from Admission Objective Active Medications: Acetaminophen (Tylenol Tab*) 650 mg PO Q4H PRN PRN Reason: PAIN Lorazepam (Ativan Inj*) 0 - 3 [address] IV PUSH .[facility] PROTOCOL LUC; Protocol Magnesium Oxide (Magox 400 Tab*) 400 mg PO DAILY [facility] Miscellaneous (Ativan Pyxis Miranda) 1 ea N/A .PYXIS MIRANDA PRN PRN Reason: PER PROTOCOL Multivitamins/Minerals (Theragran/Minerals Tab*) 1 tab PO DAILY [facility] Nicotine (Nicotine Patch 14 Mg/24 Hr*) 1 patch TRANSDERM DAILY [facility] Last Admin: 03/30/19 07:42 Dose: Not Given Nicotine Polacrilex (Nicotine Lozenge*) 4 mg MT Q2H PRN PRN Reason: CRAVINGS Ondansetron HCl (Zofran Inj*) 4 mg IV Q6H PRN PRN Reason: NAUSEA Pharmacy Profile Note (Nicotine Patch Removal Note*) 1 note PATCH OFF 2100 [facility] Potassium Chloride (Klor Con Er Tab*) 20 meq PO TID [facility] Thiamine HCl (Vitamin B-1 Tab*) 100 mg PO DAILY [facility] Vital Signs - 8 hr 03/30/19 03/30/19 03/30/19 01:08 01:26 01:40 Temperature 98.5 F 97.9 F 97.8 F Pulse Rate 84 77 72 Respiratory 17 16 16 Rate Blood Pressure 89/61 112/80 112/80 (mmHg) O2 Sat by Pulse 97 99 100 Oximetry 03/30/19 03/30/19 02:14 08:29 Temperature 98.3 F 98.5 F Pulse Rate 87 80 Respiratory 20 20 Rate Blood Pressure 112/80 117/78 (mmHg) O2 Sat by Pulse 100 99 Oximetry Oxygen Devices in Use Now: None Appearance: Young lady, disheveled appearance, lying in bed in NAD. Eyes: No Scleral Icterus Ears/Nose/Mouth/Throat: Mucous Membranes Moist Neck: Trachea Midline Respiratory: Symmetrical Chest Expansion and Respiratory Effort, Clear to Auscultation Cardiovascular: RRR - Normal S1 and S2 Extremities: No Edema Neurological: Alert and Oriented x 3, NL Muscle Strength and Tone, - - Mild extremities tremors Result Diagrams: 03/29/19 20:33 03/29/19 20:33 Assess/Plan/Problems-Billing Assessment: - Patient Problems (1) Seizure disorder Comment: - Patient has known h/o seizure disorder and was actually on Tegretol in the past. - Suspect this episode now is secondary to UTI lowering her seizure threshold and possible withdrawal as her alcohol level was 58. - Continue Lorazepam taper. - Seizure precautions. - Will request Neurology consult. (2) Alcohol withdrawal Comment: - Continue WAM protocol. (3) UTI (urinary tract infection) Comment: - Urine culture growing E. coli >100k colonies. - Start Ceftriaxone and follow sensitivity. (4) Lice infested hair Comment: - Permethrin treatment today. (5) Hepatitis C Comment: - Known hepatitis C, probably progressing to cirrhosis with addition of alcohol. - US showed fatty infiltration of the liver. - If patient agrees with blood tests, will send further hepatitis C w/u as patient has not had this done as outpatient. Initially she declined midline placement and was not sure if she would stay in the hospital, but now in agreement. (6) Polysubstance abuse Comment: - Medication list confirmed with PCP - continue Suboxone. (7) DVT prophylaxis Comment: - SCDs. (8) Full code status Status and Disposition: Inpatient.
[2019-03-30 09:57] LABS: Hepatitis B Surface Antigen Nonreactive (Nonreactive)
[2019-03-30 10:23] LABS: Hepatitis C Antibody High Reactive (Nonreactive)
[2019-03-30] MEDS: Potassium Chlor TAB* 20 MEQ TAB.ER PO SCH ×3 (10:25→20:51)
[2019-03-30] MEDS: Thiamine TAB* 100 MG TAB PO SCH (10:25)
[2019-03-30] MEDS: Multivitamins/Minerals TAB PO SCH (10:25)
[2019-03-30] MEDS: Magnesium Oxide TAB* 400 MG PO SCH (10:25)
[2019-03-30] MEDS ORDERED: Nicotine Lozenge* mini 4 MG LOZNG.MINI MT PRN (11:53)
[2019-03-30] MEDS ORDERED: Calcium Carbonate CHEW TAB* 500 MG (TUMS) PO PRN (16:43)
[2019-03-30] MEDS: cefTRIAXone(*) 1 GM in NS 0.9% 50 ML* 50 ML IVPB SCH (17:33)
[2019-03-30] MEDS: LORazepam TAB(*) 1 MG PO SCH (17:33)
[2019-03-30] MEDS: Nicotine Patch Removal NOTE PATCH OFF SCH (20:54)
[2019-03-31] MEDS: LORazepam TAB(*) 1 MG PO SCH ×3 (01:31→21:46)
[2019-03-31] MEDS: Nicotine PATCH 14 MG/24 HR* PATCH TRANSDERM SCH (08:22)
[2019-03-31] MEDS: Magnesium Oxide TAB* 400 MG PO SCH (08:27)
[2019-03-31] MEDS: Potassium Chlor TAB* 20 MEQ TAB.ER PO SCH ×3 (08:27→21:47)
[2019-03-31] MEDS: Thiamine TAB* 100 MG TAB PO SCH (08:27)
[2019-03-31] MEDS: Multivitamins/Minerals TAB PO SCH (08:27)
[2019-03-31] MEDS ORDERED: Magnesium Sulfate 1 GM IV* 1 GM/100 ML BAG IV ONE ×2 (09:46→16:28)
--- NOTE | 2019-03-31 11:43 | CONS ---
NEUROLOGY CONSULTATION NOTE: DATE OF CONSULT: 03/31/19 CONSULTING PROVIDER: Dr. Nu Tejada. REASON FOR CONSULT: Seizure. CHIEF COMPLAINT: Seizure. HISTORY OF PRESENT ILLNESS: Lor Oneal is a 28-year-old right-handed female with a past medical history of alcohol abuse, polysubstance abuse, who consumes a quarter pint of hard liquor and 2 to 3 bottles of beer a day, chronic hepatitis C, who presented to [facility] on 03/29/19 with a witnessed seizure. The patient stated that she was with her fiance at [facility] getting supplies and doing laundry. She felt abnormal and slightly confused and asked the staff for help. She then developed generalized tonic-clonic seizures , which were witnessed by staff members there at [facility]. She stated that she may have had seizures for approximately 4 to 5 minutes. She had jerking of the upper and lower extremities. She had no tongue biting. She denied any incontinence of bowel or bladder function. Following the seizure, the patient had slight confusion, but was able to return to her baseline status after 10 to 15 minutes. The patient currently denied any seizures since hospitalization. She denied any headaches, visual disturbance, swallowing difficulty, speech problem, or focal weakness or paresthesias. The patient stated that she had a similar episode 3 years ago and was placed on carbamazepine. She was unable to tolerate the medication. According to Dr. Tejada whom I discussed the case with , the patient's PCP, apparently the patient possibly had seizures as a child, but had a total of 2 generalized convulsions over the years. In the ED, the patient was found to have a WBC of 3.4, hemoglobin of 11.1, hematocrit of 33, platelet count of 38. Sodium of 129, potassium 3.2, chloride of 94, glucose of 102, lactic acid of 2.9, calcium 8.6, magnesium 1.4. AST of 178, ALT of 69, GGT of 602, ammonia level of 65. Urinalysis shows a presence of pyuria with the presence of 2+ urine bacteria, 1+ leukocyte esterase, and wbc count. Serum alcohol level is 58. Urine toxicology screen was not completed. PAST MEDICAL HISTORY: Polysubstance abuse, alcohol use, anxiety disorder, hepatitis C, pancytopenia, elevated LFTs. PAST SURGICAL HISTORY: . MEDICATIONS: 1. Zofran 4 mg p.o. every 8 hours as needed. 2. Vitamin B complex. 3. Albuterol 2 puffs inhaled every 4 hours as needed. 4. Magnesium oxide 400 mg p.o. daily. 5. Lorazepam 0.5 mg p.o. q.12 hours as needed. 6. Dulera 2 puffs inhaled b.i.d. 7. Gabapentin 300 mg p.o. t.i.d. 8. Citalopram oxalate 10 mg p.o. daily. ALLERGIES: No known drug allergies. FAMILY HISTORY: No family history of stroke or seizures. SOCIAL HISTORY: The patient lives with her fiance. She denied any physical or sexual abuse. She drinks approximately 1 pint of hard liquor and 2 to 3 beers a day. She is informed me that she used to drink a liter of alcohol in the past. She smokes tobacco half a pack per day. She currently denied any IV drug use. She does have history of heroin abuse. REVIEW OF SYSTEMS: A 14-point review of systems was obtained and otherwise negative, except for what was mentioned in the HPI. PHYSICAL EXAM: Vital Signs: Temperature of 98.7, pulse of 90, respiratory rate of 18, oxygen saturation of 97%, blood pressure of 113/79. General: Ill- appearing, frail female in no acute distress. Head: Normocephalic, atraumatic. Eyes: Conjunctivae/corneas are clear. Neck is supple and symmetrical. Lungs are clear to auscultation bilaterally. Extremities: Normal range of motion. Skin: No skin lesions or laceration. Psych: Affect is broad and depressed mood. She denied any suicidal or homicidal ideation. Please note that the patient is currently being treated for a lice. Precautions were followed. Neurological Examination: Mental Status: She is awake, alert and oriented to person, place, time, and general circumstances. She has mild psychomotor slowing. Cranial Nerves: Normal to confrontation bilaterally. Pupils mid range and reactive to light. Normal consensual response. Sensation is intact in the forehead, cheeks, and jaw region bilaterally. There is no facial droop. Symmetrical palatal elevation. Normal strength against resistance. Motor Examination: No abnormal movements or pronator drift. 5/5 strength in the upper and lower extremities bilaterally. Reflexes 1+ throughout the upper and lower extremities. Flexor plantar response. Sensation is intact to light touch throughout. Coordination: Normal [id number] bilaterally. Gait: Narrow based. No ataxia. ASSESSMENT AND RECOMMENDATIONS: Ms. Lor Oneal is a 28-year-old female who has remote history of polysubstance abuse, but ongoing history of alcohol abuse , who presented with seizure. This is the patient's second seizure. There was concern that she may have had seizures as a child prior to her alcohol abuse. The patient was found to have multiple metabolic derangements, most significant hypomagnesemia, hyperammonemia, and mild hyponatremia. She was also found to have a urinary tract infection. Given the metabolic and infectious abnormalities, we have decided not to treat her seizures as these all present with provoking factors. However, there are concerns that she may have a primary generalized epilepsy given the childhood seizures. Therefore, I have requested a bedside routine EEG to evaluate for juvenile myoclonic epilepsy. In the meantime, education and counseling was provided. I encouraged the patient to minimize any alcohol intake. Unfortunately, she is developing liver failure most likely a combination of hepatitis and chronic alcohol use. She would not be a good candidate for medications such as Depakote or phenytoin if she would require antiseizure medication therapy. I would be more than happy to follow up with the patient as an outpatient in 3 to 4 weeks. Continue current treatment for the infection. I also recommend giving her a gram of magnesium and rechecking her magnesium before discharge. I have placed those orders. I have discussed these recommendations with Dr. Tejada. TIME SPENT: I spent a total of 50 minutes, of which more than 50% was spent obtaining history, examining the patient, education, counseling, and discussing the treatment plan with the patient as mentioned above. [id number]/[facility] #: [id number] ADDENDUM: The EEG was normal. Neurology will sign off. Please contact us for any questions or concerns. JERAMIE
[2019-03-31 12:00] LABS: ABS Lymphocytes 0.8 10^3/ul (1.0-4.8); ABS Monocytes 0.3 10^3/ul (0-0.8); Eosinophil % 2.2 %; Hematocrit 31 % (35-47); Hemoglobin 10.3 g/dL (12.0-16.0); Lymphocyte % 36.2 %; Mean Corpuscular HGB Conc 33 g/dL (31-36); Mean Corpuscular Hemoglobin 34 pg (27-31); Mean Corpuscular Volume 103 fL (80-97); Mean Platelet Volume 9.6 fL (7.4-10.4); Nucleated Red Blood Cells % 0.1; Platelet Count 49 10^3/uL (150-450); Red Blood Count 3.04 10^6 /uL (3.70-4.87); Red Cell Distribution Width 19 % (10.5-15); White Blood Count 2.2 10^3/uL (3.5-10.8)
[2019-03-31 12:10] LABS: Albumin 2.9 g/dL (3.2-5.2); Albumin/Globulin Ratio 0.8 (1-3); Calcium 8.9 mg/dL (8.6-10.3); EGFR African American 211.6 (>60); EGFR Non-African American 174.8 (>60); Globulin 3.7 g/dL (2-4); Potassium 4.1 mmol/L (3.5-5.0); Total Bilirubin 1.9 mg/dL (0.2-1.0); Total Protein 6.6 g/dL (6.4-8.9)
--- NOTE | 2019-03-31 13:00 | PN ---
Subjective Date of Service: 03/31/19 Interval History: HOSPITALIST PROGRESS NOTE Patient seen and examined at bedside. Care reviewed and d/w Mariola Wild RN. She feels a little better today, denies urinary complaints. Tremors and diaphoresis are improved. Family History: Unchanged from Admission Social History: Unchanged from Admission Past Medical History: Unchanged from Admission Objective Active Medications: Acetaminophen (Tylenol Tab*) 650 mg PO Q4H PRN PRN Reason: PAIN Calcium Carbonate (Tums*) 500 mg PO Q4H PRN PRN Reason: INDIGESTION Last Admin: 03/30/19 17:34 Dose: 500 mg Ceftriaxone Sodium 1 gm/ (Sodium Chloride) 50 mls @ 200 mls/hr IVPB Q24H [facility] Last Admin: 03/30/19 17:33 Dose: 200 mls/hr Lorazepam (Ativan Inj*) 0 - 3 mg IV PUSH .PER [facility] PROTOCOL [facility]; Protocol Lorazepam (Ativan Tab(*)) 2 mg PO Q12H [facility]; Taper Stop: 04/02/19 12:59 Last Admin: 03/31/19 08:24 Dose: 2 mg Magnesium Oxide (Magox 400 Tab*) 400 mg PO DAILY [facility] Last Admin: 03/31/19 08:27 Dose: 400 mg Miscellaneous (Ativan Pyxis Sheikh) 1 ea N/A .PYXIS SHEIKH PRN PRN Reason: PER PROTOCOL Multivitamins/Minerals (Theragran/Minerals Tab*) 1 tab PO DAILY [facility] Last Admin: 03/31/19 08:27 Dose: 1 tab Nicotine (Nicotine Patch 14 Mg/24 Hr*) 1 patch TRANSDERM DAILY [facility] Last Admin: 03/31/19 08:22 Dose: 1 patch Nicotine Polacrilex (Nicotine Lozenge Mini) 4 mg MT Q2H PRN PRN Reason: CRAVINGS Ondansetron HCl (Zofran Inj*) 4 mg IV Q6H PRN PRN Reason: NAUSEA Pharmacy Profile Note (Nicotine Patch Removal Note*) 1 note PATCH OFF 2100 [facility] Last Admin: 03/30/19 20:54 Dose: 1 note Potassium Chloride (Klor Con Er Tab*) 20 meq PO TID [facility] Last Admin: 03/31/19 08:27 Dose: 20 meq Thiamine HCl (Vitamin B-1 Tab*) 100 mg PO DAILY [facility] Last Admin: 03/31/19 08:27 Dose: 100 mg Vital Signs - 8 hr 03/31/19 03/31/19 03/31/19 06:17 07:14 07:31 Temperature 98.5 F 98.5 F 98.7 F Pulse Rate 80 80 90 Respiratory 18 18 18 Rate Blood Pressure 125/83 125/83 113/79 (mmHg) O2 Sat by Pulse 98 98 97 Oximetry 03/31/19 03/31/19 03/31/19 08:24 10:12 10:57 Temperature 99.3 F Pulse Rate 100 Respiratory 12 18 18 Rate Blood Pressure 114/82 (mmHg) O2 Sat by Pulse 98 Oximetry Oxygen Devices in Use Now: None Appearance: Pleasant young lady lying in bed in NAD. Eyes: No Scleral Icterus Ears/Nose/Mouth/Throat: Mucous Membranes Moist Neck: Trachea Midline Respiratory: Symmetrical Chest Expansion and Respiratory Effort, Clear to Auscultation Cardiovascular: RRR - Normal S1 and S2 Neurological: Alert and Oriented x 3, NL Muscle Strength and Tone Nutrition: Taking PO's Result Diagrams: 03/31/19 10:35 03/31/19 10:35 Microbiology and Other Data: Microbiology 03/29/19 21:57 Urine Culture - Final Urine Escherichia Coli Assess/Plan/Problems-Billing Assessment: Ms Oneal is a 28yo F with PMH of PSA, alcohol abuse, seizures, chronic hepatitis C, pancytopenia, who presented to ED after a seizure. - Patient Problems (1) Seizure disorder Comment: - Patient has known h/o seizure disorder and was actually on Tegretol in the past. - Suspect this episode now is secondary to UTI lowering her seizure threshold and possible withdrawal as her alcohol level was 58. - Continue Lorazepam taper. - Seizure precautions. - Neurology consult appreciated. (2) Alcohol withdrawal Comment: - Continue WAM protocol. (3) UTI (urinary tract infection) Comment: - Urine culture growing E. coli >100k colonies. - Continue Ceftriaxone. (4) Hypomagnesemia Comment: - Replete. (5) Pancytopenia Comment: - Chronic, likely secondary to alcohol induced bone marrow suppression. (6) Lice infested hair Comment: - Permethrin treatment 03/30/19 - repeat in 7 days. (7) Hepatitis C Comment: - Known hepatitis C, probably progressing to cirrhosis with addition of alcohol. - US showed fatty infiltration of the liver. - Further hepatitis C w/u sent. (8) Polysubstance abuse Comment: - Medication list confirmed with PCP - continue Suboxone. (9) DVT prophylaxis Comment: - SCDs. (10) Full code status Status and Disposition: Inpatient.
[2019-03-31 13:22] LABS: Hepatitis B Surface Antigen Nonreactive (Nonreactive)
[2019-03-31 13:46] LABS: Hepatitis B Surface Ab Not Immune (Immune)
[2019-03-31 13:49] LABS: Magnesium 1.6 mg/dL (1.9-2.7)
[2019-03-31] MEDS: cefTRIAXone(*) 1 GM in NS 0.9% 50 ML* 50 ML IVPB SCH (17:13)
[2019-03-31] MEDS: Nicotine Patch Removal NOTE PATCH OFF SCH (21:46)
--- NOTE | 2019-04-01 01:04 | EEG ---
ELECTROENCEPHALOGRAPHY REPORT: DATE OF STUDY: 03/31/19 - ROOM #402 DATE READ: 03/31/19 TIME OF TRACIN:59 -11:25. ORDERED BY: Nu Tejada MD INDICATION: Ms. Oneal is a 28-year-old female with history of alcohol abuse, who presented with seizure. The EEG was requested to evaluate for epileptiform abnormalities. CLINICAL STATE: Waking state. MEDICATIONS: 1. Magnesium. 2. Ativan. 3. Potassium. 4. Rocephin. 5. Nicotine. 6. Multivitamin. 7. Tylenol. 8. Tums. 9. Zofran. REPORT: The waking background showed appropriate organization with clearly defined anterior-posterior voltage and frequency gradients. There was a well defined posterior dominant rhythm or 12 Hz which was symmetric and showed normal reactivity. Anteriorly there was inspected pattern of 4 V, irregular mixed frequencies. Hyperventilation and photic stimulation were not performed. Single electrode EKG showed normal sinus rhythm with a rate of 90 beats per minute. Throughout the recording, there were no epileptiform discharges. IMPRESSION: This is a normal waking EEG. There were no focal or epileptiform abnormalities. [id number]/[facility] #: [id number] MTDAndi
[2019-04-01 06:24] LABS: BUN/Creatinine Ratio 6.1 (8-20); Calcium 8.8 mg/dL (8.6-10.3); EGFR Non-African American 150.4 (>60); Magnesium 1.9 mg/dL (1.9-2.7); Potassium 4.5 mmol/L (3.5-5.0)
[2019-04-01 08:11] VITALS: BP 121/86
[2019-04-01] MEDS: Nicotine PATCH 14 MG/24 HR* PATCH TRANSDERM SCH (08:46)
[2019-04-01] MEDS: LORazepam TAB(*) 1 MG PO SCH (08:47)
[2019-04-01] MEDS: Multivitamins/Minerals TAB PO SCH (08:48)
[2019-04-01] MEDS: Thiamine TAB* 100 MG TAB PO SCH (08:48)
[2019-04-01] MEDS: Potassium Chlor TAB* 20 MEQ TAB.ER PO SCH (08:48)
[2019-04-01] MEDS: Magnesium Oxide TAB* 400 MG PO SCH (08:49)
--- NOTE | 2019-04-02 01:09 | DS ---
CC: Jenn Morgan NP; Dr. Sam DISCHARGE SUMMARY: DATE OF ADMISSION: 03/29/19 DATE OF DISCHARGE: 04/01/19 PRIMARY CARE PROVIDER: Jenn Morgan NP, [facility]. CONSULTING NEUROLOGIST: Dr. Sam. DISCHARGE DIAGNOSES: 1. Seizure disorder. 2. Escherichia coli urinary tract infection. 3. Alcohol withdrawal. 4. Hypomagnesemia. 5. Lice infestation. SECONDARY DIAGNOSES: 1. Polysubstance abuse. 2. Alcohol abuse. 3. Chronic hepatitis C. 4. Pancytopenia. MEDICATION LIST: 1. Vitamin B complex 1 capsule p.o. daily. 2. Albuterol HFA 2 puffs inhale q.4 hours p.r.n. shortness of breath. 3. Ondansetron ODT 4 mg p.o. q.8 hours p.r.n. nausea and vomiting. 4. Suboxone 8/2 mg sublingual daily. 5. Magnesium oxide 400 mg p.o. daily. 6. Dulera 100/5, 2 puffs inhaled b.i.d. 7. Gabapentin 300 mg p.o. t.i.d. 8. Citalopram 10 mg p.o. daily. 9. Thiamine 100 mg p.o. daily. New Medications: 1. Permethrin 1% lotion apply to hair after washing, leave on for 10 minutes and then rinse and comb hair through. 2. Lorazepam taper 1 mg p.o. q.12 hours for 2 more days and then back to usual dose of 0.5 mg p.o. q .12 hours p.r.n. anxiety. 3. Cephalexin 500 mg p.o. q.8 hours for 5 more days. 4. Acetaminophen 650 mg p.o. q.4 hours p.r.n. pain or fever. HOSPITAL COURSE: Ms. Oneal is a 28-year-old lady with a past medical history as stated above that presented to the emergency room after having a tonic-clonic seizure. For more details about her pres entation, I refer you to her history and physical. 1. Seizure. The initial impression was that the patient's seizure was related to alcohol withdrawal . She continues to drink up to 1 pint of vodka a day and her alcohol level on admission was 58. On prior visits, her alcohol level was usually higher than 100 with 2 instances when it was higher than 400. I contacted the patient's PCP, who informed me that the patient had a prior history of seizures and in further conversation with the patient, it appears that she has had seizure since she was a ch ild, but she called them "minor seizures". She states that she had only 2 "big ones", one 3 years ag o when she had been started on Tegretol and the one that prompted this admission. She says that she took Tegretol for 6 months and "didn't like the way it made her feel," so she stopped taking it. The patient was seen in consultation by Neurology (Dr. Sam) and he felt that the patient has a owen te history of polysubstance abuse, but ongoing history of alcohol abuse presenting with a seizure. T his is her second seizure and there was concern that she may have had seizures as a child prior to he r alcohol abuse. She was found to have multiple metabolic derangements, no significant hypomagnesemi a, hyperalbuminemia, and mild hyponatremia. Also found to have urinary tract infection. He felt andrew t the metabolic and infectious abnormalities were the provoking factors and he decided at this point not to treat her seizures. However, there are concerns that she may have a primary generalized epile psy given her childhood seizures, so he requested the routine EEG to evaluate for juvenile myoclonic epilepsy. Her EEG was a normal waking EEG with no focal or epileptiform abnormalities. Dr. Sam di d not feel that any brain imaging was indicated at this time. He felt she would not be a good candidate for medication such as Depakote or phenytoin if she would r equire antiseizure medication therapy. The patient was advised again she follow up with Dr. Sam as outpatient in 3 to 4 weeks. 2. Alcohol withdrawal. The patient was placed on WAM protocol and lorazepam taper and she did well. The plan is to return her to her usual lorazepam dose she was taking prior to her admission. 3. Urinary tract infection. The patient's urine culture grew E. coli greater than 100,000 colonies, resistant to ampicillin and Bactrim. She had no urinary complaints at the time of admission, but he r UA was abnormal. There is concern that the UTI lowered her seizure threshold prompting her present ation. She will complete 5 more days of treatment with cephalexin as an outpatient. 4. Lice infestation. Her PCP reinforced that the patient had known lice infestation that had been p artially treated as outpatient. She was treated with permethrin once again in the hospital and was advised that she needs another rou nd of treatment in 7 days. 5. Liver disease. The patient has known chronic hepatitis C and she continues to drink alcohol, so she has significant LFT abnormalities. Abdomen ultrasound showed hepatomegaly with fatty infiltratio n of the liver. I contacted her PCP and her PCP requested multiple hepatitis C tests as the plan is to initiate her treatment as outpatient, but due to noncompliance, it was very difficult to obtain th is test as outpatient. The patient had improvement on her symptoms and she was felt to be stable for discharge. She was not interested in any inpatient rehab at this time and her plan is to continue to resume her care throug h [facility]. She will be discharged today to follow up with Jenn Morgan as outpatient. PHYSICAL EXAMINATION: Vital Signs: Temperature 98.2, heart rate is 83, respiratory rate is 18, oxyg en saturation is 100% on room air, blood pressure is 121/86. General: The patient is a young lady w ith disheveled appearance, lying in bed, in no acute distress. CVS: Normal S1, S2. Regular rate an d rhythm. Chest: Breath sounds present bilaterally with no added sounds. Neuro: She is alert and o riented x3, able to move all 4 extremities. Face is symmetric. Speech is clear. There is no focal n euro deficit. DIET: Regular diet. ACTIVITIES: As tolerated. DISPOSITION: To home. STATUS WHILE IN THE HOSPITAL: Inpatient. CONDITION AT TIME OF DISCHARGE: Fair. Please keep in mind this is a summarized version of this patie nt's hospital stay. If you need more information, please feel free to call me at [phone] or [facility] se obtain full medical records. TIME SPENT: Approximately 45 minutes were spent to complete this discharge. [id number]/[facility] #: [id number]
[2019-04-02 08:37] LABS: Hepatitis C Genotype 1a (Undetected)
== END 2019-04-01 11:00 | disposition home or self-care (01) | DRG 53 ==
LOC: ED 16:48 → MED 03-30 00:12 → INTOOBSV 03-30 00:12
PROVIDERS: ADMIT Internal Medicine; ATTEND Internal Medicine
DX: G40.409 Other generalized epilepsy and epileptic syndromes, not intractable, without status epilepticus (principal); D61.818 Other pancytopenia; E87.1 Hypo-osmolality and hyponatremia; F10.239 Alcohol dependence with withdrawal, unspecified; N39.0 Urinary tract infection, site not specified; E83.42 Hypomagnesemia; K74.69 Other cirrhosis of liver; B96.20 Unspecified Escherichia coli [E. coli] as the cause of diseases classified elsewhere; Y90.2 Blood alcohol level of 40-59 mg/100 ml; B85.0 Pediculosis due to Pediculus humanus capitis; B18.2 Chronic viral hepatitis C; E87.6 Hypokalemia; F11.21 Opioid dependence, in remission; F41.9 Anxiety disorder, unspecified; F17.210 Nicotine dependence, cigarettes, uncomplicated; Z79.899 Other long term (current) drug therapy; Z79.51 Long term (current) use of inhaled steroids
CPT/HCPCS: 36415; 76700; 80048; 80053; 80074; 80307; 80320; 81003; 81015; 82140; 82977; 83605; 83690; 83735; 84702; 85025; 85610; 85730; 86140; 86703; 86704; 86705; 86706; 86708; 86850; 86900; 86901; 87077; 87086; 87186; 87340; 87522; 87902; 93005; 95816; 99284; A9270-GY; G0480; J0696; J3411; J3475

== ENCOUNTER 2020-03-25 21:07 | Observation (INO) | payer OTHER ==
--- NOTE | 2020-03-25 21:20 | ED ---
Medical Screening - History of Current Complaint Chief Complaint: EDMentalHealth Stated Complaint: 945 PER LAW Time Seen by Provider: 03/25/20 21:19 PMH/Surg Hx/FS Hx/Imm Hx Endocrine/Hematology History: Reports: Hx Anemia, Other Endocrine/Hematological Disorders - pancytopenia Denies: Hx Diabetes Cardiovascular History: Denies: Hx Hypertension Respiratory History: Reports: Hx Asthma GI History: Reports: Other GI Disorders - Hepatitis C Sensory History: Denies: Hx Contacts or Glasses, Hx Hearing Aid, Other Sensory Impairments Opthamlomology History: Denies: Hx Contacts or Glasses, Other Sensory Impairments Neurological History: Reports: Hx Headaches, Hx Seizures - r/t etoh detox Psychiatric History: Reports: Hx Anxiety, Hx Substance Abuse - hx heroin abuse - stopped suboxone 12/2015, etoh abuse - Surgical History Surgery Procedure, Year, and Place: x2 Hx Anesthesia Reactions: No - Immunization History Date of Tetanus Vaccine: unk Date of Influenza Vaccine: unk Infectious Disease History: No Infectious Disease History: Reports: Hx Hepatitis - Hepatits C Denies: Hx Human Immunodeficiency Virus (HIV), Hx of Known/Suspected MRSA, Hx Shingles, Hx Tuberculosis, Hx Known/Suspected VRE, Traveled Outside the [place] in Last 30 Days - Family History Known Family History: Positive: Hypertension Negative: Other - alcohol abuse - Social History Alcohol Use: Daily Alcohol Amount: one pint of vodka per day Hx Substance Use: Yes Substance Use Type: Reports: None Substance Use Comment - Amount & Last Used: former heroin use per pt Hx Tobacco Use: Yes Smoking Status (MU): Light Every Day Tobacco Smoker Type: Cigarettes Have You Smoked in the Last Year: Yes Physical Exam Vital Signs On Initial Exam: Initial Vitals Temp Pulse Resp BP Pulse Ox 99.2 F 98 16 127/100 97 03/25/20 21:15 03/25/20 21:15 03/25/20 21:15 03/25/20 21:15 03/25/20 21:15 Diagnostics - Vital Signs Vital Signs Temp Pulse Resp BP Pulse Ox 03/25/20 21:15 99.2 F 98 16 127/100 97 - Laboratory Lab Statement: Any lab studies that have been ordered have been reviewed, and results considered in the medical decision making process. Discharge ED - Discharge Plan Referrals: Jenn Morgan NP [Primary Care Provider] -
[2020-03-25] MEDS ORDERED: Haloperidol INJ IV/IM* 5 MG/ML AMP IM ONE (21:37)
[2020-03-25] MEDS ORDERED: diPHENhydraMINE IV* 50 MG/ML 1 ml VIAL (BENADRYL) IM ONE (21:37)
[2020-03-25] MEDS ORDERED: LORazepam INJ* 2 MG/ML 1 ML VIAL IM ONE (21:37)
[2020-03-25] MEDS ORDERED: LORazepam INJ* 2 MG/ML 1 ML VIAL ONE (21:38)
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
--- OUTSIDE RECORDS SUMMARY | 2020-03-25 21:58 | XMS REPORT ---
:1990 Author Organization [facility] Care Team Providers Name Role Phone Unavailable Unavailable Unavailable Problems This patient has no known problems. Allergies, Adverse Reactions, Alerts Allergy Allergy Status Severity Reaction(s) Onset Inactive Treating Comments Name Type Date Date Clinician Unknown None Active Unknown None Unknown No Known Allergies For This Patient Medications Ordered Filled Start Stop Current Ordering Indication Dosage Frequency Signature Comments Components Medication Medication Date Date Medication? Clinician (SIG) Name Name No Known No Known No None None None Medications Medications For This For This Patient Patient Procedures This patient has no known procedures. Results This patient has no known results.
--- OUTSIDE RECORDS SUMMARY | 2020-03-25 21:58 | XMS REPORT ---
:1990 Author Organization [facility] Care Team Providers Name Role Phone Unavailable [...]
--- OUTSIDE RECORDS SUMMARY | 2020-03-25 21:58 | XMS REPORT ---
:1990 Author Organization [facility] Care Team Providers Name Role Phone Unavailable [...]
--- OUTSIDE RECORDS SUMMARY | 2020-03-25 21:58 | XMS REPORT ---
:1990 Author Organization [facility] Care Team Providers Name Role Phone Unavailable [...]
--- OUTSIDE RECORDS SUMMARY | 2020-03-25 21:58 | XMS REPORT ---
:1990 Author Organization [facility] Care Team Providers Name Role Phone Unavailable [...]
--- OUTSIDE RECORDS SUMMARY | 2020-03-25 21:58 | XMS REPORT ---
:1990 Author Organization [facility] Care Team Providers Name Role Phone Unavailable [...]
--- OUTSIDE RECORDS SUMMARY | 2020-03-25 21:58 | XMS REPORT ---
:1990 Author Organization [facility] Care Team Providers Name Role Phone Unavailable [...]
--- OUTSIDE RECORDS SUMMARY | 2020-03-25 21:58 | XMS REPORT ---
:1990 Author Organization [facility] Care Team Providers Name Role Phone Unavailable [...]
--- OUTSIDE RECORDS SUMMARY | 2020-03-25 21:58 | XMS REPORT ---
:1990 Author Organization [facility] Care Team Providers Name Role Phone Unavailable [...]
--- OUTSIDE RECORDS SUMMARY | 2020-03-25 21:58 | XMS REPORT ---
:1990 Author Organization [facility] Care Team Providers Name Role Phone Unavailable [...]
--- OUTSIDE RECORDS SUMMARY | 2020-03-25 21:58 | XMS REPORT ---
:1990 Author Organization [facility] Care Team Providers Name Role Phone Unavailable [...]
--- OUTSIDE RECORDS SUMMARY | 2020-03-25 21:58 | XMS REPORT ---
:1990 Author Organization [facility] Care Team Providers Name Role Phone Unavailable [...]
--- OUTSIDE RECORDS SUMMARY | 2020-03-25 21:58 | XMS REPORT ---
:1990 Author Organization [facility] Care Team Providers Name Role Phone Unavailable [...]
--- OUTSIDE RECORDS SUMMARY | 2020-03-25 21:58 | XMS REPORT ---
:1990 Author Organization [facility] Care Team Providers Name Role Phone Unavailable [...]
--- OUTSIDE RECORDS SUMMARY | 2020-03-25 21:58 | XMS REPORT ---
:1990 Author Organization [facility] Care Team Providers Name Role Phone Unavailable [...]
--- OUTSIDE RECORDS SUMMARY | 2020-03-25 21:58 | XMS REPORT ---
:1990 Author Organization [facility] Care Team Providers Name Role Phone Unavailable [...]
--- OUTSIDE RECORDS SUMMARY | 2020-03-25 21:58 | XMS REPORT ---
:1990 Author Organization [facility] Care Team Providers Name Role Phone Unavailable [...]
--- OUTSIDE RECORDS SUMMARY | 2020-03-25 21:58 | XMS REPORT ---
:1990 Author Organization [facility] Care Team Providers Name Role Phone Unavailable [...]
--- OUTSIDE RECORDS SUMMARY | 2020-03-25 21:58 | XMS REPORT ---
:1990 Author Organization [facility] Care Team Providers Name Role Phone Unavailable [...]
[2020-03-25 22:23] LABS: ALT 17 U/L (7-52); AST 23 U/L (13-39); Albumin 3.7 g/dL (3.2-5.2); Albumin/Globulin Ratio 1.1 (1-3); Alkaline Phosphatase 76 U/L (34-104); Anion Gap 6 mmol/L (2-11); BUN/Creatinine Ratio 18.5 (8-20); Blood Urea Nitrogen 12 mg/dL (6-24); CO2 Carbon Dioxide 26 mmol/L (22-32); Chloride 106 mmol/L (101-111); EGFR African American 130.4 (>60); EGFR Non-African American 107.8 (>60); Globulin 3.4 g/dL (2-4); Glucose 93 mg/dL (70-100); Potassium 3.9 mmol/L (3.5-5.0); Sodium 138 mmol/L (135-145); Total Protein 7.1 g/dL (6.4-8.9)
[2020-03-25 22:30] LABS: HCG Pregnancy < 0.60 mIU/mL
[2020-03-25 22:43] LABS: Hematocrit 33 % (35-47); Hemoglobin 10.4 g/dL (12.0-16.0); Mean Corpuscular HGB Conc 32 g/dL (31-36); Mean Corpuscular Hemoglobin 23 pg (27-31); Mean Corpuscular Volume 71 fL (80-97); Platelet Count 99 10^3/uL (150-450); Red Blood Count 4.58 10^6 /uL (3.70-4.87); Red Cell Distribution Width 20 % (10-15); White Blood Count 4.6 10^3/uL (3.5-10.8)
[2020-03-25] MEDS ORDERED: Nicotine* 4MG (FRUIT FLAVOR) GUM PO PRN (22:49)
[2020-03-25] MEDS ORDERED: Nicotine PATCH 21 MG/24 HR* PATCH TRANSDERM ONE (22:49)
[2020-03-25 23:00] LABS: Urine Appearance Turbid; Urine Bilirubin 1+ (Negative); Urine Blood Negative (Negative); Urine Color Amber; Urine Glucose Negative (Negative); Urine Ketones Trace (Negative); Urine Nitrite Positive (Negative); Urine Protein 1+(30 mg/dL) (Negative); Urine Specific Gravity 1.025 (1.010-1.030); Urine Urobilinogen Positive (Negative)
[2020-03-25 23:01] LABS: Urine Bacteria 1+ (Absent); Urine Red Blood Cell Trace(0-2/hpf) (Absent); Urine Squamous Epithelial Cell Present (Absent); Urine White Blood Cell Trace(0-5/hpf) (Absent)
[2020-03-25 23:13] LABS: Acetaminophen < 15 mcg/mL; Alcohol < 10 mg/dL (<10); Salicylate < 2.50 mg/dL (<30)
[2020-03-25 23:24] LABS: Urine Benzodiazepine Screen None Detected (None Detect); Urine Opiates Screen None Detected (None Detect)
[2020-03-25 23:28] LABS: TSH (Thyroid Stimulating Horm) 0.36 mcIU/mL (0.34-5.60)
[2020-03-25 23:33] LABS: ABS Eosinophils 0.3 10^3/ul (0-0.6); ABS Lymphocytes 1.5 10^3/ul (1.0-4.8); ABS Monocytes 0.4 10^3/ul (0-0.8); ABS Neutrophils 2.4 10^3/ul (1.5-7.7); Eosinophil % 6.6 %; Microcytosis 1+
[2020-03-26] MEDS ORDERED: Sulfamethox/Trimethoprim DS 800/160* TAB PO ONE (06:27)
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
[2020-03-26] MEDS ORDERED: Ammonia Inhalant* 1 EA AMP INH ONE (13:47)
[2020-03-26] MEDS ORDERED: Ammonia Inhalant* 1 EA AMP ONE ×2 (13:48→15:51)
[2020-03-26] MEDS: Ammonia Inhalant* 1 EA AMP INH PRN ×2 (16:00→16:30)
[2020-03-26] MEDS ORDERED: NS 0.9% 1000 ML** 1,000 ML IV SCH (18:30)
[2020-03-26] MEDS ORDERED: Ondansetron INJ* 2 MG/ML VIAL IV PRN (18:33)
[2020-03-26 18:37] LABS: Calcium 8.5 mg/dL (8.6-10.3)
[2020-03-26 18:41] LABS: Potassium 4.1 mmol/L (3.5-5.0)
[2020-03-26 18:42] LABS: BUN/Creatinine Ratio 20.3 (8-20); EGFR African American 112.3 (>60); EGFR Non-African American 92.8 (>60)
[2020-03-26] MEDS ORDERED: cefTRIAXone(*) 1 GM in NS 0.9% 50 ML* 50 ML IVPB SCH ×2 (19:00→21:00)
[2020-03-26] MEDS ORDERED: cefTRIAXone VIAL(*) 1,000 MG VIAL IM ONE (20:16)
[2020-03-26] MEDS ORDERED: Lidocaine 1% MPF ** 5 ML VIAL IM ONE (20:20)
[2020-03-26] MEDS ORDERED: Lidocaine 1% MPF ** 5 ML VIAL ONE (20:24)
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
[2020-03-26] MEDS: Lactulose* 15 ML UDC PO SCH (20:32)
[2020-03-26] MEDS ORDERED: Lactulose 300 ML for PR* 10 GM/15 ML BTL PR SCH (21:00)
[2020-03-26] MEDS ORDERED: Sulfamethox/Trimethoprim DS 800/160* TAB PO SCH (21:00)
[2020-03-27] MEDS: Lactulose* 15 ML UDC PO SCH ×2 (10:06→12:33)
[2020-03-27 15:21] VITALS: BP 124/79
[2020-03-27] MEDS ORDERED: Nicotine PATCH 14 MG/24 HR* PATCH TRANSDERM SCH (16:00)
[2020-03-27] MEDS ORDERED: Nicotine Patch Removal NOTE PATCH OFF SCH (21:00)
--- NOTE | 2020-03-28 03:03 | DS ---
CC: Jenn Morgan NP* DISCHARGE SUMMARY: DATE OF ADMISSION: 03/26/20 DATE OF DISCHARGE: 03/27/20 ATTENDING PHYSICIAN: Dr. Bhavna Mcguire* (dictated by Orlin Peacock NP). PRIMARY CARE PHYSICIAN: Jenn Morgan NP PRIMARY DIAGNOSES: 1. Altered mental status. 2. Hepatic encephalopathy. 3. Urinary tract infection. SECONDARY DIAGNOSES: 1. Polysubstance abuse. 2. Chronic hepatitis C. 3. Trauma. 4. Tobacco dependence. HISTORY OF PRESENT ILLNESS AND HOSPITAL COURSE: Ms. Oneal is a 29-year-old female with past medical history significant for hepatitis C, alcohol and polysubstance abuse, trauma, seizure disorder. She presented to the emergency department on 03/25/20 via the police, who had picked her up due to reports of her acting erratically. She had been staying at [facility] and staff members called the emergency department to express concerns about her behavior and noting that she has extensive liver disease. Per provider report, it was noted that she had passed out twice in the [place] the day before she came in. [facility] had ordered for the patient to be brought in by the police. It was noted that throughout the night in the emergency department the patient was not being cooperative and trying to leave her room. She was yelling at staff, becoming agitated, hitting her door to her room. At some point, she was chemically sedated with Haldol, Ativan, and Benadryl. She was able to sleep after this. She was not cooperating with mental health choral director during her stay in the emergency department. Her drug screen was positive for amphetamines. She was noted to have UTI. The patient was also noted to have an ammonia level of 105. Also noted with anemia, which appears to be chronic. She did have blood gasses drawn that showed a normal pH, pO2 of 77. TSH was normal. Kidney function and liver enzymes on arrival were normal. It sounds that if in relation to the patient's behavior and not cooperating with mental health choral director as well as her UTI and high ammonia level, hospital medicine was asked to evaluate the patient for admission. She was taken to the floor at some point. When I saw her earlier today, she was hoping to go home. She was, however, being very cooperative and calm. She seemed to be in her right mind. Denying any SI or HI. She was amenable to stay in the night if necessary and again being very cooperative. She was seen by social work today and it sounds as if she does have a fair amount of support. She has a place where she can stay. She was given information regarding drug rehabilitation. She is part of [facility] and sees Jenn Morgan as her PCP. She has not been on Suboxone in quite some time and if she wants to restart this will have to see her PCP. I did discuss with Dr. Mcguire of patient's current status and being able to leave today. It was decided the patient could leave on appropriate antibiotic therapy as well as lactulose therapy for her ammonia level. Today, the patient denies any chest pain, shortness of breath, nausea, vomiting, diarrhea, abdominal discomfort, difficulty urinating, dysuria, unusual numbness and tingling. STUDIES: Brain CT: Impression states no definite intracranial mass or hemorrhage is noted. PERTINENT LAB DATA: CBC: WBC 4.6, RBC 4.58, hemoglobin 10.4, hematocrit 33, MCV 71, MCH 23, MCHC 32, RDW 20, platelet count 99, MPV 8.0, absolute neutrophils 2.4, absolute lymphocytes 1.5, absolute monocytes 0.4, absolute eosinophil 0.3, absolute basal cell 0, hypochromasia 2+, anisocytosis 1+, microcytosis 1+, elliptocytes 1+. ABGs, pH 7.43, pCO2 39, pO2 77, HCO3 26, O2 saturation 97.9, base excess 1.5. Carbon monoxide screen less than 4. CMP essentially benign. TSH 0.36. Beta-hCG less than 0.6. Ammonia 105. UA showed satya turbid appearing urine, pH 7.0, specific gravity 1.025, protein 1+ , ketones trace, blood negative, nitrite positive, bilirubin 1+, urobilinogen positive, leukocyte esterase trace, wbc trace, rbc trace, squamous epithelial cells present, bacteria 1+, glucose negative. Toxicology, salicylates less than 2.5, opiates not detected, acetaminophen less than 15, barbiturates not detected , not detected, amphetamines presumptive positive, benzodiazepines not detected, cocaine not detected, cannabinoids not detected, serum alcohol less than 10. REVIEW OF SYSTEMS: A 10-point review of systems was completed with the patient. Please see HPI for all pertinent positives and negatives. PHYSICAL EXAMINATION: Constitutional: The patient is lying in bed, cooperative , in no acute distress. Last vital signs: Temp 98, heart rate 87, respiratory rate 14, O2 sat 100%, blood pressure 123/69. HEENT: No scleral icterus noted. Mucous membranes moist. Cardiovascular: Heart rate regular. S1 and S2 present. No murmurs, rubs, or gallops noted. Respiratory: Lung sounds clear throughout. Abdomen: Normoactive bowel sounds. Abdomen is soft, nontender. Extremities: Strength appears within normal limits in all extremities. Neuro: Alert and oriented x3. Psych: Calm, cooperative. No SI or HI. DISCHARGE PLAN: 1. The patient can continue a regular diet. 2. No equipment necessary for discharge. 3. The patient should continue with usual activity level as tolerated. 4. Should return to the emergency department with any chest pain or unusual shortness of breath, with any thoughts of SI or HI, with any notice of altered mental status. 5. Altered mental status and hepatic encephalopathy. The patient was noted to have positive drug screen for methamphetamines. This may very well be cause of her altered mental status and cause of her peculiar behavior over the last couple of days. However, it may be compounded with her high ammonia levels. The patient states that her levels are always high. ICA level of 65 from just about a year ago and ICA level of 39, which is within normal range back in 2018. She has been given information about drug rehabilitation. As far as having hepatic encephalopathy, the patient seemed alert, oriented, and cooperative this morning. It is unknown what her ammonia levels have been over the last year. We will, however, continue with lactulose therapy at discharge. The patient should follow up with PCP within the next week or so. 6. UTI. Given the patient's presentation, although she is denying dysuria. It is reasonable to treat her for UTI at this point. Sensitivities on this specimen has not been performed yet, however, her last urine culture that we have noted in our system was also E. coli and since she had been placed on a cephalosporin here and her last culture showed sensitivity to cefazolin, it is reasonable to keep her on Keflex p.o. when she goes home. A prescription was sent for this. She should take as prescribed. 7. Polysubstance abuse and history of alcohol abuse. Again the patient has information as needed. She has been on Suboxone in the past. She should follow up with her primary care provider, who can help her with other resources to aid in her addiction. 8. Chronic hepatitis C. Again liver function tests were normal. Ammonia was high, ammonia level of 105. Does not appear that the patient is on any treatment for her hepatitis C. This again is something she should follow up with her primary care provider about. 9. History of trauma. The patient should continue to follow with PCP, may benefit from referral to Psychiatry or therapist in relation to her history. I did speak today with Dr. Paul and given the patient's current presentation, I do not seem necessary for Psychiatry to even see her today. 10. Tobacco dependence. The patient was accepting of nicotine replacement therapy at discharge. Prescription for nicotine patch was sent to her pharmacy. Information on how to quit smoking and effects of smoking were given to patient. CONDITION AT DISCHARGE: Stable. DISPOSITION: To [facility]. TIME SPENT: Approximately 60 minutes was spent on this discharge with about 15 to 20 of that being [id number] with the patient, discussing plan of care, interview, and physical exam. This case was discussed with my attending physician, Dr. Mcguire, and she agrees with this plan. ORLIN PEACOCK NP [id number]/[facility] #: [id number] JERAMIE
--- NOTE | 2020-03-28 22:24 | DS ---
ADDENDUM: DISCHARGE SUMMARY: MEDICATIONS AT DISCHARGE: 1. Acetaminophen 650 mg p.o. q.4 hours p.r.n. 2. Albuterol MDI 2 puffs inhaled q.4 hours p.r.n. 3. Cefuroxime 500 mg p.o. b.i.d. x6 more days. 4. Gabapentin 300 mg p.o. t.i.d. 5. Lactulose 15 mL p.o. t.i.d. 6. Lorazepam 0.5 mg p.o. b.i.d. p.r.n. 7. Nicotine patch one 14 mg patch transdermal daily take off at night. ORLIN PEACOCK NP [id number]/[facility] #: [id number]
== END 2020-03-27 04:15 | disposition home or self-care (01) ==
LOC: ED 21:07 → MEDTELE 03-26 18:30
PROVIDERS: ADMIT Internal Medicine; ATTEND Internal Medicine
DX: R41.82 Altered mental status, unspecified (principal); K72.90 Hepatic failure, unspecified without coma; N39.0 Urinary tract infection, site not specified; F19.10 Other psychoactive substance abuse, uncomplicated; B18.2 Chronic viral hepatitis C; F17.210 Nicotine dependence, cigarettes, uncomplicated; F41.9 Anxiety disorder, unspecified; Z79.899 Other long term (current) drug therapy
CPT/HCPCS: 36415; 70450; 80048; 80053; 80307; 80320; 80329; 81003; 81015; 82140; 82375; 82803; 84443; 84702; 85025; 87077; 87086; 87186; 96372; 99285; A9270-GY; G0378; G0480; J0696; J1200; J1630; J2060

== ENCOUNTER 2021-04-19 15:14 | Inpatient (IN) ==
[2021-04-19 17:10] LABS: INR 1.32 (0.82-1.09)
[2021-04-19 17:13] LABS: ABS Eosinophils 0.1 10^3/ul (0-0.6); ABS Lymphocytes 1.8 10^3/ul (1.0-4.8); ABS Monocytes 0.2 10^3/ul (0-0.8); ABS Neutrophils 1.3 10^3/ul (1.5-7.7); Eosinophil % 1.6 %; Hematocrit 24 % (35-47); Hemoglobin 7.4 g/dL (12.0-16.0); Lymphocyte % 52.6 %; Mean Corpuscular HGB Conc 32 g/dL (31-36); Mean Corpuscular Hemoglobin 25 pg (27-31); Mean Corpuscular Volume 80 fL (80-97); Mean Platelet Volume 6.9 fL (7.4-10.4); Nucleated Red Blood Cells % 0.4; Platelet Count 18 10^3/uL (150-450); Red Blood Count 2.93 10^6 /uL (3.70-4.87); Red Cell Distribution Width 20 % (10-15); White Blood Count 3.3 10^3/uL (3.5-10.8)
[2021-04-19 17:24] LABS: Albumin 3.7 g/dL (3.2-5.2); Albumin/Globulin Ratio 0.9 (1-3); Calcium 8.2 mg/dL (8.6-10.3); EGFR African American 171.3 (>60); EGFR Non-African American 141.6 (>60); Globulin 4.3 g/dL (2-4); Potassium 3.7 mmol/L (3.5-5.0); Total Bilirubin 1.7 mg/dL (0.2-1.0)
[2021-04-19 18:13] LABS: Polychromasia 1+
[2021-04-19] MEDS ORDERED: Thiamine 100 MG/ML 2 ml VIAL (200 mg) IM ONE (19:11)
[2021-04-19] MEDS ORDERED: LORazepam 2 mg VIAL 1 ml IV PUSH ONE (19:35)
[2021-04-19] MEDS ORDERED: Lorazepam PYXIS KEY PRN (19:35)
[2021-04-19] MEDS ORDERED: LORazepam 2 mg VIAL 1 ml IV PUSH SCH (20:00)
[2021-04-19] MEDS ORDERED: Ondansetron 4 mg VIAL 2 MG/ML 2 ml VIAL IV PRN (20:01)
[2021-04-19 20:03] LABS: Hepatitis B Surface Antigen Nonreactive (Nonreactive)
[2021-04-19 20:08] LABS: Hepatitis A Ab IgM Negative (Negative)
[2021-04-19 20:09] LABS: Hepatitis B Core IgM Nonreactive (Nonreactive)
[2021-04-19 20:31] LABS: Magnesium 1.5 mg/dL (1.9-2.7)
[2021-04-19] MEDS ORDERED: Magnesium Sulf 4 GM/100 ML IV 4,000 MG/100 ML BAG IVPB ONE (20:38)
[2021-04-19] MEDS ORDERED: Pantoprazole VIAL 40 MG VIAL IV SCH (21:00)
[2021-04-19] MEDS: Thiamine 100 MG/ML 2 ml VIAL 100 MG, Folic Acid IV 1 MG, Multiple Vitamin IV ADULT 10 M... IV ONE (21:15)
[2021-04-19] MEDS ORDERED: Albuterol HFA INHALER 8 gm MDI INH PRN (21:16)
[2021-04-19 22:45] LABS: Hepatitis C Antibody Reactive (Negative)
[2021-04-19 22:56] LABS: Hematocrit 20 % (35-47); Hemoglobin 6.6 g/dL (12.0-16.0)
[2021-04-20] MEDS: Thiamine 100 MG/ML 2 ml VIAL 100 MG, Folic Acid IV 1 MG, Multiple Vitamin IV ADULT 10 M... IV ONE (00:33)
[2021-04-20 02:27] LABS: Urine Appearance Cloudy; Urine Bilirubin Negative (Negative); Urine Blood Negative (Negative); Urine Color Amber; Urine Glucose Negative (Negative); Urine Ketones Negative (Negative); Urine Nitrite Positive (Negative); Urine Protein 1+(30 mg/dL) (Negative); Urine Specific Gravity 1.012 (1.002-1.030); Urine Urobilinogen Positive (Negative)
[2021-04-20 02:57] LABS: Urine Bacteria 1+ (Absent); Urine Red Blood Cell Absent (Absent); Urine Squamous Epithelial Cell Present (Absent); Urine White Blood Cell 2+(11-20/hpf) (Absent)
[2021-04-20 03:10] LABS: Urine Benzodiazepine Screen None Detected (None Detect); Urine Cannabinoids Screen None Detected (None Detect); Urine Opiates Screen None Detected (None Detect)
[2021-04-20] MEDS: Lactated Ringers 1000 ml BAG 1,000 ML IV SCH ×2 (04:21→16:04)
[2021-04-20 07:14] LABS: ABS Lymphocytes 0.8 10^3/ul (1.0-4.8); ABS Monocytes 0.1 10^3/ul (0-0.8); ABS Neutrophils 0.9 10^3/ul (1.5-7.7); Eosinophil % 1.4 %; Hematocrit 22 % (35-47); Hemoglobin 6.9 g/dL (12.0-16.0); Lymphocyte % 44.5 %; Mean Corpuscular HGB Conc 32 g/dL (31-36); Mean Corpuscular Hemoglobin 26 pg (27-31); Mean Corpuscular Volume 81 fL (80-97); Mean Platelet Volume 8.7 fL (7.4-10.4); Nucleated Red Blood Cells % 0.3; Platelet Count 13 10^3/uL (150-450); Red Cell Distribution Width 19 % (10-15); White Blood Count 1.9 10^3/uL (3.5-10.8)
[2021-04-20 07:22] LABS: % Iron Saturation 42 % (15-55); Calcium 6.8 mg/dL (8.6-10.3); EGFR African American 248.1 (>60); EGFR Non-African American 205.1 (>60); Iron 136 ug/dL (50-212); Potassium 3.3 mmol/L (3.5-5.0); Total Iron Binding Capacity 322 mcg/dL (250-450); Transferrin 230 mg/dL (203-362); Unsaturated Iron Binding < 307 ug/dL
[2021-04-20 07:42] LABS: Albumin/Globulin Ratio 0.8 (1-3); Globulin 3.6 g/dL (2-4); Indirect Bilirubin 1.5 mg/dL (0.3-1.0); Total Bilirubin 2.5 mg/dL (0.2-1.0); Total Protein 6.6 g/dL (6.4-8.9)
[2021-04-20 07:45] LABS: Ferritin 12.5 ng/mL (11-307)
[2021-04-20 07:48] LABS: Folate > 20.00 ng/mL (5.90-24.80)
[2021-04-20 07:49] LABS: Vitamin B12 1162 pg/mL (180-914)
[2021-04-20] MEDS: cefTRIAXone 1 gm/50 mL NS BAG 1 GM/50 ML BAG IVPB SCH (07:57)
[2021-04-20] MEDS: Multivitamins/Minerals TAB PO SCH (08:43)
[2021-04-20 08:58] LABS: Magnesium 2.5 mg/dL (1.9-2.7)
[2021-04-20] MEDS ORDERED: Pantoprazole VIAL 40 MG VIAL IV SCH (09:00)
[2021-04-20 18:22] LABS: Mean Platelet Volume 8.1 fL (7.4-10.4); Platelet Count 20 10^3/uL (150-450)
[2021-04-20] MEDS: Pantoprazole VIAL 40 MG VIAL IV SCH (20:58)
[2021-04-20] MEDS ORDERED: Potassium Chloride IV 40 MEQ in Lactated Ringers 1000 ml BAG 1,000 ML IVPB SCH (22:00)
[2021-04-20 22:17] LABS: Hematocrit 23 % (35-47); Hemoglobin 7.4 g/dL (12.0-16.0)
[2021-04-20] MEDS: KCL 20 MEQ/100 ML IVPREMIX 20 MEQ/100 ML BAG IV SCH (22:35)
[2021-04-21] MEDS: KCL 20 MEQ/100 ML IVPREMIX 20 MEQ/100 ML BAG IV SCH (01:19)
[2021-04-21] MEDS: cefTRIAXone 1 gm/50 mL NS BAG 1 GM/50 ML BAG IVPB SCH (06:13)
[2021-04-21] MEDS: Lactated Ringers 1000 ml BAG 1,000 ML IV SCH (06:13)
[2021-04-21 07:02] LABS: Albumin 2.9 g/dL (3.2-5.2); Albumin/Globulin Ratio 0.8 (1-3); Calcium 7.5 mg/dL (8.6-10.3); EGFR African American 167.5 (>60); EGFR Non-African American 138.5 (>60); Globulin 3.5 g/dL (2-4); Total Bilirubin 3.4 mg/dL (0.2-1.0); Total Protein 6.4 g/dL (6.4-8.9)
[2021-04-21 07:11] LABS: ABS Lymphocytes 0.7 10^3/ul (1.0-4.8); ABS Monocytes 0.3 10^3/ul (0-0.8); Eosinophil % 1.8 %; Hematocrit 24 % (35-47); Hemoglobin 7.8 g/dL (12.0-16.0); Lymphocyte % 35.7 %; Mean Corpuscular HGB Conc 33 g/dL (31-36); Mean Corpuscular Hemoglobin 27 pg (27-31); Mean Corpuscular Volume 81 fL (80-97); Mean Platelet Volume 8.3 fL (7.4-10.4); Nucleated Red Blood Cells % 0.3; Platelet Count 20 10^3/uL (150-450); Red Blood Count 2.94 10^6 /uL (3.70-4.87); Red Cell Distribution Width 18 % (10-15)
[2021-04-21] MEDS: Pantoprazole VIAL 40 MG VIAL IV SCH (09:59)
[2021-04-21] MEDS: Multivitamins/Minerals TAB PO SCH (10:00)
[2021-04-21 16:49] VITALS: BP 116/74
== END 2021-04-21 18:45 | disposition home or self-care (01) ==
LOC: ED 15:14 → MED 20:01
PROVIDERS: ADMIT Internal Medicine Interventional Cardiology; ATTEND Internal Medicine